=== PATIENT | male | born 1955 | race Caucasian/White ===

== ENCOUNTER 2023-03-18 17:35 | Inpatient (IN) | payer BC, SELFPAY ==
[2023-03-18] VITALS (20 sets, daily range): BP systolic 112–164; BP diastolic 43–68; PULSE 85–115; RESP 5–24; TEMP 36.9–38.8; O2SAT 94–99; BMI 23.6; BMI 24.9
--- NOTE | 2023-03-18 17:39 | ECG_ITS ---
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
[2023-03-18 18:06] LABS: Hematocrit 28.7 % (42.0-54.0); Hemoglobin 10.1 g/dL (14.0-18.0); Mean Corpuscular HGB Conc 35.2 g/dL (29.9-35.2); Mean Corpuscular Hemoglobin 30.6 pg (25.9-34.0); Platelet Count 125 10^3/uL (150-450); Red Cell Distribution Width 14.6 % (11.0-15.0); White Blood Count 7.1 10^3/uL (4.0-11.0)
[2023-03-18 18:17] LABS: INR 1.18; Prothrombin Time 12.4 sec (9.0-11.6)
--- NOTE | 2023-03-18 18:25 | ED_ITS ---
HPI - General Adult General Chief complaint: Abdominal Pain Stated complaint: G I BLEED Time Seen by Provider: 03/18/23 17:39 Source: patient Mode of arrival: ambulance Limitations: no limitations History of Present Illness HPI narrative: The patient is coming to us with generalized weakness as well as decreased energy and black stool in addition to decreased appetite for the last few days. The patient also have dizziness with standing up. According to the who is his caregiver at home that he is not able to ambulate and does not have the strength. The patient was brought to us by the EMS. He denies any abdominal pain chest pain or any coughing Related Data Allergies Allergy/AdvReac Type Severity Reaction Status Date / Time Penicillins Allergy Unknown Verified 03/18/23 17:39 morphine AdvReac Mild Drowsy Verified 03/18/23 17:39 Review of Systems ROS Status of ROS 10 or more systems reviewed and unremark able except as noted in history and below Exam Narrative Exam Narrative: Nurses notes and vital signs reviewed and patient is not hypoxic. General: Well-appearing and in no apparent distress. Skin: Warm, dry, no pallor noted. No rash. Head: Normocephalic, atraumatic. Neck: Supple, non-tender. Eye: Pupils are equal, round and EOMI. No scleral icterus. Ears, Nose, Mouth, and Throat: TM are clear, no nasal mucosal hypertrophy. Oral mucosa is moist, no posterior oropharynx erythema, uvula is mid-line Cardiovascular: Regular Rate and Rhythm without murmur, gallop or rub. Respiratory: No accessory muscle use or respiratory distress. Lungs are clear to auscultation, no wheezing, rales or rhonchi Chest Wall: no tenderness Back: No midline thoracic or lumbar vertebral tenderness. No CVA tenderness Musculoskeletal: normal ROM, no calf or popliteal tenderness, no lower extremity edema/swelling GI: Abdomen is soft, non-distended. Normal bowel sounds. No masses appreciated. No tenderness to palpation. No rebound, guarding, or rigidity noted. Rectal exam shows no hemorrhoids and no active bleeding Neurological: A&O x4. No cranial nerve dysfunction observed. No truncal ataxia. Moves all extremities. Sensation intact. Psychiatric: Cooperative and interactive. Normal mood and affect. Constitutional Vital Signs, click to edit/add: Last Vital Signs Temp 98.5 F 03/18/23 17:39 Pulse 93 H 03/18/23 17:39 Resp 10 L 03/18/23 17:39 BP 115/65 03/18/23 17:39 Pulse Ox 98 03/18/23 17:39 O2 Del Method Room Air 03/18/23 17:39 Course Vital Signs Vital signs: Vital Signs Temperature 98.5 F 03/18/23 17:39 Pulse Rate 93 H 03/18/23 17:39 Respiratory Rate 10 L 03/18/23 17:39 Blood Pressure 115/65 03/18/23 17:39 Pulse Oximetry 98 03/18/23 17:39 Oxygen Delivery Method Room Air 03/18/23 17:39 Temperature 98.5 F 03/18/23 17:39 Pulse Rate 93 H 03/18/23 17:39 Respiratory Rate 10 L 03/18/23 17:39 Blood Pressure 115/65 03/18/23 17:39 Pulse Oximetry 98 03/18/23 17:39 Oxygen Delivery Method Room Air 03/18/23 17:39 Medical Decision Making MDM Narrative Medical decision making narrative: The patient KG upon presentation showing sinus rhythm with a heart rate of [address] elevation or depression The patient CBC so far shows hemoglobin of 10 it was noted that the blood pressure was low upon arrival According to the he has been having a low blood pressure issue for the last few presentation to his primary care and his blood pressure medication has been lowered. The patient also had no recent blood workup to compare the hemoglobin to. The patient also had a recent urine infection recently Occult stool is negative The patient will mostly need to be admitted due to the fact that he have no strength and needs rehab. The patient workup as well as CAT scan is pending and his care will be transferred to Dr. Kamara Lab Data Labs: Lab Results 03/18/23 03/18/23 Range/Units 17:57 18:13 WBC 7.1 (4.0-11.0) 10^3/uL RBC 3.30 L (4.70-6.10) 10^6/uL Hgb 10.1 L (14.0-18.0) g/dL Hct 28.7 L (42.0-54.0) % MCV 87.0 (80.0-94.0) fL MCH 30.6 (25.9-34.0) pg MCHC 35.2 (29.9-35.2) g/dL RDW 14.6 (11.0-15.0) % Plt Count 125 L (150-450) 10^3/uL MPV 11.0 (9.5-13.5) fL Seg Neuts % (Manual) 91.0 Lymphocytes % (Manual) 4.0 L (20.5-60.0) % Monocytes % (Manual) 5.0 (1.7-12.0) % Eosinophils % (Manual) 0.0 L (0.9-7.0) % Basophils % (Manual) 0.0 L (0.2-2.0) % Neutrophils # (Manual) 6.46 (1.4-6.5) 10^3/uL Lymphocytes # (Manual) 0.28 L (1.20-3.80) 10^3/uL Monocytes # (Manual) 0.35 (0.30-0.80) 10^3/uL Eosinophils # (Manual) 0.00 (0.00-0.70) 10^3/uL Basophils # (Manual) 0.00 (0.00-0.10) 10^3/uL Hypochromasia 1+ Stool Occult Blood Negative Discharge Plan Discharge Patient Disposition: Still a Patient
[2023-03-18 18:28] LABS: Occult Blood Negative
[2023-03-18 18:29] LABS: Alanine Aminotransferase 30 U/L (16-63); Albumin Globulin Ratio 0.7; Albumin Level 2.4 g/dL (3.4-5.0); Alkaline Phosphatase 72 U/L (46-116); Anion Gap 13.6; Aspartate Amino Transferase 48 U/L (15-37); BUN Creatinine Ratio 13.5; Bilirubin Total 2.1 mg/dL (0.2-1.0); Calcium 8.8 mg/dL (8.5-10.1); Carbon Dioxide 22.5 mmol/L (21.0-32.0); Chloride 104 mmol/L (98-107); Estimated GFR (African America 41 (>=60); Estimated GFR (Non-African Ame 34 (>=60); Globulin 3.6 g/dL; Glucose 136 mg/dL (74-106); Potassium 4.1 mmol/L (3.5-5.1); Sodium 136 mmol/L (136-145)
[2023-03-18 18:31] LABS: Lymphocytes Absolute Manual 0.28 10^3/uL (1.20-3.80); Monocytes Absolute Manual 0.35 10^3/uL (0.30-0.80); Segmented Neut Absolute Manual 6.46 10^3/uL (1.4-6.5)
[2023-03-18 18:32] LABS: Hypochromasia 1+
--- NOTE | 2023-03-18 18:32 | CT_ITS ---
The [address] [address] Patient Name: EVELIA HALL MRN: [id number] date: 1955 Sex: M Assigned Patient Location: ER Current Patient Location: Accession/Order Number: [id number] Exam Date: 03/18/2023 18:40 Report Date: 03/18/2023 19:13 At the request of: NAS SANCHEZ Procedure: CT abdomen pelvis wo con EXAM: CT scan of the abdomen and pelvis without contrast. Dose reduction technique used: Automated exposure control and/or adjustment of the mA and/or kV according to patient size and/or use of iterative reconstruction technique. REASON FOR EXAM: rectal bleeding and hematuria COMPARISON: None FINDINGS: Diffuse bladder wall thickening. Cholecystectomy. Small amount of free fluid in the pelvis. No renal, ureteral or bladder calculi. No hydronephrosis. Normal appendix. No free intraperitoneal air. No dilated or thickened loops of small bowel or colon. Liver, pancreas, spleen, bilateral kidneys, and bilateral adrenal glands are otherwise unremarkable within the limitations of noncontrast CT. No lymphadenopathy in the abdomen or pelvis. Remainder unremarkable. CT/CT abdomen pelvis wo con IMPRESSION: 1. Bladder wall thickening could be due to chronic outlet obstruction versus cystitis, correlate clinically. 2. Otherwise, no other acute abnormalities in the abdomen or pelvis. Electronically authenticated by: JERI DU Date: 03/18/2023 19:13
[2023-03-18 18:36] LABS: Lactate/Lactic Acid 3.3 mmol/L (0.4-2.0)
[2023-03-18] MEDS: 0.9 % SODIUM CHLORIDE 1,000 ML 1000 ML IV (18:50)
[2023-03-18] MEDS: 0.9 % SODIUM CHLORIDE 1,000 ML 999 ML IV (20:19)
[2023-03-18 20:31] LABS: Lactate/Lactic Acid 1.2 mmol/L (0.4-2.0)
[2023-03-18 20:37] LABS: Bilirubin Urine SMALL (NEGATIVE); Blood Urine LARGE (NEGATIVE); Clarity Urine CLEAR (CLEAR); Color Urine BROWN (YELLOW); Glucose Urine UA NEGATIVE (NEGATIVE); Ketones Urine NEGATIVE (NEGATIVE); Leukocyte Esterase Urine MODERATE (NEGATIVE); Nitrite Urine NEGATIVE (NEGATIVE); Protein Urine 30 mg/dL (NEG/TRACE); Specific Gravity Urine 1.025 (1.005-1.025); pH Urine 5.5 (5.0-9.0)
[2023-03-18 20:39] LABS: Urine Microscopic Indicated YES
[2023-03-18 20:46] LABS: Bacteria Urine LARGE #/HPF (NONE SEEN); Cast Seen? NONE SEEN #/LPF (NONE SEEN); Crystals Seen? None Seen #/HPF (None Seen); Mucus Urine NONE SEEN (NONE SEEN); Squamous Epithelial Cell Urine MANY #/LPF (NONE/RARE); Transitional Epi Cells Urine FEW #/LPF (NONE SEEN)
[2023-03-18 20:47] LABS: Urine Culture Indicated YES
[2023-03-18] MEDS: CEFTRIAXONE 1,000 MG in 0.9 % SODIUM CHLORIDE 50 ML 100 MG IV (21:35)
[2023-03-18 22:00] LABS: Influenza Virus A Antigen Negative; Influenza Virus B Antigen Negative; Internal Control Within Normal Limits
[2023-03-18 22:01] LABS: SARS-CoV-2 NAA NOT DETECTED (NOT DETECTE)
[2023-03-18] MEDS: ACETAMINOPHEN 325 MG TABLET 650 MG PO (23:15)
[2023-03-19] VITALS (17 sets, daily range): BP systolic 112–175; BP diastolic 59–75; PULSE 77–105; RESP 16–20; TEMP 36.8–38.2; O2SAT 92–94
[2023-03-19] MEDS: TIMOLOL MALEATE 0.5% OP SOL 100 DROPS/5 ML BOTTLE 1 DROP OP ×3 (01:18→22:24)
[2023-03-19] MEDS: 0.9 % SODIUM CHLORIDE 1,000 ML 126 ML IV ×3 (01:19→16:58)
[2023-03-19 05:14] LABS: Basophils Percent Auto 0.5 % (0.2-2.0); Hematocrit 26.8 % (42.0-54.0); Hemoglobin 8.9 g/dL (14.0-18.0); Immature Granulocytes Abs Auto 0.03 10^3/uL (0.00-0.03); Immature Granulocytes Pct Auto 0.5 % (0.0-0.5); Lymphocytes Absolute Auto 0.4 10^3/uL (1.2-3.8); Mean Corpuscular HGB Conc 33.2 g/dL (29.9-35.2); Mean Corpuscular Hemoglobin 30.4 pg (25.9-34.0); Mean Corpuscular Volume 91.5 fL (80.0-94.0); Monocytes Absolute Auto 0.4 10^3/uL (0.3-0.8); Monocytes Percent Auto 6.8 % (1.7-12.0); Neutrophils Absolute Auto 5.3 10^3/uL (1.4-6.5); Neutrophils Percent Auto 85.2 % (43.0-75.0); Platelet Count 121 10^3/uL (150-450); Red Blood Count 2.93 10^6/uL (4.70-6.10); Red Cell Distribution Width 15.3 % (11.0-15.0); White Blood Count 6.2 10^3/uL (4.0-11.0)
[2023-03-19 05:35] LABS: Alanine Aminotransferase 23 U/L (16-63); Albumin Globulin Ratio 0.6; Alkaline Phosphatase 58 U/L (46-116); Anion Gap 14.3; Aspartate Amino Transferase 45 U/L (15-37); BUN Creatinine Ratio 16.9; Bilirubin Total 1.4 mg/dL (0.2-1.0); Calcium 7.8 mg/dL (8.5-10.1); Carbon Dioxide 20.3 mmol/L (21.0-32.0); Chloride 105 mmol/L (98-107); Estimated GFR (African America 55 (>=60); Estimated GFR (Non-African Ame 45 (>=60); Globulin 3.1 g/dL; Glucose 99 mg/dL (74-106); Potassium 3.6 mmol/L (3.5-5.1); Sodium 136 mmol/L (136-145); Total Protein 5.1 g/dL (6.4-8.2)
[2023-03-19] MEDS: PANTOPRAZOLE SODIUM 40 MG VIAL IV ×2 (09:01→20:16)
[2023-03-19] MEDS: TAMSULOSIN HCL 0.4 MG CAPSULE PO ×2 (09:02→20:16)
[2023-03-19] MEDS: METOPROLOL SUCCINATE 50 MG TAB.ER.24H 25 MG PO (09:02)
[2023-03-19] MEDS: DORZOLAMIDE HCL 2% OP SOL 200 DROP/10 ML BOTTLE OP (09:09)
[2023-03-19] MEDS: BRIMONIDINE 0.2% OP ×2 (10:09→20:21)
--- NOTE | 2023-03-19 10:14 | P.HP_ITS ---
H&P: HPI History of Present Illness Chief complaint: G I BLEED UTI Narrative: 67 y o male presents with generalized weakness, orthostatic hypotension and feeling weak and tired for about 2-3 months. He has been following up with Urology for recurrent UTI and has had three different antibiotics for his UTI. He reports he has been feeling weak, unsteady on his feet, tired for past few months but last couple of days, he could not even move or stand on his feet. He was able to ambulate with a walker just couple of days ago and now, can't even sit up from bed even with help. He also reports black colored stools for past few days. His Hb was 10 on arrival that trended down to 8.9 on repeat labs. He is unsure of his baseline Hb. He is also not sure of when and where his labs were drawn.. He repots his last colonoscopy was 10 years ago for routine screening and did not show anything significant. Patient has hx of CAD along with carotid artery disease and was started back on plavix 2 weeks ago for carotid artery disease. He denies nausea, vomiting, abdominal pain, cough, SOB. He reports dysuria and hesitancy. His UA was c/w UTI on arrival and elevated cr c/w NORTH. This morning - he reports still feeling weak, tired and having no energy. Review of Systems ROS Status of ROS 10 or more systems reviewed and unremark able except as noted in history and below [facility] Medical History (Updated 03/19/23 @ 10:33 by Shaikh Baldemar MD) BPH (benign prostatic hyperplasia) ?N40.0 - Benign prostatic hyperplasia without lower urinary tract symptoms (ICD-10) HTN (hypertension) ?I10 - Essential (primary) hypertension (ICD-10) HLD (hyperlipidemia) ?E78.5 - Hyperlipidemia, unspecified (ICD-10) Carotid artery disease ?I77.9 - Disorder of arteries and arterioles, unspecified (ICD-10) CAD (coronary artery disease) ?I25.10 - Atherosclerotic heart disease of [place] coronary artery without angina pectoris (ICD-10) Heart attack ?I21.9 - Acute myocardial infarction, unspecified (ICD-10) Type II diabetes mellitus ?E11.9 - Type 2 diabetes mellitus without complications (ICD-10) Surgical History S/P triple vessel bypass ?Z95.1 - Presence of aortocoronary bypass graft (ICD-10) Family History Other Family history of diabetes mellitus Family history of hypertension Family history of myocardial infarction Social History Within the past year, how often did you have a drink containing alcohol: never Within the past year, how often did you have six or more drinks on one occasion: never Score interpretation: A score less than 4 is consistent with normal alcohol consumption. Smoking status: Current every day smoker Non-prescribed substance use: denies use Previous occupational history: Retired Highest level of school completed/degree received: high school graduate Are you now , , , , never or living with a partner: In a typical week, how many times do you talk on the telephone with family, friends, or neighbors: twice per week How often do you get together with friends or relatives: twice per week How often do you attend mormon or latter-day services: 1-3 times per year Little interest or pleasure in doing things: not at all Feeling down, depressed, or hopeless: not at all Feel stressed/tense/nervous/anxious/difficulty sleeping: not at all Do you think of yourself as: straight/heterosexual Gender Identity: male Meds Home Medications and Allergies Home Medications Medication Instructions Recorded Confirmed Type albuterol sulfate 90 mcg/actuation 2 puff inhalation Q4H PRN 03/18/23 03/18/23 History aerosol inhaler shortness of breath or wheezing aspirin 81 mg chewable tablet 81 mg PO DAILY 03/18/23 03/18/23 History brimonidine 0.2 % eye drops 1 drp ophthalmic (eye) BID 03/18/23 03/18/23 History clopidogrel 75 mg tablet (Plavix) 75 mg PO DAILY 03/18/23 03/18/23 History dorzolamide 2 % eye drops 1 drp ophthalmic (eye) DAILY 03/18/23 03/18/23 History ezetimibe 10 mg tablet 10 mg PO DAILY 03/18/23 03/18/23 History fenofibrate micronized 200 mg 200 mg PO DAILY 03/18/23 03/18/23 History capsule krill COq 1 1 tab PO DAILY 03/18/23 03/18/23 History metoprolol succinate 50 mg 25 mg PO DAILY 03/18/23 03/18/23 History tablet,extended release 24 hr tamsulosin 0.4 mg capsule 0.4 mg PO BID 03/18/23 03/18/23 History timolol maleate 0.5 % eye drops 1 drp ophthalmic (eye) Q12H 03/18/23 03/18/23 History valsartan 320 mg tablet 80 mg PO DAILY 03/18/23 03/18/23 History Allergies Allergy/AdvReac Type Severity Reaction Status Date / Time Penicillins Allergy Intermediate Verified 03/18/23 23:38 morphine AdvReac Mild Drowsy Verified 03/18/23 23:38 Exam Constitutional Vital Signs, click to edit/add: Last Vital Signs Temp 98.5 F 03/19/23 04:43 Pulse 94 H 03/19/23 10:08 Resp 18 03/19/23 04:43 BP 112/66 03/19/23 04:43 Pulse Ox 94 L 03/19/23 04:43 O2 Del Method Room Air 03/19/23 04:43 Documenting provider has reviewed patient's vital signs: yes Common normals: no apparent distress and oriented x3 General appearance: cooperative, ill appearing and frail appearing HENMT Common normals: normocephalic and head/scalp atraumatic Respiratory Common normals: normal respiratory effort and clear to auscultation bilaterally Effort & inspection: able to speak in complete sentences Auscultation: clear to auscultation bilaterally Cardio Common normals: regular rate, S1 normal heart sound and S2 normal heart sound Rate: regular rate Heart sounds: S1 normal and S2 normal GI Common normals: Normal to inspection, nondistended, normoactive bowel sounds present, soft to palpation, non-tender and no hepatosplenomegaly Palpation: soft and no hepatosplenomegaly Extremity Common normals: no clubbing, cyanosis or edema Neuro Common normals: oriented x3, moves all extremities and no focal motor deficits Psych Common normals: mental status grossly normal, denies hallucinations, denies homicidal ideation and denies suicidal ideation Results Labs Labs: Short CBC 03/18/23 03/19/23 Range/Units 17:57 04:13 WBC 7.1 6.2 (4.0-11.0) 10^3/uL Hgb 10.1 L 8.9 L (14.0-18.0) g/dL Hct 28.7 L 26.8 L (42.0-54.0) % Plt Count 125 L 121 L (150-450) 10^3/uL BMP 03/18/23 03/19/23 17:57 04:13 Sodium 136 136 Potassium 4.1 3.6 Chloride 104 105 Carbon Dioxide 22.5 20.3 L BUN 27.0 H 26.0 H Creatinine 2.00 H 1.54 H Glucose 136 H 99 Calcium 8.8 7.8 L Liver Function 03/18/23 03/19/23 Range/Units 17:57 04:13 Total Bilirubin 2.1 H 1.4 H (0.2-1.0) mg/dL AST 48 H 45 H (15-37) U/L ALT 30 23 (16-63) U/L Alkaline Phosphatase 72 58 (46-116) U/L Albumin 2.4 L 2.0 L (3.4-5.0) g/dL Urine 03/18/23 Range/Units 20:25 Urine Color Brown A (YELLOW) Urine Clarity Clear (CLEAR) Urine pH 5.5 (5.0-9.0) Ur Specific [place] 1.025 (1.005-1.025) Urine Protein 30 A (NEG/TRACE) mg/dL Urine Glucose (UA) Negative (NEGATIVE) mg/dL Assessment and Plan Assessment and Plan (1) Upper GI bleed: Assessment and Plan: Hb 8.9 with melena, started when he was put back on Plavix for carotid artery disease. Hold ASA, Plavix. Monitor H&H C/w protonix 40 q12. Last GI work up colonoscopy about 10 years ago as per patient. (2) Melena: Assessment and Plan: Melena reported by patient. But occult blood is negative On Protonix 40 q12. [facility] (3) UTI (urinary tract infection): Assessment and Plan: Recurrent UTI, failed outpatient abx on three occasions. Started on rocephin. Follow up urine culture. Qualifiers: Urinary tract infection type: acute cystitis Hematuria presence: with hematuria Qualified Code(s): N30.01 - Acute cystitis with hematuria (4) Acute kidney injury: Assessment and Plan: Normal creatinine at baseline. Presented with Cr of 2, improving with IV fluids. (5) Generalized weakness: Assessment and Plan: Generalized weakness, unable to ambulate. PT/OT eval and rx Likely due to GIB, dehydration, recurrent UTI (6) HTN (hypertension): Assessment and Plan: Presented with orthostasis and low blood pressure. Hold valsartan. C/w Lopressor for now. Qualifiers: Hypertension type: primary hypertension Qualified Code(s): I10 - Essential (primary) hypertension (7) Type II diabetes mellitus: Assessment and Plan: SSI while in patient. Qualifiers: Diabetes mellitus long term acute care registered nurse insulin use: without snf use Diabetes mellitus complication status: without complication Qualified Code(s): E11.9 - Type 2 diabetes mellitus without complications (8) CAD (coronary artery disease): Assessment and Plan: Hold ASA, plavix. C/w BB and statin s/p CABG in 2006 and then PCI on few occasions. No coronary intervention since 5 years atleast according to patient. Qualifiers: Coronary Disease-Associated Artery/Lesion type: deering artery [place] vs. transplanted heart: deering heart Associated angina: without angina Qualified Code(s): I25.10 - Atherosclerotic heart disease of de[place] coronary artery without angina pectoris (9) Carotid artery disease: Assessment and Plan: 100% occlusion on right side, 70% on left side. Hold ASA, plavix for now. C/w statin Qualifiers: Carotid artery disease type: stenosis Laterality: bilateral Qualified Code(s): I65.23 - Occlusion and stenosis of bilateral carotid arteries (10) BPH (benign prostatic hyperplasia): Assessment and Plan: likely responsible for recurrent UTI. C/w flomax. Qualifiers: Lower urinary tract symptom presence: symptoms present Lower urinary tract symptom detail: urinary obstruction Qualified Code(s): N40.1 - Benign prostatic hyperplasia with lower urinary tract symptoms; N13.8 - Other obstructive and reflux uropathy (11) HLD (hyperlipidemia): Assessment and Plan: C/w ezetimibe and fenofibrate. Qualifiers: Hyperlipidemia type: unspecified Qualified Code(s): E78.5 - Hyperlipidemia, unspecified Plan Will change patient to inpatient as multiple active issues at high risk of progression resulting in poor clinical outcome - UTI, NORTH, Upper GI bleed, orthostatic hypotension from dehydration, and generalized weakness. Anticipate that patient will need 2-3 inpatient stay to manage his active/acute problems to reduce the risk of poor outcomes and readmission
--- NOTE | 2023-03-19 10:42 | CM.NOTE ---
Rounds made with Dr. Mcdermott, will consult general surgery today. No discharge, attempting to get recent labs from primary care doctor for baseline Hgb.
[2023-03-19 10:51] LABS: Hematocrit 29.2 % (42.0-54.0)
[2023-03-19 12:33] LABS: Percent Iron Saturation 4.9 %
--- NOTE | 2023-03-19 19:40 | NUTR.NU ---
Pt admitted w/regular diet order and fair PO intakes. NPO ordered 03/20/23 by surgeon. Nutrition assessment to follow when pt is again able to eat PO.
--- NOTE | 2023-03-19 19:53 | PC.NURSE ---
cloudy dark rios color urine
[2023-03-19] MEDS: ACETAMINOPHEN 325 MG TABLET 650 MG PO (20:16)
[2023-03-19] MEDS: CEFTRIAXONE 1,000 MG in 0.9 % SODIUM CHLORIDE 50 ML 100 MG IV (21:16)
[2023-03-20] VITALS (53 sets, daily range): BP systolic 116–185; BP diastolic 68–87; PULSE 78–109; RESP 12–25; TEMP 36.7–37.6; O2SAT 90–97; BMI 24.9
[2023-03-20] MEDS: 0.9 % SODIUM CHLORIDE 1,000 ML 126 ML IV ×3 (01:39→17:51)
[2023-03-20 05:07] LABS: Transferrin 151 mg/dL (177-329)
[2023-03-20 05:46] LABS: Basophils Percent Auto 0.3 % (0.2-2.0); Eosinophils Percent Auto 0.2 % (0.9-7.0); Hematocrit 26.7 % (42.0-54.0); Hemoglobin 8.9 g/dL (14.0-18.0); Immature Granulocytes Abs Auto 0.03 10^3/uL (0.00-0.03); Immature Granulocytes Pct Auto 0.5 % (0.0-0.5); Lymphocytes Absolute Auto 0.5 10^3/uL (1.2-3.8); Lymphocytes Percent Auto 9.2 % (20.5-60.0); Mean Corpuscular HGB Conc 33.3 g/dL (29.9-35.2); Mean Corpuscular Hemoglobin 30.5 pg (25.9-34.0); Mean Corpuscular Volume 91.4 fL (80.0-94.0); Mean Platelet Volume 11.3 fL (9.5-13.5); Monocytes Absolute Auto 0.4 10^3/uL (0.3-0.8); Neutrophils Absolute Auto 4.9 10^3/uL (1.4-6.5); Neutrophils Percent Auto 83.8 % (43.0-75.0); Platelet Count 139 10^3/uL (150-450); Red Blood Count 2.92 10^6/uL (4.70-6.10); Red Cell Distribution Width 15.5 % (11.0-15.0); White Blood Count 5.9 10^3/uL (4.0-11.0)
[2023-03-20 06:04] LABS: Alanine Aminotransferase 24 U/L (16-63); Albumin Globulin Ratio 0.6; Albumin Level 1.8 g/dL (3.4-5.0); Alkaline Phosphatase 55 U/L (46-116); Anion Gap 17.1; Aspartate Amino Transferase 46 U/L (15-37); BUN Creatinine Ratio 23.7; Bilirubin Total 1.3 mg/dL (0.2-1.0); Calcium 7.9 mg/dL (8.5-10.1); Carbon Dioxide 19.6 mmol/L (21.0-32.0); Chloride 107 mmol/L (98-107); Estimated GFR (African America >60 (>=60); Estimated GFR (Non-African Ame >60 (>=60); Globulin 3.2 g/dL; Glucose 96 mg/dL (74-106); Potassium 3.7 mmol/L (3.5-5.1); Sodium 140 mmol/L (136-145)
--- NOTE | 2023-03-20 07:47 | ECG_ITS ---
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
[2023-03-20 08:52] LABS: Troponin I High Sensitivity 631.7 pg/mL (4.0-76.1)
--- NOTE | 2023-03-20 09:50 | PC.NURSE ---
Dr. Mcdermott into speak with patient about transfer for cardiac intervention.
--- NOTE | 2023-03-20 10:16 | CM.NOTE ---
Rounds made with Dr. Mcdermott, pt transferred to ICU for elevated troponin's. Discussed with pt about transfer to higher level of care. Pt in agreement. also at bedside and updated both on pt's condition and new labs and EKG.
--- NOTE | 2023-03-20 10:50 | P.DS_ITS ---
DS: Providers Provider Date of admission: 03/19/23 10:40 Primary care physician: MIKE BHATIA Consults: 03/19/23 09:00 Occupational Therapy Eval and Treat Routine Reason for consultation: Eval and treat; Weakness Has provider been notified: No Physical Therapy Eval and Treat Routine Reason for consultation: Eval and treat; Weakness Has provider been notified: No 03/19/23 10:14 Consult to General Surgeon Routine Consulting Provider: Lamin Monte Reason for consultation: Melanotic stools possible IGU bleed Attending physician on discharge: Shaikh Baldemar Discharging clinician: Shaikh Baldemar DS: Diagnosis Discharge Diagnosis (1) NSTEMI (non-ST elevated myocardial infarction): Assessment and plan: Patient reported intermittent midsternal chest pain along with SOB overnight. Earlier morning, when I was notified of it - I ordered an EKG and troponin for him No acute changes noted on EKG but troponin > 600. Patient is asmyptomatic now. Resumed ASA, plavix. Hold heparin drip for now. Case discussed with cardiology - accepted for transfer to [facility] for higher level of care and possibly [facility]. Transferred to ICU as change in clinical status. (2) Upper GI bleed: Assessment and plan: Initially presumed to have upper GI bleed with low Hb and reports of melena but Hb remained stable, no evidence of melena in the hospital. Also - iron profile not consistent with someone who has chronic GI bleed with Ferritin of 600 and I suspect he likely has anemia of chronic disease. We obtained records from three different hospitals and his PCP and no place had a CBC on him so unclear what his baseline is. (3) Melena: Assessment and plan: Reported by patient but no evidence of it since admission. Negative occult blood. (4) UTI (urinary tract infection): Assessment and plan: UA cw UTI - on rocephin. Recurrent UTI in past 1-2 months likely due to underlying BPH. Qualifiers: Hematuria presence: with hematuria Urinary tract infection type: acute cystitis Qualified Code(s): N30.01 - Acute cystitis with hematuria (5) Acute kidney injury: Assessment and plan: Presented with Cr of 2 --> now 1.2 .likely pre renal and back to baseline. (6) Generalized weakness: Assessment and plan: Feeling slightly better but still quite weak, unable to get up without assistance. PT/OT eval Multifactorial - due to dehydration, UTI (7) HTN (hypertension): Assessment and plan: Above goal now. Came in with orthostatic hypotension. Resume valsartan Qualifiers: Hypertension type: primary hypertension Qualified Code(s): I10 - Essential (primary) hypertension (8) Type II diabetes mellitus: Assessment and plan: SSI while in patient. Qualifiers: Diabetes mellitus complication status: without complication Diabetes mellitus equipment [employer] insulin use: without fdc use Qualified Code(s): E11.9 - Type 2 diabetes mellitus without complications (9) CAD (coronary artery disease): Assessment and plan: s/p CABG and later on PCI about 4 years ago. On ASA, plavix and Toprol for it. Qualifiers: Associated angina: without angina Coronary Disease-Associated Artery/Lesion type: [place] artery [place] vs. transplanted heart: [place] heart Qualified Code(s): I25.10 - Atherosclerotic heart disease of [place] coronary artery without angina pectoris (10) Carotid artery disease: Assessment and plan: On ASA, plavix, zetia and fenofibrate. Not on statin due to intolerance to statins. Qualifiers: Carotid artery disease type: stenosis Laterality: bilateral Qualified Code(s): I65.23 - Occlusion and stenosis of bilateral carotid arteries (11) BPH (benign prostatic hyperplasia): Assessment and plan: On Flomax Qualifiers: Lower urinary tract symptom detail: urinary obstruction Lower urinary tract symptom presence: symptoms present Qualified Code(s): N40.1 - Benign prostatic hyperplasia with lower urinary tract symptoms; N13.8 - Other obstructive and reflux uropathy (12) HLD (hyperlipidemia): Assessment and plan: On zetia and fenofibrate. Not on statin due to intolerance to statins. Qualifiers: Hyperlipidemia type: unspecified Qualified Code(s): E78.5 - Hyperlipidemia, unspecified DS: Summary Hospital Course Hospital Course: 67 y o male presented with generalized weakness, orthostatic hypotension and feeling weak and tired for about 2-3 months. He had been following up with Urology for recurrent UTI and has had three different antibiotics for his UTI. He came to ED because he felt so weak that he could not even move or stand on his feet. He was able to ambulate with a walker just couple of days ago and now, can't even sit up on bed without help. He also reported black colored stools for past few days. His Hb was 10 and remained stable around 8-10 with no evidence of active/occult bleed or melena during hospital admission. His anemia work up was consistent with anemia of chronic disease. He is unsure of his baseline Hb and we were not able to find any recent CBC from nearby hospitals and his PCP His work up and clinical evaluation revealed severe dehydration, NORTH sec to UTI for which he was treated with IV fluids, rocephin. His renal function improved and patient himself also started to feel a little bit better. He was NPO for EGD this morning but experienced intermittent chest discomfort/pressure along with SOB overnight for which we ordered an EKG, troponin to r/o underlying cardiac etiology for his chest discomfort. His EKG did not reveal any sig changes but troponin was elevated at 600. Patient was transfer to ICU for NSTEMI - started back on ASA, plavix. Holding heparin for now. Case discussed with Cardiology - patient accepted for transfer to [facility] for higher level of care of possible LHC. Status at Discharge Overall status at discharge: patient is not back to baseline Time Spent with Patient Time attestation: Total time spent providing and/or coordinating discharge services: Time spent: greater than 30 minutes Exam Constitutional Vital Signs, click to edit/add: Last Vital Signs Temp 98.5 F 03/20/23 07:48 Pulse 108 H 03/20/23 10:00 Resp 18 03/20/23 07:48 BP 161/81 H 03/20/23 07:48 Pulse Ox 96 03/20/23 10:00 O2 Del Method Room Air 03/20/23 07:48 Documenting provider has reviewed patient's vital signs: yes Common normals: no apparent distress and oriented x3 General appearance: cooperative, ill appearing and frail appearing [facility] Common normals: normocephalic and head/scalp atraumatic Respiratory Common normals: normal respiratory effort and clear to auscultation bilaterally Effort & inspection: able to speak in complete sentences Auscultation: clear to auscultation bilaterally Cardio Common normals: regular rate, S1 normal heart sound and S2 normal heart sound Rate: regular rate Heart sounds: S1 normal and S2 normal GI Common normals: Normal to inspection, nondistended, normoactive bowel sounds present, soft to palpation, non-tender and no hepatosplenomegaly Palpation: soft and no hepatosplenomegaly Extremity Common normals: no clubbing, cyanosis or edema Neuro Common normals: oriented x3, moves all extremities and no focal motor deficits Psych Common normals: mental status grossly normal, denies hallucinations, denies homicidal ideation and denies suicidal ideation DS: Data Data Completed and Pending Labs on day of discharge: Labs from last 24 hours 03/20/23 03/20/23 03/19/23 08:15 04:07 10:40 WBC 5.9 RBC 2.92 L Hgb 8.9 L Hct 26.7 L MCV 91.4 MCH 30.5 MCHC 33.3 RDW 15.5 H Plt Count 139 L MPV 11.3 Neut % (Auto) 83.8 H Lymph % (Auto) 9.2 L [place] % (Auto) 6.0 Eos % (Auto) 0.2 L Baso % (Auto) 0.3 Neut # (Auto) 4.9 Lymph # (Auto) 0.5 L [place] # (Auto) 0.4 Eos # (Auto) 0.0 Baso # (Auto) 0.0 Abs Immat Gran (auto) 0.03 Imm/Tot Granulo (auto) 0.5 Sodium 140 Potassium 3.7 Chloride 107 Carbon Dioxide 19.6 L Anion Gap 17.1 BUN 28.0 H Creatinine 1.18 Est GFR ( Amer) >60 Est GFR (Non-Af Amer) >60 BUN/Creatinine Ratio 23.7 Glucose 96 Calcium 7.9 L Iron 8.0 L TIBC 164.0 L % Saturation 4.9 Transferrin 151 L Ferritin 667.0 H Total Bilirubin 1.3 H AST 46 H ALT 24 Alkaline Phosphatase 55 Troponin I High Sens 631.7 H* Total Protein 5.0 L Albumin 1.8 L Globulin 3.2 Albumin/Globulin Ratio 0.6 Vitamin B12 528.0 Folate 4.40 L 03/19/23 10:20 WBC RBC Hgb 10.0 L Hct 29.2 L MCV MCH MCHC RDW Plt Count MPV Neut % (Auto) Lymph % (Auto) [place] % (Auto) Eos % (Auto) Baso % (Auto) Neut # (Auto) Lymph # (Auto) [place] # (Auto) Eos # (Auto) Baso # (Auto) Abs Immat Gran (auto) Imm/Tot Granulo (auto) Sodium Potassium Chloride Carbon Dioxide Anion Gap BUN Creatinine Est GFR ( Amer) Est GFR (Non-Af Amer) BUN/Creatinine Ratio Glucose Calcium Iron TIBC % Saturation Transferrin Ferritin Total Bilirubin AST ALT Alkaline Phosphatase Troponin I High Sens Total Protein Albumin Globulin Albumin/Globulin Ratio Vitamin B12 Folate Discharge Plan Discharge Disposition: Xfer Acute Care Hospital Condition: Fair Discharge Location: [facility] Discharge location: Accepting physician is Dr Billings (hospitalist)
[2023-03-20] MEDS: PANTOPRAZOLE SODIUM 40 MG VIAL IV ×2 (10:59→21:29)
[2023-03-20] MEDS: CLOPIDOGREL BISULFATE 75 MG TABLET PO (11:00)
[2023-03-20] MEDS: ASPIRIN 81 MG TAB.CHEW PO (11:00)
[2023-03-20] MEDS: LOSARTAN POTASSIUM 50 MG TABLET 100 MG PO (11:00)
[2023-03-20] MEDS: CLOPIDOGREL BISULFATE 75 MG TABLET 300 MG PO (11:00)
[2023-03-20] MEDS: FENOFIBRATE 54 MG TABLET 162 MG PO (11:02)
[2023-03-20] MEDS: METOPROLOL SUCCINATE 25 MG TAB.ER.24H PO (11:02)
[2023-03-20] MEDS: EZETIMIBE 10 MG TABLET PO (11:03)
[2023-03-20] MEDS: TAMSULOSIN HCL 0.4 MG CAPSULE PO ×2 (11:04→21:29)
[2023-03-20] MEDS: DORZOLAMIDE HCL 2% OP SOL 200 DROP/10 ML BOTTLE OP (11:04)
[2023-03-20] MEDS: TIMOLOL MALEATE 0.5% OP SOL 100 DROPS/5 ML BOTTLE 1 DROP OP ×2 (11:05→22:09)
[2023-03-20] MEDS: BRIMONIDINE 0.2% OP ×2 (11:05→21:31)
[2023-03-20 11:53] LABS: Troponin I High Sensitivity 1098.8 pg/mL (4.0-76.1)
[2023-03-20] MEDS: HEPARIN SODIUM,PORCINE/D5W 25,000 UNIT/500 ML IV.SOLN 17.856 UNIT IV (13:14)
[2023-03-20] MEDS: CEFTRIAXONE 1,000 MG in 0.9 % SODIUM CHLORIDE 50 ML 50 MG IV (21:29)
[2023-03-20] MEDS: ACETAMINOPHEN 325 MG TABLET 650 MG PO (22:08)
[2023-03-21] VITALS (7 sets, daily range): BP systolic 143–147; BP diastolic 41–70; PULSE 87–100; RESP 16–25; TEMP 36.9–37.4; O2SAT 95
[2023-03-21] MEDS: 0.9 % SODIUM CHLORIDE 1,000 ML 126 ML IV (02:54)
[2023-03-21 03:29] LABS: Basophils Percent Auto 0.4 % (0.2-2.0); Eosinophils Percent Auto 0.4 % (0.9-7.0); Hematocrit 26.4 % (42.0-54.0); Hemoglobin 8.8 g/dL (14.0-18.0); Immature Granulocytes Abs Auto 0.04 10^3/uL (0.00-0.03); Immature Granulocytes Pct Auto 0.8 % (0.0-0.5); Lymphocytes Absolute Auto 0.5 10^3/uL (1.2-3.8); Lymphocytes Percent Auto 10.2 % (20.5-60.0); Mean Corpuscular HGB Conc 33.3 g/dL (29.9-35.2); Mean Corpuscular Hemoglobin 29.8 pg (25.9-34.0); Mean Corpuscular Volume 89.5 fL (80.0-94.0); Mean Platelet Volume 10.6 fL (9.5-13.5); Monocytes Absolute Auto 0.3 10^3/uL (0.3-0.8); Monocytes Percent Auto 6.3 % (1.7-12.0); Neutrophils Absolute Auto 4.2 10^3/uL (1.4-6.5); Neutrophils Percent Auto 81.9 % (43.0-75.0); Platelet Count 156 10^3/uL (150-450); Red Blood Count 2.95 10^6/uL (4.70-6.10); Red Cell Distribution Width 15.4 % (11.0-15.0); White Blood Count 5.1 10^3/uL (4.0-11.0)
[2023-03-21 03:47] LABS: Alanine Aminotransferase 37 U/L (16-63); Albumin Globulin Ratio 0.6; Albumin Level 1.8 g/dL (3.4-5.0); Alkaline Phosphatase 67 U/L (46-116); Anion Gap 13.7; Aspartate Amino Transferase 80 U/L (15-37); BUN Creatinine Ratio 20.6; Bilirubin Total 1.8 mg/dL (0.2-1.0); Calcium 8.3 mg/dL (8.5-10.1); Carbon Dioxide 19.6 mmol/L (21.0-32.0); Chloride 110 mmol/L (98-107); Estimated GFR (African America >60 (>=60); Estimated GFR (Non-African Ame >60 (>=60); Globulin 3.2 g/dL; Glucose 94 mg/dL (74-106); Potassium 3.3 mmol/L (3.5-5.1); Sodium 140 mmol/L (136-145)
[2023-03-21 04:51] LABS: PTT Heparin Monitor 54.2 sec (48.2-68.6)
[2023-03-21] MEDS: POTASSIUM CHLORIDE 10 MEQ ER TABLET 40 MEQ PO (09:12)
--- NOTE | 2023-03-21 10:05 | CM.NOTE ---
Rounds made with Dr. Mcdermott. Transport here to transfer to [facility]. Family in room as well and no questions offered.
--- NOTE | 2023-03-21 10:05 | PM.DS1 ---
DS: Providers Provider Date of admission: 03/19/23 10:40 Primary care physician: MIKE BHATIA Consults: 03/19/23 09:00 Occupational Therapy Eval and Treat Routine Reason for consultation: Eval and treat; Weakness Has provider been notified: No Physical Therapy Eval and Treat Routine Reason for consultation: Eval and treat; Weakness Has provider been notified: No 03/19/23 10:14 Consult to General Surgeon Routine Consulting Provider: Lamin Monte Reason for consultation: Melanotic stools possible IGU bleed Attending physician on discharge: Shaikh Baldemar Discharging clinician: Shaikh Baldemar Anticipated date of discharge: 03/21/23 DS: Diagnosis Discharge Diagnosis (1) NSTEMI (non-ST elevated myocardial infarction): Assessment and plan: Patient reported intermittent midsternal chest pain along with SOB overnight on 03/20/23 for which an EKG and cardiac enzymes were ordered No acute changes noted on EKG but troponin > 600 --> 1000. Resumed ASA, plavix. Started on heparin drip. Case discussed with cardiology - accepted for transfer to [facility] for higher level of care and possibly [facility]. due to bed unavailability, patient remained in ICU yesterday and will leave earlier this morning to [facility]. Remained chest pain free last 24 hours. No events on tele. (2) Upper GI bleed: Assessment and plan: Initially presumed to have upper GI bleed with low Hb and reports of melena but Hb remained stable, no evidence of melena in the hospital. Also - iron profile not consistent with someone who has chronic GI bleed with Ferritin of 600 and I suspect he likely has anemia of chronic disease. We obtained records from three different hospitals and his PCP and no place had a CBC on him so unclear what his baseline is. (3) Melena: Assessment and plan: Reported by patient but no evidence of it since admission. Negative occult blood. (4) UTI (urinary tract infection): Assessment and plan: UA sec to Ecoli. - on rocephin. Recurrent UTI in past 1-2 months likely due to underlying BPH. Fu sensitivity Qualifiers: Urinary tract infection type: acute cystitis Hematuria presence: with hematuria Qualified Code(s): N30.01 - Acute cystitis with hematuria (5) Acute kidney injury: Assessment and plan: Presented with Cr of 2 --> now 1.2 .likely pre renal and back to baseline. (6) Generalized weakness: Assessment and plan: Feeling slightly better but still quite weak, unable to get up without assistance. PT/OT eval Multifactorial - due to dehydration, UTI (7) HTN (hypertension): Assessment and plan: Came in with orthostatic hypotension. Now above goal. Resumed valsartan that was also on hold due to NORTH Qualifiers: Hypertension type: primary hypertension Qualified Code(s): I10 - Essential (primary) hypertension (8) Type II diabetes mellitus: Assessment and plan: SSI while in patient. Qualifiers: Diabetes mellitus director long term care insulin use: without director long term care use Diabetes mellitus complication status: without complication Qualified Code(s): E11.9 - Type 2 diabetes mellitus without complications (9) CAD (coronary artery disease): Assessment and plan: s/p CABG and later on PCI about 4 years ago. On ASA, plavix and Toprol for it. Qualifiers: Coronary Disease-Associated Artery/Lesion type: [place] artery [place] vs. transplanted heart: [place] heart Associated angina: without angina Qualified Code(s): I25.10 - Atherosclerotic heart disease of [place] coronary artery without angina pectoris (10) Carotid artery disease: Assessment and plan: On ASA, plavix, zetia and fenofibrate. Not on statin due to intolerance to statins. Qualifiers: Carotid artery disease type: stenosis Laterality: bilateral Qualified Code(s): I65.23 - Occlusion and stenosis of bilateral carotid arteries (11) BPH (benign prostatic hyperplasia): Assessment and plan: On Flomax Qualifiers: Lower urinary tract symptom presence: symptoms present Lower urinary tract symptom detail: urinary obstruction Qualified Code(s): N40.1 - Benign prostatic hyperplasia with lower urinary tract symptoms; N13.8 - Other obstructive and reflux uropathy (12) HLD (hyperlipidemia): Assessment and plan: On zetia and fenofibrate. Not on statin due to intolerance to statins. Qualifiers: Hyperlipidemia type: unspecified Qualified Code(s): E78.5 - Hyperlipidemia, unspecified DS: Summary Hospital Course Hospital Course: 67 y o male presented with generalized weakness, orthostatic hypotension, generalized weakness for about 2-3 months. He had been following up with Urology for recurrent UTI and has had three different antibiotics for his UTI. He came to ED because he felt so weak that he could not even move or stand on his feet. He was able to ambulate with a walker just couple of days ago and now couldn't even sit up on bed without help. He also reported black colored stools for past few days. His Hb was 10 and remained stable around 8-10 with no evidence of active/occult bleed or melena during hospital admission. His anemia work up was consistent with anemia of chronic disease. He is unsure of his baseline Hb and we were not able to find any recent CBC from nearby hospitals and his PCP His work up and clinical evaluation also revealed severe dehydration, NORTH sec to UTI for which he was treated with IV fluids, rocephin. Urine culture is growng E coli (sensitivity is not back at this time). His renal function improved and patient himself also started to feel a little bit better. He was NPO for EGD on 03/20/23 but experienced intermittent chest discomfort/pressure along with SOB overnight for which we ordered an EKG, troponin to r/o underlying cardiac etiology for his chest discomfort. His EKG did not reveal any sig changes but troponin was elevated at 600 --> 1000 Patient was transfer to ICU for NSTEMI - started back on ASA, plavix and IV heparin.Case discussed with Cardiology - patient accepted for transfer to [facility] for higher level of care of possible LHC. He remained at our facility all day due to unavailability of beds at [facility], and remained asymptomatic throughout past 24 hours. He is ready to leave today and is stable for transfer. Status at Discharge Functional status at discharge: uses cane/walker Overall status at discharge: patient is progressing back to baseline Time Spent with Patient Time attestation: Total time spent providing and/or coordinating discharge services: Time spent: greater than 30 minutes Exam Constitutional Vital Signs, click to edit/add: Last Vital Signs Temp 98.4 F 03/21/23 03:25 Pulse 100 H 03/21/23 08:00 Resp 16 03/21/23 08:00 BP 147/41 H 03/21/23 03:25 Pulse Ox 95 03/21/23 08:00 O2 Del Method Room Air 03/21/23 06:00 Documenting provider has reviewed patient's vital signs: yes Common normals: no apparent distress and oriented x3 General appearance: cooperative, ill appearing and frail appearing Respiratory Common normals: normal respiratory effort and clear to auscultation bilaterally Effort & inspection: able to speak in complete sentences Auscultation: clear to auscultation bilaterally Cardio Common normals: regular rate, S1 normal heart sound and S2 normal heart sound Rate: regular rate Heart sounds: S1 normal and S2 normal Extremity Common normals: no clubbing, cyanosis or edema Neuro Common normals: oriented x3, moves all extremities and no focal motor deficits Psych Common normals: mental status grossly normal, denies hallucinations, denies homicidal ideation and denies suicidal ideation DS: Data Data Completed and Pending Labs on day of discharge: Labs from last 24 hours 03/21/23 03/20/23 03/20/23 03:15 20:20 11:05 WBC 5.1 RBC 2.95 L Hgb 8.8 L Hct 26.4 L MCV 89.5 MCH 29.8 MCHC 33.3 RDW 15.4 H Plt Count 156 MPV 10.6 Neut % (Auto) 81.9 H Lymph % (Auto) 10.2 L [place] % (Auto) 6.3 Eos % (Auto) 0.4 L Baso % (Auto) 0.4 Neut # (Auto) 4.2 Lymph # (Auto) 0.5 L [place] # (Auto) 0.3 Eos # (Auto) 0.0 Baso # (Auto) 0.0 Abs Immat Gran (auto) 0.04 H Imm/Tot Granulo (auto) 0.8 H PTT (Heparin Absorb) 54.2 50.0 Sodium 140 Potassium 3.3 L Chloride 110 H Carbon Dioxide 19.6 L Anion Gap 13.7 BUN 22.0 H Creatinine 1.07 Est GFR ( Amer) >60 Est GFR (Non-Af Amer) >60 BUN/Creatinine Ratio 20.6 Glucose 94 Calcium 8.3 L Total Bilirubin 1.8 H AST 80 H ALT 37 Alkaline Phosphatase 67 Troponin I High Sens 1098.8 H* Total Protein 5.0 L Albumin 1.8 L Globulin 3.2 Albumin/Globulin Ratio 0.6 Preliminary micro results at discharge 03/18/23 22:48 - Preliminary Blood NO GROWTH AT 36-48 HOURS. FINAL TO FOLLOW. 03/18/23 22:38 Blood Culture Result 1 - Preliminary Blood NO GROWTH AT 36-48 HOURS. FINAL TO FOLLOW. 03/18/23 20:25 Urine Culture - Preliminary Urine,Clean Catch Escherichia coli Discharge Plan Discharge Disposition: Xfer Acute Care Hospital Condition: Fair Discharge Location: [facility] Discharge location: Accepting physician is Dr Billings (hospitalist)
== END 2023-03-21 09:55 | disposition short-term general hospital (02) | DRG 377 ==
LOC: ER 19:58 → MS 23:19 → ICU 03-20 09:30
PROVIDERS: Emergency Medicine; Registered Nurse; Admitting Provider Internal Medicine; Emergency Provider Internal Medicine; PCP Family Medicine; Visit Provider Internal Medicine
DX: K92.1 Melena (principal); I21.4 Non-ST elevation (NSTEMI) myocardial infarction; N30.01 Acute cystitis with hematuria; N17.9 Acute kidney failure, unspecified; N13.8 Other obstructive and reflux uropathy; Z16.29 Resistance to other single specified antibiotic; D63.8 Anemia in other chronic diseases classified elsewhere; I95.1 Orthostatic hypotension; E86.0 Dehydration; B96.20 Unspecified Escherichia coli [E. coli] as the cause of diseases classified elsewhere; I10 Essential (primary) hypertension; E11.9 Type 2 diabetes mellitus without complications; I25.10 Atherosclerotic heart disease of native coronary artery without angina pectoris; I65.23 Occlusion and stenosis of bilateral carotid arteries; N40.1 Benign prostatic hyperplasia with lower urinary tract symptoms; N31.8 Other neuromuscular dysfunction of bladder; E78.5 Hyperlipidemia, unspecified; R53.1 Weakness; F17.200 Nicotine dependence, unspecified, uncomplicated; I25.2 Old myocardial infarction; Z79.02 Long term (current) use of antithrombotics/antiplatelets; Z79.82 Long term (current) use of aspirin; Z79.899 Other long term (current) drug therapy; Z95.1 Presence of aortocoronary bypass graft; Z88.5 Allergy status to narcotic agent; Z88.0 Allergy status to penicillin; Z83.3 Family history of diabetes mellitus; Z82.49 Family history of ischemic heart disease and other diseases of the circulatory system
CPT/HCPCS: 36415; 74176; 80053; 81001; 82607; 82728; 82746; 83540; 83550; 83605; 84466; 84484; 85014; 85018; 85025; 85027; 85610; 85730; 86850; 86900; 86901; 87040; 87086; 87150; 87186; 87635; 87804; 93005; 96361; 96365; 96366; 96367; 96368; 96375; 96376; 97165; 97535; 99285; G0328; G0378; J0696; J1644

== ENCOUNTER 2023-04-03 16:35 | Outpatient (OUT) | payer BC, SELFPAY ==
--- OUTSIDE RECORDS SUMMARY | 2023-04-03 16:54 | XMS_ITS | CCD ---
Author Name Unknown Address [address] [place] [address] Organization [facility] Care Team Providers Care Customer Insight Analyst Name Role Phone PAOLANICK VARGAS Mika Unavailable Unavailable JUAN BHATIA Unavailable Unavailable JUAN BHATIA Admitting Unavailable JUAN BHATIA Attending Unavailable JUAN BHATIA Primary Care Unavailable JUAN BHATIA Consulting Unavailable JUAN BHATIA Admitting Unavailable JUAN BHATIA Attending Unavailable Jimmy Noe Unavailable MD Jimmy Noe Attending Provider MD Juan Bhatia Primary Care Provider Jimmy Noe Admitting UnavailJimmy Paz Attending Unavailabl e Juan Bhatia Primary Care Unavailable JUAN BHATIA Primary Care Unavailable SKY MYERS Referring Unavailable JUAN BHATIA Primary Care Unavailable JOSE SCHNEIDER Referring Unavailable JOSE SCHNEIDER Referring Unavailable JUAN BHATIA Primary Care Unavailable JOSE SCHNEIDER Referring Unavailable JUAN BHATIA Primary Care Unavailable JUAN BHATIA Primary Care Unavailable SKY MYERS Referring Unavailable HEMEJUAN WINTER Attending Unavailable SRINI GARCIA Referring Unavailable SRINI GARCIA Referring Unavailable SHADY, SARMED Referring Unavailable JIMÉNEZ, JOEY Referring Unavailable MERZA, NOORALDIN Referring Unavailable PIRKL, DON Referring Unavailable SHADY, SARMED Referring Unavailable SHADY, SARMED Referring Unavailable FAWWAD, LING Referring Unavailable SHADY, SARMED Attending Unavailable HORANI, LAZARA Admitting Unavailable ASSALY, RAGHEB Referring Unavailable ENMANUEL, TAPAN Referring Unavailable ENMANUEL, TAPAN Referring Unavailable ENMANUEL, TAPAN Referring Unavailable PIRKL, DON Referring Unavailable SRINI GARCIA Referring Unavailable Allergies Allergy Classification Reported Allergen(s) Allergy Type Date of Onset Reaction(s) Facility (3 sources) Morphine; Translations: [MORPHINE] Drug Allergy 03-21-2023 [facility] Repository (3 sources) Penicillins Drug allergy (disorder) 02-11-2015 Rash [facility] Repository (2 sources) Morphine Drug Allergy Unknown [facility] Other (3 sources) Penicillin; Translations: [PENICILLIN] Drug Allergy 03-21-2023 Unknown [facility] Repository (1 source) Penicillins Drug allergy (disorder) 12-22-2022 [facility] Repository Medications Current Medications Medication Drug Class(es) Dates Sig (Normalized) Sig (Original) Albuterol Sulfate 108 (90 Base) MCG/ACT (2 sources) take 1 puff(s) by inhalation every four hours as needed Albuterol Sulfate 108 (90 Base) MCG/ACT 1 puff as needed Inhalation every 4 hrs Active aspirin 81 mg oral tablet (2 sources) Platelet Aggregation Inhibitor, Nonsteroidal Anti-inflammatory Drug take 1 tablet by mouth once daily Aspirin 81 81 MG 1 tablet Orally Once a day Active clopidogrel 75 mg oral tablet (2 sources) P2Y12 Platelet Inhibitor Start: 11-29-2022 take 1 tablet by mouth every twenty-four hours Plavix 75 MG 1 tablet Orally Once a day for 90 day(s) Nov, Active ezetimibe 10 mg oral tablet (2 sources) Dietary Cholesterol Absorption Inhibitor take 1 tablet by mouth every twenty-four hours Ezetimibe 10 MG 1 tablet Orally Once a day Active fenofibrate 200 mg oral capsule (2 sources) Peroxisome Proliferator Receptor alpha Agonist take 1 capsule by mouth every twenty-four hours Fenofibrate 200 MG 1 capsule with a meal Orally Once a day Active Krill & Fish Oil Blend - (2 sources) Krill & Fish Oil Blend - as directed Orally Active metoprolol tartrate 50 mg oral tablet (2 sources) beta-Adrenergic Kalen take 1 capsule by mouth once daily Metoprolol Succinate 50 MG 1 capsule Orally Once a day Active Nitro Sublingual 0.4 0.4mg (2 sources) Nitro Sublingual 0.4 0.4mg 1 Sublingual Every 5min x3 Active oxybutynin (1 source) Cholinergic Muscarinic Antagonist oxyBUTYnin Active pantoprazole 20 mg delayed release oral tablet (2 sources) Proton Pump Inhibitor take 1 tablet by mouth every twenty-four hours Pantoprazole Sodium 20 MG 1 tablet Orally Once a day Active prasugrel (2 sources) P2Y12 Platelet Inhibitor Prasugrel Hcl 10 mg Take as directed Active semaglutide 14 mg oral tablet (2 sources) Rybelsus 14 MG 1 tablet at least 30 minutes before first food, beverage or other oral medicine of the day Orally Once a day Active tamsulosin hydrochloride 0.4 mg oral capsule (2 sources) alpha-Adrenergic Kalen take 1 capsule by mouth every twenty-four hours Tamsulosin HCl 0.4 MG 1 capsule Orally Once a day Active 12 hr timolol 5 mg/ml ophthalmic solution (2 sources) beta-Adrenergic Kalen take 1 drop(s) into the eye(s) once daily Timolol Maleate 0.5 % 1 drop into affected eye Ophthalmic Once a day Active valsartan 320 mg oral tablet (2 sources) Angiotensin 2 Receptor Kalen take 1 tablet by mouth every twenty-four hours Valsartan 320 MG 1 tablet Orally Once a day Active Problems Active Problems Problem Classification Problem Date Documented Da te Episodic/Chronic Acute myocardial infarction (2 sources) Non-ST elevation (NSTEMI) myocardial infarction; Translations: [Non-ST elevation (NSTEMI) myocardial infarction] Onset: 03-21-2023 Chronic Diabetes mellitus with complications (6 sources) Type 2 diabetes mellitus with other diabetic neurological complication; Translations: [Type 2 diabetes mellitus with diabetic neuropathy, unspecified] Onset: 12-14-2017 Essential hypertension (1 source) Essential (primary) hypertension; Translations: [ESSENTIAL PRIMARY HYPERTENSION] Onset: 12-20-2017 Chronic Genitourinary symptoms and ill-defined conditions (3 sources) Dysuria; Translations: [Frequency of micturition] Onset: 12-12-2022 Episodic Hyperplasia of prostate (1 source) Benign prostatic hyperplasia with lower urinary tract symptoms; Translations: [Benign prostatic hyperplasia with lower urinary tract symptoms] Onset: 02-03-2022 Chronic Occlusion or stenosis of precerebral arteries (9 sources) Bilateral stenosis of carotid arteries; Translations: [Occlusion and stenosis of bilateral carotid arteries] Chronic Other diseases of bladder and urethra (1 source) Bladder disorder, unspecified; Translations: [Bladder disorder, unspecified] Onset: 12-25-2022 Chronic Other screening for suspected conditions (not mental disorders or infectious disease) (1 source) Encounter for screening for malignant neoplasm of prostate; Translations: [Encounter for screening for malignant neoplasm of prostate] Onset: 12-15-2022 Episodic Phlebitis; thrombophlebitis and thromboembolism (2 sources) Acute embolism and thrombosis of unspecified deep veins of right proximal lower extremity; Translations: [Acute embolism and thrombosis of unspecified deep veins of right proximal lower extremity] Onset: 03-21-2023 Episodic Unclassified (1 source) Viral infection, unspecified / B34.9(ICD-10) Onset: 05-17-2017 Unclassified (1 source) Other cholelithiasis without obstruction / K80.80(ICD-10) Onset: 05-17-2017 Unclassified (1 source) Vomiting, unspecified / R11.10(ICD-10) Onset: 05-17-2017 Unclassified (1 source) Diarrhea, unspecified / R19.7(ICD-10) Onset: 05-17-2017 Unclassified (1 source) Occlusion and stenosis of bilateral carotid arteries; Translations: [Occlusion and stenosis of bilateral carotid arteries] Onset: 12-22-2022 Past or Other Problems Problem Classification Problem Date Documented Da te Episodic/Chronic Other diseases of kidney and ureters (1 source) Other obstructive and reflux uropathy; Translations: [Other obstructive and reflux uropathy] Onset: 02-03-2022 Episodic Urinary tract infections (1 source) Urinary tract infection, site not specified; Translations: [Urinary tract infection, site not specified] Onset: 02-03-2022 Episodic Results Test Name Value Interpretation Reference Range Facility 30on 03-31-2023 30 Normal [facility] 30 Normal [facility] 30 Normal [facility] BASIC METABOLIC PANELon 03-06 Anion gap [Moles/Vol] 10 mmol/L Normal 09-21 [facility] Comment on above: Performed By: #### L [id number] ####[facility] (BEAKER)[address] [place] [address] Calcium [Mass/Vol] 7.7 mg/dL Low 8.6-10.3 [facility] Comment on above: Performed By: #### L [id number] ####[facility] (BEAK[facility])[address] [place] [address] Chloride [Moles/Vol] 109 mmol/L High 98-107 [facility] Comment on above: Performed By: #### L [id number] ####[facility] [place] [address] CO2 [Moles/Vol] 21 mmol/L Normal 21-31 [facility] Comment on above: Performed By: #### L [id number] ####[facility] [place] [address] Creatinine [Mass/Vol] 0.64 mg/dL Low 0.70-1.30 [facility] Comment on above: Performed By: #### L [id number] ####[facility] ([facility])[address] [place] [address] GLOMERULAR FILTRATION RATE ML/MIN/1.73 SQ M.PREDICTED 104.4 mL/min/1.73m*2 Normal >60.0 [facility] Comment on above: Result Comment: The [facility]???s estimated glomerular filtration rate (eGFR) will no longer include consideration of race in its calculation. The National Kidney Foundation???s eGFR Task Force developed new recommendations for the estimation of the glomerular filtration rate in the [place] They recommend immediate implementation of the new equation refit without the race variable in all laboratories because the calculation does not include race. In addition to not including race in the calculation and reporting, it included diversity in its development, and has acceptable performance characteristics and potential consequences that do not disproportionately affect any one group of individuals. Performed By: #### L [id number] ####[facility] ([facility] [place] [address] Glucose [Mass/Vol] 65 mg/dL Low 70-100 [facility] Comment on above: Performed By: #### L [id number] ####[facility] ([facility] [place] [address] Potassium [Moles/Vol] 3.5 mmol/L Normal 3.5-5.1 [facility] Comment on above: Performed By: #### L [id number] ####[facility] ([facility]ER)[address] [place] [address] Sodium [Moles/Vol] 136 mmol/L Normal 136-145 [facility] Comment on above: Performed By: #### L [id number] ####[facility] (BE[facility]ER)[address] [place] [address] Urea nitrogen [Mass/Vol] 15 mg/dL Normal 7-25 [facility] Comment on above: Performed By: #### L [id number] ####[facility] (BEAKER)[address] [place] [address] UREA NITROGEN/CREATININE (MASS RATIO) IN SER/PLAS 23.4 Normal [facility] Comment on above: Performed By: #### L [id number] ####[facility] (BEAKER)[address] [place] [address] CBCon 03-31-2023 Erythrocyte distribution width (RBC) [Ratio] 16.5 % High 11.5-15.0 [facility] Comment on above: Performed By: #### L [id number] ####[facility] (BEAKER)[address] [place], [place] [address] ERYTHROCYTE MEAN CORPUSCULAR HEMOGLOBIN CONCENTRATION (G/DL) BY AUTOMATED 35.1 g/dL High 32.0-35.0 [facility] Comment on above: Performed By: #### L [id number] ####[facility] (BEAKER)[address] [place] [address] Hematocrit (Bld) [Volume fraction] 26.8 % Low 39.0-55.0 [facility] Comment on above: Performed By: #### L [id number] ####[facility] (BE[facility]ER)[address] [place], [place] [address] Hemoglobin (Bld) [Mass/Vol] 9.4 g/dL Low 13.0-17.0 [facility] Comment on above: Performed By: #### L [id number] ####[facility] (BEAKER)[address] [place] [address] MCH (RBC) [Entitic mass] 31.6 pg Normal 27.0-33.0 [facility] Comment on above: Performed By: #### L [id number] ####[facility] ([facility])[address] [place] [address] MCV (RBC) [Entitic vol] 90.2 fL Normal 82.0-98.0 [facility] Comment on above: Performed By: #### L [id number] ####[facility] ([facility])[address] [place] [address] PLATELETS (10*3/UL) IN BLOOD AUTOMATED COUNT 220 10*3/uL Normal 150-400 [facility] Comment on above: Performed By: #### L [id number] ####[facility] ([facility])[address] [place] [address] RBC (Bld) [#/Vol] 2.97 10*6/uL Low 4.20-5.70 [facility] Comment on above: Performed By: #### L [id number] ####[facility] ([facility])[address] [place] [address] WBC (Bld) [#/Vol] 6.07 10*3/uL Normal 4.00-10.60 [facility] Comment on above: Performed By: #### L [id number] ####[facility] ([facility])[place] [address] DSon 03-31-2023 DS Normal [facility] HEMOGLOBIN AND HEMATOCRIT, B LOODon 03-31-2023 Hematocrit (Bld) [Volume fraction] 28.7 % Low 39.0-55.0 [facility] Comment on above: Performed By: #### L [id number] ####[facility] ([facility] [place] [address] Hemoglobin (Bld) [Mass/Vol] 10.0 g/dL Low 13.0-17.0 [facility] Comment on above: Performed By: #### L [id number] ####[facility] ([facility] [place] [address] Hematocrit (Bld) [Volume fraction] 26.1 % Low 39.0-55.0 [facility] Comment on above: Performed By: #### L [id number] ####[facility] ([facility] [place] [address] Hemoglobin (Bld) [Mass/Vol] 9.1 g/dL Low 13.0-17.0 [facility] Comment on above: Performed By: #### L [id number] ####[facility] ([facility])[address] [place] [address] NURSNOTEon 03-31-2023 NURSNOTE Pt discharged home w ith family by car Normal [facility] POCT GLUCOSE METER UNSOLICIT ED RESULTSon 03-31-2023 Glucose [Mass/Vol] 167 mg/dL High 70-105 [facility] Comment on above: Order Comment: Waive d Testing in the ED is performed under the ED CLIA certificate #[id number]. Result Comment: [email or web address] Performed By: #### L [id number] ####[facility] ([facility])[address] [place] [address] Glucose [Mass/Vol] 79 mg/dL Normal 70-105 [facility] Comment on above: Order Comment: Waive d Testing in the ED is performed under the ED CLIA certificate #[id number]. Result Comment: [email or web address] Performed By: #### L [id number] ####[facility] ([facility])[address] [place] [address] Glucose [Mass/Vol] 84 mg/dL Normal 70-105 [facility] Comment on above: Order Comment: Waive d Testing in the ED is performed under the ED CLIA certificate #[id number]. Result Comment: [email or web address] Performed By: #### L [id number] ####[facility] ([facility] [place] [address] 30on 03-30-2023 30 Normal [facility] 30 Normal [facility] 30 Normal [facility] 30 Normal [facility] BASIC METABOLIC PANELon 03-06 Anion gap [Moles/Vol] 7 mmol/L Normal 7-20 [facility] Comment on above: Performed By: #### L [id number] ####[facility] ([facility] [place] [address] Calcium [Mass/Vol] 7.6 mg/dL Low 8.6-10.3 [facility] Comment on above: Performed By: #### L [id number] ####[facility] ([facility] [place] [address] Chloride [Moles/Vol] 111 mmol/L High 98-107 [facility] Comment on above: Performed By: #### L [id number] ####[facility] ([facility] [place] [address] CO2 [Moles/Vol] 23 mmol/L Normal 21-31 [facility] Comment on above: Performed By: #### L [id number] ####[facility] ([facility] [place] [address] Creatinine [Mass/Vol] 0.86 mg/dL Normal 0.70-1.30 [facility] Comment on above: Performed By: #### L [id number] ####[facility] ([facility] [place] [address] GLOMERULAR FILTRATION RATE ML/MIN/1.73 SQ M.PREDICTED 95.5 mL/min/1.73m*2 Normal >60.0 [facility] Comment on above: Result Comment: The [facility]???s estimated glomerular filtration rate (eGFR) will no longer include consideration of race in its calculation. The National Kidney Foundation???s eGFR Task Force developed new recommendations for the estimation of the glomerular filtration rate in the [place] They recommend immediate implementation of the new equation refit without the race variable in all laboratories because the calculation does not include race. In addition to not including race in the calculation and reporting, it included diversity in its development, and has acceptable performance characteristics and potential consequences that do not disproportionately affect any one group of individuals. Performed By: #### L [id number] ####[facility] ([facility])[address] [facility] [place] [address] Glucose [Mass/Vol] 69 mg/dL Low 70-100 [facility] Comment on above: Performed By: #### L [id number] ####[facility] ([facility])[address] [facility] [place] [address] Potassium [Moles/Vol] 3.4 mmol/L Low 3.5-5.1 [facility] Comment on above: Performed By: #### L [id number] ####[facility] ([facility])[address] [facility] [place] [place] [address] Sodium [Moles/Vol] 138 mmol/L Normal 136-145 [facility] Comment on above: Performed By: #### L [id number] ####[facility] ([facility])[address] [facility] [place] [place] [address] Urea nitrogen [Mass/Vol] 17 mg/dL Normal 7-25 [facility] Comment on above: Performed By: #### L [id number] ####[facility] ([facility])[address] [facility] [place] [address] UREA NITROGEN/CREATININE (MASS RATIO) IN SER/PLAS 19.8 Normal [facility] Comment on above: Performed By: #### L [id number] ####[facility] ([facility])[address] [facility] [address] CBCon 03-30-2023 Erythrocyte distribution width (RBC) [Ratio] 16.4 % High 11.5-15.0 [facility] Comment on above: Performed By: #### L [id number] ####[facility] ([facility])[address] [facility] [place] [address] ERYTHROCYTE MEAN CORPUSCULAR HEMOGLOBIN CONCENTRATION (G/DL) BY AUTOMATED 34.2 g/dL Normal 32.0-35.0 [facility] Comment on above: Performed By: #### L [id number] ####[facility] ([facility] [place] [address] Hematocrit (Bld) [Volume fraction] 23.1 % Low 39.0-55.0 [facility] Comment on above: Performed By: #### L [id number] ####[facility] ([facility])[address] [place] [address] Hemoglobin (Bld) [Mass/Vol] 7.9 g/dL Low 13.0-17.0 [facility] Comment on above: Performed By: #### L [id number] ####[facility] ([facility])[address] [place] [address] MCH (RBC) [Entitic mass] 31.0 pg Normal 27.0-33.0 [facility] Comment on above: Performed By: #### L [id number] ####[facility] ([facility])[address] [place] [address] MCV (RBC) [Entitic vol] 90.6 fL Normal 82.0-98.0 [facility] Comment on above: Performed By: #### L [id number] ####[facility] ([facility])[address] [place] [address] PLATELETS (10*3/UL) IN BLOOD AUTOMATED COUNT 218 10*3/uL Normal 150-400 [facility] Comment on above: Performed By: #### L [id number] ####[facility] ([facility])[address] [place] [address] RBC (Bld) [#/Vol] 2.55 10*6/uL Low 4.20-5.70 [facility] Comment on above: Performed By: #### L [id number] ####[facility] ([facility])[address] [place] [address] WBC (Bld) [#/Vol] 8.14 10*3/uL Normal 4.00-10.60 [facility] Comment on above: Performed By: #### L [id number] ####[facility] [place] [address] HEMOGLOBIN AND HEMATOCRIT, B LOODon 03-30-2023 Hematocrit (Bld) [Volume fraction] 26.5 % Low 39.0-55.0 [facility] Comment on above: Performed By: #### L [id number] ####[facility] ([facility])[address] [place] [address] Hemoglobin (Bld) [Mass/Vol] 9.4 g/dL Low 13.0-17.0 [facility] Comment on above: Performed By: #### L [id number] ####[facility] ([facility])[address] [place] [address] Hematocrit (Bld) [Volume fraction] 22.6 % Low 39.0-55.0 [facility] Comment on above: Performed By: #### L [id number] ####[facility] ([facility])[address] [place] [address] Hemoglobin (Bld) [Mass/Vol] 7.8 g/dL Low 13.0-17.0 [facility] Comment on above: Performed By: #### L [id number] ####[facility] ([facility])[address] [place] [address] POCT GLUCOSE METER UNSOLICIT ED RESULTSon 03-30-2023 Glucose [Mass/Vol] 92 mg/dL Normal 70-105 [facility] Comment on above: Order Comment: Waive d Testing in the ED is performed under the ED CLIA certificate #[id number]. Result Comment: [email or web address] Performed By: #### L [id number] ####[facility] ([facility])[address] [place] [address] Glucose [Mass/Vol] 90 mg/dL Normal 70-105 [facility] Comment on above: Order Comment: Waive d Testing in the ED is performed under the ED CLIA certificate #[id number]. Result Comment: [email or web address] Performed By: #### L [id number] ####[facility] ([facility])[address] [place] [address] Glucose [Mass/Vol] 108 mg/dL High 70-105 [facility] Comment on above: Order Comment: Waive d Testing in the ED is performed under the ED CLIA certificate #[id number]. Result Comment: [email or web address] Performed By: #### L [id number] ####[facility] ([facility])[address] [place] [address] Glucose [Mass/Vol] 77 mg/dL Normal 70-105 [facility] Comment on above: Order Comment: Waive d Testing in the ED is performed under the ED CLIA certificate #[id number]. Result Comment: [email or web address] Performed By: #### L [id number] ####[facility] ([facility])[address] [place] [address] Glucose [Mass/Vol] 78 mg/dL Normal 70-105 [facility] Comment on above: Order Comment: Waive d Testing in the ED is performed under the ED CLIA certificate #[id number]. Result Comment: [email or web address] Performed By: #### L [id number] ####[facility] ([facility])[address] [place] [address] 30on 03-29-2023 30 Normal [facility] 30 Normal [facility] 30 The patient is Moderately Stable - Low risk of patient condition declining or worsening The patient's goals for the shift include comfort The clinical goals for the shift include VSS Normal [facility] BASIC METABOLIC PANELon 03-06 Anion gap [Moles/Vol] 7 mmol/L Normal 7-20 [facility] Comment on above: Performed By: #### L [id number] ####[facility] ([facility])[address] [place] [address] Calcium [Mass/Vol] 7.6 mg/dL Low 8.6-10.3 [facility] Comment on above: Performed By: #### L [id number] ####[facility] ([facility])[address] [place] [address] Chloride [Moles/Vol] 110 mmol/L High 98-107 [facility] Comment on above: Performed By: #### L [id number] ####[facility] ([facility])[address] [place] [address] CO2 [Moles/Vol] 24 mmol/L Normal 21-31 [facility] Comment on above: Performed By: #### L [id number] ####[facility] ([facility])[address] [place] [address] Creatinine [Mass/Vol] 0.87 mg/dL Normal 0.70-1.30 [facility] Comment on above: Performed By: #### L [id number] ####[facility] ([facility])[address] [place] [address] GLOMERULAR FILTRATION RATE ML/MIN/1.73 SQ M.PREDICTED 95.2 mL/min/1.73m*2 Normal >60.0 [facility] Comment on above: Result Comment: The [facility]???s estimated glomerular filtration rate (eGFR) will no longer include consideration of race in its calculation. The National Kidney Foundation???s eGFR Task Force developed new recommendations for the estimation of the glomerular filtration rate in the [place] They recommend immediate implementation of the new equation refit without the race variable in all laboratories because the calculation does not include race. In addition to not including race in the calculation and reporting, it included diversity in its development, and has acceptable performance characteristics and potential consequences that do not disproportionately affect any one group of individuals. Performed By: #### L [id number] ####[facility] ([facility] [place] [address] Glucose [Mass/Vol] 83 mg/dL Normal 70-100 [facility] Comment on above: Performed By: #### L [id number] ####[facility] ([facility] [place] [address] Potassium [Moles/Vol] 3.5 mmol/L Normal 3.5-5.1 [facility] Comment on above: Performed By: #### L [id number] ####[facility] ([facility])[address] [place] [address] Sodium [Moles/Vol] 137 mmol/L Normal 136-145 [facility] Comment on above: Performed By: #### L [id number] ####[facility] ([facility])[address] [place] [address] Urea nitrogen [Mass/Vol] 15 mg/dL Normal 7-25 [facility] Comment on above: Performed By: #### L [id number] ####[facility] ([facility] [place] [address] UREA NITROGEN/CREATININE (MASS RATIO) IN SER/PLAS 17.2 Normal [facility] Comment on above: Performed By: #### L [id number] ####[facility] ([facility] [place] [address] CBCon 03-29-2023 Erythrocyte distribution width (RBC) [Ratio] 16.1 % High 11.5-15.0 [facility] Comment on above: Performed By: #### L [id number] ####[facility] ([facility])[address] [place] [address] ERYTHROCYTE MEAN CORPUSCULAR HEMOGLOBIN CONCENTRATION (G/DL) BY AUTOMATED 34.0 g/dL Normal 32.0-35.0 [facility] Comment on above: Performed By: #### L [id number] ####[facility] ([facility], [place] [address] Hematocrit (Bld) [Volume fraction] 23.5 % Low 39.0-55.0 [facility] Comment on above: Performed By: #### L [id number] ####[facility] ([facility])[address], [place] [address] Hemoglobin (Bld) [Mass/Vol] 8.0 g/dL Low 13.0-17.0 [facility] Comment on above: Performed By: #### L [id number] ####[facility] ([facility])[address], [place] [address] MCH (RBC) [Entitic mass] 30.4 pg Normal 27.0-33.0 [facility] Comment on above: Performed By: #### L [id number] ####[facility] ([facility])[address] [place] [address] MCV (RBC) [Entitic vol] 89.4 fL Normal 82.0-98.0 [facility] Comment on above: Performed By: #### L [id number] ####[facility] ([facility])[address] [place] [address] PLATELETS (10*3/UL) IN BLOOD AUTOMATED COUNT 237 10*3/uL Normal 150-400 [facility] Comment on above: Performed By: #### L [id number] ####[facility] ([facility])[address] [place] [address] RBC (Bld) [#/Vol] 2.63 10*6/uL Low 4.20-5.70 [facility] Comment on above: Performed By: #### L [id number] ####[facility] ([facility])[address] [place] [address] WBC (Bld) [#/Vol] 6.44 10*3/uL Normal 4.00-10.60 [facility] Comment on above: Performed By: #### L [id number] ####[facility] ([facility])[address] [place] [address] CONSULTon 03-29-2023 CONSULT Normal [facility] HEMOGLOBIN AND HEMATOCRIT, B LOODon 03-29-2023 Hematocrit (Bld) [Volume fraction] 23.7 % Low 39.0-55.0 [facility] Comment on above: Performed By: #### L [id number] ####[facility] ([facility])[address] [place] [address] Hemoglobin (Bld) [Mass/Vol] 8.1 g/dL Low 13.0-17.0 [facility] Comment on above: Performed By: #### L [id number] ####[facility] ([facility])[address] [place] [address] Hematocrit (Bld) [Volume fraction] 24.1 % Low 39.0-55.0 [facility] Comment on above: Performed By: #### L [id number] ####[facility] ([facility])[address] [place] [address] Hemoglobin (Bld) [Mass/Vol] 8.2 g/dL Low 13.0-17.0 [facility] Comment on above: Performed By: #### L [id number] ####[facility] ([facility])[address] [place] [address] Hematocrit (Bld) [Volume fraction] 24.2 % Low 39.0-55.0 [facility] Comment on above: Performed By: #### L [id number] ####[facility] ([facility])[address] [place] [address] Hemoglobin (Bld) [Mass/Vol] 8.5 g/dL Low 13.0-17.0 [facility] Comment on above: Performed By: #### L [id number] ####[facility] ([facility])[address] [place] [address] POCT GLUCOSE METER UNSOLICIT ED RESULTSon 03-29-2023 Glucose [Mass/Vol] 114 mg/dL High 70-105 [facility] Comment on above: Order Comment: Waive d Testing in the ED is performed under the ED CLIA certificate #[id number]. Result Comment: [email or web address] Performed By: #### L [id number] ####[facility] ([facility])[address] [place] [address] Glucose [Mass/Vol] 107 mg/dL High 70-105 [facility] Comment on above: Order Comment: Waive d Testing in the ED is performed under the ED CLIA certificate #[id number]. Result Comment: [email or web address] Performed By: #### L [id number] ####[facility] ([facility])[address] [place] [address] Glucose [Mass/Vol] 96 mg/dL Normal 70-105 [facility] Comment on above: Order Comment: Waive d Testing in the ED is performed under the ED CLIA certificate #[id number]. Result Comment: [email or web address] Performed By: #### L [id number] ####[facility] ([facility])[address] [facility] [place] [address] Glucose [Mass/Vol] 109 mg/dL High 70-105 [facility] Comment on above: Order Comment: Waive d Testing in the ED is performed under the ED CLIA certificate #[id number]. Result Comment: [email or web address] Performed By: #### L [id number] ####[facility] ([facility])[address] [facility] [place] [address] 30on 03-28-2023 30 Normal [facility] 30 [facility] 30 [facility] ANESon 03-28-2023 ANES [facility] ANTI-XA (HEPARIN LEVEL)on HEPARIN UNFRACTIONATED (U/ML) IN PPP BY CHROMOGENIC METHOD 0.77 IU/mL High 0.3-0.7 [facility] Comment on above: Result Comment: [place] roxaban and Apixaban will interfere with the anti Xa assay used to monitor UFH and LMWH. Performed By: #### L [id number] ####[facility] ([facility])[address] [facility] [place] [address] BASIC METABOLIC PANELon 03-06 Anion gap [Moles/Vol] 10 mmol/L Normal 7-20 [facility] Comment on above: Performed By: #### L [id number] ####[facility] ([facility])[address] [facility] [place] [address] Calcium [Mass/Vol] 7.9 mg/dL Low 8.6-10.3 [facility] Comment on above: Performed By: #### L [id number] ####[facility] ([facility])[address] [facility] [place] [address] Chloride [Moles/Vol] 106 mmol/L Normal 98-107 [facility] Comment on above: Performed By: #### L [id number] ####[facility] ([facility] [place] [address] CO2 [Moles/Vol] 23 mmol/L Normal 21-31 [facility] Comment on above: Performed By: #### L [id number] ####[facility] ([facility])[address] [place] [address] Creatinine [Mass/Vol] 0.62 mg/dL Low 0.70-1.30 [facility] Comment on above: Performed By: #### L [id number] ####[facility] ([facility])[address] [place] [address] GLOMERULAR FILTRATION RATE ML/MIN/1.73 SQ M.PREDICTED 105.4 mL/min/1.73m*2 Normal >60.0 [facility] Comment on above: Result Comment: The [facility]???s estimated glomerular filtration rate (eGFR) will no longer include consideration of race in its calculation. The National Kidney Foundation???s eGFR Task Force developed new recommendations for the estimation of the glomerular filtration rate in the [place] They recommend immediate implementation of the new equation refit without the race variable in all laboratories because the calculation does not include race. In addition to not including race in the calculation and reporting, it included diversity in its development, and has acceptable performance characteristics and potential consequences that do not disproportionately affect any one group of individuals. Performed By: #### L [id number] ####[facility] ([facility] [place] [address] Glucose [Mass/Vol] 109 mg/dL High 70-100 [facility] Comment on above: Performed By: #### L [id number] ####[facility] ([facility] [place] [address] Potassium [Moles/Vol] 3.5 mmol/L Normal 3.5-5.1 [facility] Comment on above: Performed By: #### L [id number] ####[facility] ([facility] [place] [address] Sodium [Moles/Vol] 135 mmol/L Low 136-145 [facility] Comment on above: Performed By: #### L [id number] ####[facility] ([facility])[address] [place] [address] Urea nitrogen [Mass/Vol] 8 mg/dL Normal 7-25 [facility] Comment on above: Performed By: #### L [id number] ####[facility] ([facility])[address] [place] [address] UREA NITROGEN/CREATININE (MASS RATIO) IN SER/PLAS 12.9 Normal [facility] Comment on above: Performed By: #### L [id number] ####[facility] ([facility])[address] [place] [address] CBCon 03-28-2023 Erythrocyte distribution width (RBC) [Ratio] 15.9 % High 11.5-15.0 [facility] Comment on above: Performed By: #### L [id number] ####[facility] ([facility])[address] [place] [address] ERYTHROCYTE MEAN CORPUSCULAR HEMOGLOBIN CONCENTRATION (G/DL) BY AUTOMATED 35.6 g/dL High 32.0-35.0 [facility] Comment on above: Performed By: #### L [id number] ####[facility] ([facility])[address] [place] [address] Hematocrit (Bld) [Volume fraction] 27.8 % Low 39.0-55.0 [facility] Comment on above: Performed By: #### L [id number] ####[facility] ([facility])[address] [place] [address] Hemoglobin (Bld) [Mass/Vol] 9.9 g/dL Low 13.0-17.0 [facility] Comment on above: Performed By: #### L [id number] ####[facility] ([facility])[address] [place] [address] MCH (RBC) [Entitic mass] 30.4 pg Normal 27.0-33.0 [facility] Comment on above: Performed By: #### L [id number] ####[facility] ([facility])[address] [place] [address] MCV (RBC) [Entitic vol] 85.3 fL Normal 82.0-98.0 [facility] Comment on above: Performed By: #### L [id number] ####[facility] ([facility])[address] [place] [address] PLATELETS (10*3/UL) IN BLOOD AUTOMATED COUNT 315 10*3/uL Normal 150-400 [facility] Comment on above: Performed By: #### L [id number] ####[facility] ([facility])[address] [place] [address] RBC (Bld) [#/Vol] 3.26 10*6/uL Low 4.20-5.70 [facility] Comment on above: Performed By: #### L [id number] ####[facility] ([facility])[address] [place] [address] WBC (Bld) [#/Vol] 8.93 10*3/uL Normal 4.00-10.60 [facility] Comment on above: Performed By: #### L [id number] ####[facility] ([facility] [place] [address] CT ABDOMEN PELVIS WO IV CONT RASTon 03-28-2023 CT ABDOMEN PELVIS WO IV CONTRAST Normal [facility] CTA ABDOMEN PELVIS W AND/OR WO IV CONTRASTon 03-28-2023 CTA ABDOMEN PELVIS W AND/OR WO IV CONTRAST Normal [facility] HEMOGLOBINon 03-28-2023 Hemoglobin (Bld) [Mass/Vol] 7.4 g/dL Low 13.0-17.0 [facility] Comment on above: Performed By: #### L [id number] ####[facility] ([facility] [place] [address] HEMOGLOBIN AND HEMATOCRIT, B LOODon 03-28-2023 Hematocrit (Bld) [Volume fraction] 22.4 % Low 39.0-55.0 [facility] Comment on above: Performed By: #### L [id number] ####[facility] ([facility])[address] [place] [address] Hemoglobin (Bld) [Mass/Vol] 7.7 g/dL Low 13.0-17.0 [facility] Comment on above: Performed By: #### L [id number] ####[facility] ([facility])[address] [place] [address] Hematocrit (Bld) [Volume fraction] 26.3 % Low 39.0-55.0 [facility] Comment on above: Performed By: #### L [id number] ####[facility] ([facility])[address] [facility] [place] [address] Hemoglobin (Bld) [Mass/Vol] 9.2 g/dL Low 13.0-17.0 [facility] Comment on above: Performed By: #### L [id number] ####[facility] ([facility])[address] [place] [address] NURSNOTEon 03-28-2023 NURSNOTE Notified primary pt is still hypotensive, 1u PRBC ordered. Pt has had minimal output today- 100ml. Pt has been receiving NS at 75ml going and a 500ml bolus earlier today. Normal [facility] NURSNOTE BP 86/51, 90/41 Pt has been resting comfortably with eyes closed since pain medication was given. Pt is arousable and oriented. Notified Primary, 500ml bolus and hbg lab ordered. Normal [facility] NURSNOTE Normal [facility] OPNOTEon 03-28-2023 OPNOTE Normal [facility] POCT GLUCOSE METER UNSOLICIT ED RESULTSon 03-28-2023 Glucose [Mass/Vol] 112 mg/dL High 70-105 [facility] Comment on above: Order Comment: Waive d Testing in the ED is performed under the ED CLIA certificate #[id number]. Result Comment: [email or web address] Performed By: #### L [id number] ####[facility] ([facility] [facility] [place] [address] Glucose [Mass/Vol] 136 mg/dL High 70-105 [facility] Comment on above: Order Comment: Waive d Testing in the ED is performed under the ED CLIA certificate #[id number]. Result Comment: [email or web address] mon Performed By: #### L [id number] ####[facility] ([facility] [facility] [place] [address] Glucose [Mass/Vol] 124 mg/dL High 70-105 [facility] Comment on above: Order Comment: Waive d Testing in the ED is performed under the ED CLIA certificate #[id number]. Result Comment: [email or web address] padron Performed By: #### L [id number] ####[facility] ([facility])[address] [place] [address] Glucose [Mass/Vol] 100 mg/dL Normal 70-105 [facility] Comment on above: Order Comment: Waive d Testing in the ED is performed under the ED CLIA certificate #[id number]. Result Comment: caitlin padron Performed By: #### L [id number] ####[facility] ([facility])[address] [facility] [place] [address] TYPE AND SCREENon 03-28-2023 AB SCREEN Negative Normal [facility] Comment on above: Performed By: #### L [id number] ####[facility], ABO group Nom (Bld) B Normal [facility] Comment on above: Performed By: #### L [id number] ####[facility], RH TYPE IN BLOOD Positive Normal [facility] Comment on above: Performed By: #### L [id number] ####[facility], 30on 03-27-2023 30 Normal [facility] 30 Normal [facility] 30 Normal [facility] ANTI-XA (HEPARIN LEVEL)on HEPARIN UNFRACTIONATED (U/ML) IN PPP BY CHROMOGENIC METHOD 0.66 IU/mL Normal 0.3-0.7 [facility] Comment on above: Result Comment: [place] roxaban and Apixaban will interfere with the anti Xa assay used to monitor UFH and LMWH. Performed By: #### L [id number] ####[facility] ([facility])[address] [place] [address] HEPARIN UNFRACTIONATED (U/ML) IN PPP BY CHROMOGENIC METHOD 0.57 IU/mL Normal 0.3-0.7 [facility] Comment on above: Order Comment: Check anti-Xa level every 6 hours while on heparin infusion, or per protocol. Result Comment: [place] roxaban and Apixaban will interfere with the anti Xa assay used to monitor UFH and LMWH. Performed By: #### L [id number] ####[facility] ([facility])[address] [place] [address] CBCon 03-27-2023 Erythrocyte distribution width (RBC) [Ratio] 16.0 % High 11.5-15.0 [facility] Comment on above: Performed By: #### L [id number] ####[facility] ([facility])[address] [place] [address] ERYTHROCYTE MEAN CORPUSCULAR HEMOGLOBIN CONCENTRATION (G/DL) BY AUTOMATED 35.6 g/dL High 32.0-35.0 [facility] Comment on above: Performed By: #### L [id number] ####[facility] ([facility])[address] [facility] [place] [address] Hematocrit (Bld) [Volume fraction] 28.1 % Low 39.0-55.0 [facility] Comment on above: Performed By: #### L [id number] ####[facility] ([facility])[address] [place] [address] Hemoglobin (Bld) [Mass/Vol] 10.0 g/dL Low 13.0-17.0 [facility] Comment on above: Performed By: #### L [id number] ####[facility] ([facility] [facility] [place] [address] MCH (RBC) [Entitic mass] 30.3 pg Normal 27.0-33.0 [facility] Comment on above: Performed By: #### L [id number] ####[facility] ([facility])[address] [place] [address] MCV (RBC) [Entitic vol] 85.2 fL Normal 82.0-98.0 [facility] Comment on above: Performed By: #### L [id number] ####[facility] ([facility])[address] [place] [address] PLATELETS (10*3/UL) IN BLOOD AUTOMATED COUNT 230 10*3/uL Normal 150-400 [facility] Comment on above: Performed By: #### L [id number] ####[facility] ([facility])[address] [place] [address] RBC (Bld) [#/Vol] 3.30 10*6/uL Low 4.20-5.70 [facility] Comment on above: Performed By: #### L [id number] ####[facility] ([facility])[address] [place] [address] WBC (Bld) [#/Vol] 7.99 10*3/uL Normal 4.00-10.60 [facility] Comment on above: Performed By: #### L [id number] ####[facility] ([facility])[address] [place] [address] HEMOGLOBIN AND HEMATOCRIT, B LOODon 03-27-2023 Hematocrit (Bld) [Volume fraction] 31.6 % Low 39.0-55.0 [facility] Comment on above: Performed By: #### L [id number] ####[facility] ([facility])[address] [place] [address] Hemoglobin (Bld) [Mass/Vol] 11.5 g/dL Low 13.0-17.0 [facility] Comment on above: Performed By: #### L [id number] ####[facility] ([facility])[address] [place] [address] NURSNOTEon 03-27-2023 NURSNOTE Per Primary MD: No strenuous exercising (like stairs), 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 Normal [facility] POCT GLUCOSE METER UNSOLICIT ED RESULTSon 03-27-2023 Glucose [Mass/Vol] 88 mg/dL Normal 70-105 [facility] Comment on above: Order Comment: Waive d Testing in the ED is performed under the ED CLIA certificate #[id number]. Result Comment: [email or web address] Performed By: #### L [id number] ####[facility] ([facility])[address] [place] [address] Glucose [Mass/Vol] 99 mg/dL Normal 70-105 [facility] Comment on above: Order Comment: Waive d Testing in the ED is performed under the ED CLIA certificate #[id number]. Result Comment: [email or web address] Performed By: #### L [id number] ####[facility] ([facility])[address] [place] [address] Glucose [Mass/Vol] 105 mg/dL Normal 70-105 [facility] Comment on above: Order Comment: Waive d Testing in the ED is performed under the ED CLIA certificate #[id number]. Result Comment: [email or web address] Performed By: #### L [id number] ####[facility] ([facility])[address] [place] [address] Glucose [Mass/Vol] 72 mg/dL Normal 70-105 [facility] Comment on above: Order Comment: Waive d Testing in the ED is performed under the ED CLIA certificate #[id number]. Result Comment: [email or web address] Performed By: #### L [id number] ####[facility] ([facility])[address] [place] [address] Glucose [Mass/Vol] 77 mg/dL Normal 70-105 [facility] Comment on above: Order Comment: Waive d Testing in the ED is performed under the ED CLIA certificate #[id number]. Result Comment: [email or web address] Performed By: #### L [id number] ####[facility] ([facility])[address] [place] [address] TROPONIN Ion 03-27-2023 Troponin I.cardiac [Mass/Vol] 0.16 ng/mL Critically high 0.00-0.04 [facility] Comment on above: Result Comment: M-AK EVIOUS CRITICAL RESULTPrevious result verified on 03/27/2023 0123 on specimen/case [id number] called with component Troponin I for procedure Troponin I with value 0.16 ng/mL. Performed By: #### L [id number] ####[facility] ([facility])[address] [place] [address] Troponin I.cardiac [Mass/Vol] 0.16 ng/mL Critically high 0.00-0.04 [facility] Comment on above: Result Comment: M-AK EVIOUS CRITICAL RESULT Performed By: #### L [id number] ####[facility] H[facility])[address] [place] [address] 30on 03-26-2023 30 Normal [facility] ANTI-XA (HEPARIN LEVEL)on HEPARIN UNFRACTIONATED (U/ML) IN PPP BY CHROMOGENIC METHOD 0.22 IU/mL Low 0.3-0.7 [facility] Comment on above: Order Comment: Check anti-Xa level every 6 hours while on heparin infusion, or per protocol. Result Comment: [place] roxaban and Apixaban will interfere with the anti Xa assay used to monitor UFH and LMWH. Performed By: #### L [id number] ####[facility] ([facility])[address] [place] [address] APTTon 03-26-2023 ACTIVATED PARTIAL THROMBOPLASTIN TIME IN PPP BY COAGULATION ASSAY 34.7 Seconds Normal 25.0-35.0 [facility] Comment on above: Order Comment: Basel ine aPTT before initiating heparin infusion. Result Comment: Clin ical significance of the APTT is questionable in the presence of heparin. Performed By: #### L [id number] ####[facility] ([facility])[address] [place] [address] CBCon 03-26-2023 Erythrocyte distribution width (RBC) [Ratio] 16.6 % High 11.5-15.0 [facility] Comment on above: Performed By: #### L [id number] ####[facility] [place] [address] ERYTHROCYTE MEAN CORPUSCULAR HEMOGLOBIN CONCENTRATION (G/DL) BY AUTOMATED 34.5 g/dL Normal 32.0-35.0 [facility] Comment on above: Performed By: #### L [id number] ####[facility] ([facility])[address] [place] [address] Hematocrit (Bld) [Volume fraction] 22.9 % Low 39.0-55.0 [facility] Comment on above: Performed By: #### L [id number] ####[facility] [place] [address] Hemoglobin (Bld) [Mass/Vol] 7.9 g/dL Low 13.0-17.0 [facility] Comment on above: Performed By: #### L [id number] ####[facility] [place] [address] MCH (RBC) [Entitic mass] 29.9 pg Normal 27.0-33.0 [facility] Comment on above: Performed By: #### L [id number] ####[facility] [place] [address] MCV (RBC) [Entitic vol] 86.7 fL Normal 82.0-98.0 [facility] Comment on above: Performed By: #### L [id number] ####[facility] [place] [address] PLATELETS (10*3/UL) IN BLOOD AUTOMATED COUNT 223 10*3/uL Normal 150-400 [facility] Comment on above: Performed By: #### L [id number] ####[facility] ([facility])[address] [place] [address] RBC (Bld) [#/Vol] 2.64 10*6/uL Low 4.20-5.70 [facility] Comment on above: Performed By: #### L [id number] ####[facility] ([facility])[address] [place] [address] WBC (Bld) [#/Vol] 8.79 10*3/uL Normal 4.00-10.60 [facility] Comment on above: Performed By: #### L [id number] ####[facility] ([facility])[address] [place] [address] CTA ABDOMEN PELVIS W AND/OR WO IV CONTRASTon 03-26-2023 CTA ABDOMEN PELVIS W AND/OR WO IV CONTRAST Normal [facility] ENTERIC BACTERIAL DNA PANELo n 03-26-2023 CAMPYLOBACTER SPECIES Negative Normal Negative [facility] Comment on above: Order Comment: Testi ng methodology is an automated in vitro diagnostic test for the direct qualitative detection and differentiation of nucleic acids from enteric bacterial pathogens utilizing real-time polymerase chain reaction (PCR) for the amplification of relevant gene target DNA. The test utilizes fluorogenic gene-specific hybridization probes for the detection of the amplified DNA. Performed By: #### L [id number] ####[facility] ([facility])[address] [place] [address] ENTEROTOXIGENIC E. COLI (ETEC) LT/ST Negative Normal Negative [facility] Comment on above: Order Comment: Testi ng methodology is an automated in vitro diagnostic test for the direct qualitative detection and differentiation of nucleic acids from enteric bacterial pathogens utilizing real-time polymerase chain reaction (PCR) for the amplification of relevant gene target DNA. The test utilizes fluorogenic gene-specific hybridization probes for the detection of the amplified DNA. Performed By: #### L [id number] ####[facility] ([facility])[address] [place] [address] PLESIOMONAS SHIGELLOIDES Negative Normal Negative [facility] Comment on above: Order Comment: Testi ng methodology is an automated in vitro diagnostic test for the direct qualitative detection and differentiation of nucleic acids from enteric bacterial pathogens utilizing real-time polymerase chain reaction (PCR) for the amplification of relevant gene target DNA. The test utilizes fluorogenic gene-specific hybridization probes for the detection of the amplified DNA. Performed By: #### L [id number] ####[facility] ([facility] [place] [address] SALMONELLA SPECIES Negative Normal Negative [facility] Comment on above: Order Comment: Testi ng methodology is an automated in vitro diagnostic test for the direct qualitative detection and differentiation of nucleic acids from enteric bacterial pathogens utilizing real-time polymerase chain reaction (PCR) for the amplification of relevant gene target DNA. The test utilizes fluorogenic gene-specific hybridization probes for the detection of the amplified DNA. Performed By: #### L [id number] ####[facility] ([facility])[address] [place] [address] SHIGA-LIKE TOXIN-PRODUCING E. COLI (STEC) STX1/STX2 Negative Normal Negative [facility] Comment on above: Order Comment: Testi ng methodology is an automated in vitro diagnostic test for the direct qualitative detection and differentiation of nucleic acids from enteric bacterial pathogens utilizing real-time polymerase chain reaction (PCR) for the amplification of relevant gene target DNA. The test utilizes fluorogenic gene-specific hybridization probes for the detection of the amplified DNA. Performed By: #### L [id number] ####[facility] ([facility])[address] [place] [address] SHIGELLA SPECIES Negative Normal Negative [facility] Comment on above: Order Comment: Testi ng methodology is an automated in vitro diagnostic test for the direct qualitative detection and differentiation of nucleic acids from enteric bacterial pathogens utilizing real-time polymerase chain reaction (PCR) for the amplification of relevant gene target DNA. The test utilizes fluorogenic gene-specific hybridization probes for the detection of the amplified DNA. Performed By: #### L [id number] ####[facility] ([facility])[address] [place] [address] VIBRIO SPECIES Negative Normal Negative [facility] Comment on above: Order Comment: Testi ng methodology is an automated in vitro diagnostic test for the direct qualitative detection and differentiation of nucleic acids from enteric bacterial pathogens utilizing real-time polymerase chain reaction (PCR) for the amplification of relevant gene target DNA. The test utilizes fluorogenic gene-specific hybridization probes for the detection of the amplified DNA. Performed By: #### L [id number] ####[facility] ([facility])[address] [facility] [place] [address] YERSINIA ENTEROCOLITICA Negative Normal Negative [facility] Comment on above: Order Comment: Lakisha hernandes methodology is an automated in vitro diagnostic test for the direct qualitative detection and differentiation of nucleic acids from enteric bacterial pathogens utilizing real-time polymerase chain reaction (PCR) for the amplification of relevant gene target DNA. The test utilizes fluorogenic gene-specific hybridization probes for the detection of the amplified DNA. Performed By: #### L [id number] ####[facility] ([facility])[address] [facility] [place] [address] FECAL LEUKOCYTESon LEUKOCYTES PRESENCE IN STOOL BY LIGHT MICROSCOPY None Seen Normal None Seen, Few, Moderate [facility] Comment on above: Performed By: #### L [id number] ####[facility] ([facility])[address] [facility] [place] [address] YEAST PRESENCE IN STOOL BY LIGHT MICROSCOPY Few Normal None Seen, Few, Moderate [facility] Comment on above: Performed By: #### L [id number] ####[facility] ([facility])[address] [facility] [place] [address] HEMOGLOBIN AND HEMATOCRIT, B LOODon 03-26-2023 Hematocrit (Bld) [Volume fraction] 28.0 % Low 39.0-55.0 [facility] Comment on above: Performed By: #### L [id number] ####[facility] ([facility])[address] [place] [address] Hemoglobin (Bld) [Mass/Vol] 9.8 g/dL Low 13.0-17.0 [facility] Comment on above: Performed By: #### L [id number] ####[facility] ([facility])[address] [facility] [place] [address] NURSNOTEon 03-26-2023 NURSNOTE Notified Vascular th at ultrasound verified blood clot in R Common Femoral Normal [facility] NURSNOTE Normal [facility] PANCREATIC ELASTASE, FECALon 03-26-2023 PANCREATIC ELASTASE, FECAL >800 Normal >=100 [facility] Comment on above: Result Comment: REFE RENCE INTERVAL: Pancreatic Elastase Fecal by Immunoassay Less than 100 ug/g............Severe insufficiency 100 - 199 ug/g................Moderate insufficiency 200 ug/g or greater...........NormalINTERPRETIVE INFORMATION: Pancreatic Elastase Fecal by ImmunoassayReference intervals do not apply for infants less than one monthold.Performed By: [facility] [place], [place] [id number] Director: Mikael Espinosa MD, PhDCLIA Number: [id number] Performed By: #### L [id number] ####[facility] ([facility] [place] [address] PLATELET COUNTon 03-26-2023 PLATELETS (10*3/UL) IN BLOOD AUTOMATED COUNT 242 10*3/uL Normal 150-400 [facility] Comment on above: Performed By: #### L [id number] ####[facility] ([facility])[address] [place] [address] POCT GLUCOSE METER UNSOLICIT ED RESULTSon 03-26-2023 Glucose [Mass/Vol] 86 mg/dL Normal 70-105 [facility] Comment on above: Order Comment: Waive d Testing in the ED is performed under the ED CLIA certificate #[id number]. Result Comment: [email or web address] Performed By: #### L [id number] ####[facility] ([facility])[address] [facility] [place] [address] Glucose [Mass/Vol] 80 mg/dL Normal 70-105 [facility] Comment on above: Order Comment: Waive d Testing in the ED is performed under the ED CLIA certificate #[id number]. Result Comment: caitlin padron Performed By: #### L [id number] ####[facility] ([facility])[address] [facility] [place] [address] Glucose [Mass/Vol] 94 mg/dL Normal 70-105 [facility] Comment on above: Order Comment: Waive d Testing in the ED is performed under the ED CLIA certificate #[id number]. Result Comment: [email or web address] Performed By: #### L [id number] ####[facility] ([facility])[address] [place] [address] TROPONIN Ion 03-26-2023 Troponin I.cardiac [Mass/Vol] 0.14 ng/mL Critically high 0.00-0.04 [facility] Comment on above: Result Comment: Prev ious result verified on 03/26/2023205 on specimen/case [id number] called with component Troponin I for procedure Troponin I with value 0.18 ng/mL. Performed By: #### L [id number] ####[facility] ([facility])[address] [place] [address] Troponin I.cardiac [Mass/Vol] 0.31 ng/mL Critically high 0.00-0.04 [facility] Comment on above: Result Comment: Prev ious result verified on 03/26/2023205 on specimen/case [id number] called with component Troponin I for procedure Troponin I with value 0.18 ng/mL. Performed By: #### L [id number] ####[facility] ([facility])[address] [place] [address] Troponin I.cardiac [Mass/Vol] 0.14 ng/mL Critically high 0.00-0.04 [facility] Comment on above: Result Comment: Prev ious result verified on 03/26/2023205 on specimen/case [id number] called with component Troponin I for procedure Troponin I with value 0.18 ng/mL. Performed By: #### L [id number] ####[facility] ([facility])[address] [place] [address] Troponin I.cardiac [Mass/Vol] 0.13 ng/mL Critically high 0.00-0.04 [facility] Comment on above: Result Comment: M-AK EVIOUS CRITICAL RESULTPrevious result verified on 03/26/2023205 on specimen/case [id number] called with component Troponin I for procedure Troponin I with value 0.18 ng/mL. Performed By: #### L [id number] ####[facility] ([facility])[address] [place] [address] Troponin I.cardiac [Mass/Vol] 0.14 ng/mL Critically high 0.00-0.04 [facility] Comment on above: Result Comment: M-AK EVIOUS CRITICAL RESULTPrevious result verified on 03/26/2023 0206 on specimen/case [id number] called with component Troponin I for procedure Troponin I with value 0.18 ng/mL. Performed By: #### L [id number] ####[facility] ([facility])[address] [place] [address] Troponin I.cardiac [Mass/Vol] 0.16 ng/mL Critically high 0.00-0.04 [facility] Comment on above: Result Comment: M-AK EVIOUS CRITICAL RESULTPrevious result verified on 03/26/2023 0206 on specimen/case [id number] called with component Troponin I for procedure Troponin I with value 0.18 ng/mL. Performed By: #### L [id number] ####[facility] ([facility])[address] [place] [address] Troponin I.cardiac [Mass/Vol] 0.18 ng/mL Critically high 0.00-0.04 [facility] Comment on above: Result Comment: M-AK EVIOUS CRITICAL RESULTPrevious result verified on 03/25/20230 on specimen/case [id number] called with component Troponin I for procedure Troponin I with value 0.19 ng/mL. Performed By: #### L [id number] ####[facility] ([facility])[address] [place] [address] 30on 03-25-2023 30 The patient is Moderately Stable - Low risk of patient condition declining or worsening The patient's goals for the shift include comfort The clinical goals for the shift include safety Normal [facility] 30 Normal [facility] BASIC METABOLIC PANELon 03-06 Anion gap [Moles/Vol] 10 mmol/L Normal 7-20 [facility] Comment on above: Performed By: #### L [id number] ####[facility] ([facility])[address] [place] [address] Calcium [Mass/Vol] 7.6 mg/dL Low 8.6-10.3 [facility] Comment on above: Performed By: #### L [id number] ####[facility] ([facility])[address] [place] [address] Chloride [Moles/Vol] 111 mmol/L High 98-107 [facility] Comment on above: Performed By: #### L [id number] ####[facility] ([facility])[address] [place] [address] CO2 [Moles/Vol] 20 mmol/L Low 21-31 [facility] Comment on above: Performed By: #### L [id number] ####[facility] ([facility])[address] [place] [address] Creatinine [Mass/Vol] 1.24 mg/dL Normal 0.70-1.30 [facility] Comment on above: Performed By: #### L [id number] ####[facility] ([facility])[address] [place] [address] GLOMERULAR FILTRATION RATE ML/MIN/1.73 SQ M.PREDICTED 64.1 mL/min/1.73m*2 Normal >60.0 [facility] Comment on above: Result Comment: The [facility]???s estimated glomerular filtration rate (eGFR) will no longer include consideration of race in its calculation. The National Kid[employer] Foundation???s eGFR Task Force developed new recommendations for the estimation of the glomerular filtration rate in the [place] They recommend immediate implementation of the new equation refit without the race variable in all laboratories because the calculation does not include race. In addition to not including race in the calculation and reporting, it included diversity in its development, and has acceptable performance characteristics and potential consequences that do not disproportionately affect any one group of individuals. Performed By: #### L [id number] ####[facility] ([facility])[address] [place] [address] Glucose [Mass/Vol] 91 mg/dL Normal 70-100 [facility] Comment on above: Performed By: #### L [id number] ####[facility] ([facility])[address] [place] [address] Potassium [Moles/Vol] 3.8 mmol/L Normal 3.5-5.1 [facility] Comment on above: Performed By: #### L [id number] ####[facility] ([facility])[address] [place] [address] Sodium [Moles/Vol] 137 mmol/L Normal 136-145 [facility] Comment on above: Performed By: #### L [id number] ####[facility] ([facility])[address] [place] [address] Urea nitrogen [Mass/Vol] 23 mg/dL Normal 7-25 [facility] Comment on above: Performed By: #### L [id number] ####[facility] ([facility])[address] [place] [address] UREA NITROGEN/CREATININE (MASS RATIO) IN SER/PLAS 18.5 Normal [facility] Comment on above: Performed By: #### L [id number] ####[facility] ([facility])[address] [place] [address] CBCon 03-25-2023 Erythrocyte distribution width (RBC) [Ratio] 15.9 % High 11.5-15.0 [facility] Comment on above: Performed By: #### L [id number] ####[facility] ([facility])[address] [place] [address] ERYTHROCYTE MEAN CORPUSCULAR HEMOGLOBIN CONCENTRATION (G/DL) BY AUTOMATED 35.4 g/dL High 32.0-35.0 [facility] Comment on above: Performed By: #### L [id number] ####[facility] ([facility])[address] [place] [address] Hematocrit (Bld) [Volume fraction] 24.6 % Low 39.0-55.0 [facility] Comment on above: Performed By: #### L [id number] ####[facility] ([facility])[address] [place] [address] Hemoglobin (Bld) [Mass/Vol] 8.7 g/dL Low 13.0-17.0 [facility] Comment on above: Performed By: #### L [id number] ####[facility] [place] [address] MCH (RBC) [Entitic mass] 29.6 pg Normal 27.0-33.0 [facility] Comment on above: Performed By: #### L [id number] ####[facility] ([facility])[address] [place] [address] MCV (RBC) [Entitic vol] 83.7 fL Normal 82.0-98.0 [facility] Comment on above: Performed By: #### L [id number] ####[facility] ([facility])[address] [place] [address] PLATELETS (10*3/UL) IN BLOOD AUTOMATED COUNT 208 10*3/uL Normal 150-400 [facility] Comment on above: Performed By: #### L [id number] ####[facility] ([facility])[address] [place] [address] RBC (Bld) [#/Vol] 2.94 10*6/uL Low 4.20-5.70 [facility] Comment on above: Performed By: #### L [id number] ####[facility] ([facility])[address] [place] [address] WBC (Bld) [#/Vol] 6.91 10*3/uL Normal 4.00-10.60 [facility] Comment on above: Performed By: #### L [id number] ####[facility] ([facility])[address] [place], [place] [address] HEMOGLOBIN AND HEMATOCRIT, B LOODon 03-25-2023 Hematocrit (Bld) [Volume fraction] 24.8 % Low 39.0-55.0 [facility] Comment on above: Performed By: #### L [id number] ####[facility] ([facility])[address] [place] [address] Hemoglobin (Bld) [Mass/Vol] 8.7 g/dL Low 13.0-17.0 [facility] Comment on above: Performed By: #### L [id number] ####[facility] ([facility] [place] [address] Hematocrit (Bld) [Volume fraction] 26.5 % Low 39.0-55.0 [facility] Comment on above: Performed By: #### L [id number] ####[facility] ([facility])[address] [place] [address] Hemoglobin (Bld) [Mass/Vol] 9.3 g/dL Low 13.0-17.0 [facility] Comment on above: Performed By: #### L [id number] ####[facility] ([facility] [place] [address] Hematocrit (Bld) [Volume fraction] 25.0 % Low 39.0-55.0 [facility] Comment on above: Performed By: #### L [id number] ####[facility] ([facility])[address] [place] [address] Hemoglobin (Bld) [Mass/Vol] 8.8 g/dL Low 13.0-17.0 [facility] Comment on above: Performed By: #### L [id number] ####[facility] ([facility])[address] [place] [address] NURSNOTEon 03-25-2023 NURSNOTE Normal [facility] POCT GLUCOSE METER UNSOLICIT ED RESULTSon 03-25-2023 Glucose [Mass/Vol] 93 mg/dL Normal 70-105 [facility] Comment on above: Order Comment: Waive d Testing in the ED is performed under the ED CLIA certificate #[id number]. Result Comment: [email or web address] Performed By: #### L [id number] ####[facility] ([facility] [place] [address] Glucose [Mass/Vol] 109 mg/dL High 70-105 [facility] Comment on above: Order Comment: Waive d Testing in the ED is performed under the ED CLIA certificate #[id number]. Result Comment: [email or web address] Performed By: #### L [id number] ####[facility] ([facility])[address] [facility] [place] [address] Glucose [Mass/Vol] 106 mg/dL High 70-105 [facility] Comment on above: Order Comment: Waive d Testing in the ED is performed under the ED CLIA certificate #[id number]. Result Comment: than [email or web address] Performed By: #### L [id number] ####[facility] ([facility])[address] [facility] [place] [address] TROPONIN Ion 03-25-2023 Troponin I.cardiac [Mass/Vol] 0.19 ng/mL Critically high 0.00-0.04 [facility] Comment on above: Result Comment: M-AK EVIOUS CRITICAL RESULTPrevious result verified on 03/25/2023 1947 on specimen/case [id number] called with component Troponin I for procedure Troponin I with value 0.22 ng/mL. Performed By: #### L [id number] ####[facility] ([facility])[address] [place] [address] Troponin I.cardiac [Mass/Vol] 0.22 ng/mL Critically high 0.00-0.04 [facility] Comment on above: Result Comment: Prev ious result verified on 03/25/2023 0909 on specimen/case [id number] called with component Troponin I for procedure Troponin I with value 0.25 ng/mL. Performed By: #### L [id number] ####[facility] ([facility])[address] [facility] [place] [address] Troponin I.cardiac [Mass/Vol] 0.24 ng/mL Critically high 0.00-0.04 [facility] Comment on above: Result Comment: Prev ious result verified on 03/25/2023 0909 on specimen/case [id number] called with component Troponin I for procedure Troponin I with value 0.25 ng/mL. Performed By: #### L [id number] ####[facility] ([facility])[address] [place] [address] Troponin I.cardiac [Mass/Vol] 0.25 ng/mL Critically high 0.00-0.04 [facility] Comment on above: Performed By: #### L [id number] ####[facility] ([facility])[address] [place] [address] Troponin I.cardiac [Mass/Vol] 0.33 ng/mL Critically high 0.00-0.04 [facility] Comment on above: Result Comment: Prev ious result verified on 03/24/2023 0806 on specimen/case [id number] called with component Troponin I for procedure Troponin I with value 0.28 ng/mL. Performed By: #### L [id number] ####[facility] ([facility])[address] [place] [address] Troponin I.cardiac [Mass/Vol] 0.28 ng/mL Critically high 0.00-0.04 [facility] Comment on above: Result Comment: Prev ious result verified on 03/24/2023 0806 on specimen/case [id number] called with component Troponin I for procedure Troponin I with value 0.28 ng/mL. Performed By: #### L [id number] ####[facility] ([facility])[address] [place] [address] 30on 03-24-2023 30 Normal [facility] 30 Normal [facility] ANTI-XA (HEPARIN LEVEL)on HEPARIN UNFRACTIONATED (U/ML) IN PPP BY CHROMOGENIC METHOD 0.37 IU/mL Normal 0.3-0.7 [facility] Comment on above: Order Comment: Check anti-Xa level every 6 hours while on heparin infusion, or per protocol. Result Comment: [place] roxaban and Apixaban will interfere with the anti Xa assay used to monitor UFH and LMWH. Performed By: #### L [id number] ####[facility] ([facility])[address] [place] [address] APTTon 03-24-2023 ACTIVATED PARTIAL THROMBOPLASTIN TIME IN PPP BY COAGULATION ASSAY 37.0 Seconds High 25.0-35.0 [facility] Comment on above: Result Comment: Clin ical significance of the APTT is questionable in the presence of heparin. Performed By: #### L [id number] ####[facility] ([facility])[address] [place] [address] BASIC METABOLIC PANELon 03-06 0 Anion gap [Moles/Vol] 9 mmol/L Normal 7-20 [facility] Comment on above: Performed By: #### L [id number] ####[facility] [place] [address] Calcium [Mass/Vol] 7.5 mg/dL Low 8.6-10.3 [facility] Comment on above: Performed By: #### L [id number] ####[facility] ([facility])[address] [place] [address] Chloride [Moles/Vol] 109 mmol/L High 98-107 [facility] Comment on above: Performed By: #### L [id number] ####[facility] [place] [address] CO2 [Moles/Vol] 21 mmol/L Normal 21-31 [facility] Comment on above: Performed By: #### L [id number] ####[facility] ([facility] [place] [address] Creatinine [Mass/Vol] 0.83 mg/dL Normal 0.70-1.30 [facility] Comment on above: Performed By: #### L [id number] ####[facility] ([facility])[address] [place] [address] GLOMERULAR FILTRATION RATE ML/MIN/1.73 SQ M.PREDICTED 96.5 mL/min/1.73m*2 Normal >60.0 [facility] Comment on above: Result Comment: The [facility]???s estimated glomerular filtration rate (eGFR) will no longer include consideration of race in its calculation. The National Kidney Foundation???s eGFR Task Force developed new recommendations for the estimation of the glomerular filtration rate in the [place] They recommend immediate implementation of the new equation refit without the race variable in all laboratories because the calculation does not include race. In addition to not including race in the calculation and reporting, it included diversity in its development, and has acceptable performance characteristics and potential consequences that do not disproportionately affect any one group of individuals. Performed By: #### L [id number] ####[facility] ([facility])[address] [place] [address] Glucose [Mass/Vol] 120 mg/dL High 70-100 [facility] Comment on above: Performed By: #### L [id number] ####[facility] ([facility])[address] [place] [address] Potassium [Moles/Vol] 3.7 mmol/L Normal 3.5-5.1 [facility] Comment on above: Performed By: #### L [id number] ####[facility] ([facility])[address] [facility] [place] [address] Sodium [Moles/Vol] 135 mmol/L Low 136-145 [facility] Comment on above: Performed By: #### L [id number] ####[facility] ([facility])[address] [place] [address] Urea nitrogen [Mass/Vol] 14 mg/dL Normal 7-25 [facility] Comment on above: Performed By: #### L [id number] ####[facility] ([facility])[address] [place] [address] UREA NITROGEN/CREATININE (MASS RATIO) IN SER/PLAS 16.9 Normal [facility] Comment on above: Performed By: #### L [id number] ####[facility] ([facility])[address] [place] [address] CBCon 03-24-2023 Erythrocyte distribution width (RBC) [Ratio] 15.7 % High 11.5-15.0 [facility] Comment on above: Performed By: #### L [id number] ####[facility] [facility] [place] [address] ERYTHROCYTE MEAN CORPUSCULAR HEMOGLOBIN CONCENTRATION (G/DL) BY AUTOMATED 33.5 g/dL Normal 32.0-35.0 [facility] Comment on above: Performed By: #### L [id number] ####[facility] ([facility])[address] [place] [address] Hematocrit (Bld) [Volume fraction] 20.6 % Low 39.0-55.0 [facility] Comment on above: Performed By: #### L [id number] ####[facility] ([facility] [place] [address] Hemoglobin (Bld) [Mass/Vol] 6.9 g/dL Low 13.0-17.0 [facility] Comment on above: Performed By: #### L [id number] ####[facility] ([facility] [place] [address] MCH (RBC) [Entitic mass] 30.0 pg Normal 27.0-33.0 [facility] Comment on above: Performed By: #### L [id number] ####[facility] ([facility] [place] [address] MCV (RBC) [Entitic vol] 89.6 fL Normal 82.0-98.0 [facility] Comment on above: Performed By: #### L [id number] ####[facility] ([facility])[address] [place] [address] PLATELETS (10*3/UL) IN BLOOD AUTOMATED COUNT 209 10*3/uL Normal 150-400 [facility] Comment on above: Performed By: #### L [id number] ####[facility] ([facility])[address] [place] [address] RBC (Bld) [#/Vol] 2.30 10*6/uL Low 4.20-5.70 [facility] Comment on above: Performed By: #### L [id number] ####[facility] ([facility])[address] [place] [address] WBC (Bld) [#/Vol] 4.66 10*3/uL Normal 4.00-10.60 [facility] Comment on above: Performed By: #### L [id number] ####[facility] [place] [address] CONSULTon 03-24-2023 CONSULT Normal [facility] CONSULT Normal [facility] CONSULT Normal [facility] CT ABDOMEN PELVIS WO IV CONT RASTon 03-24-2023 CT ABDOMEN PELVIS WO IV CONTRAST Normal [facility] CTA ABDOMEN PELVIS W AND/OR WO IV CONTRASTon 03-24-2023 CTA ABDOMEN PELVIS W AND/OR WO IV CONTRAST Normal [facility] FIBRINOGENon 03-24-2023 Magnesium [Mass/Vol] 268 mg/dL Normal 150-425 [facility] Comment on above: Performed By: #### L [id number] ####[facility] ([facility] [place] [address] HEMOGLOBIN AND HEMATOCRIT, B LOODon 03-24-2023 Hematocrit (Bld) [Volume fraction] 29.6 % Low 39.0-55.0 [facility] Comment on above: Performed By: #### L [id number] ####[facility] ([facility])[address] [place] [address] Hemoglobin (Bld) [Mass/Vol] 10.1 g/dL Low 13.0-17.0 [facility] Comment on above: Performed By: #### L [id number] ####[facility] ([facility] [place] [address] Hematocrit (Bld) [Volume fraction] 20.2 % Low 39.0-55.0 [facility] Comment on above: Performed By: #### L [id number] ####[facility] ([facility])[address] [place] [address] Hemoglobin (Bld) [Mass/Vol] 6.7 g/dL Low 13.0-17.0 [facility] Comment on above: Performed By: #### L [id number] ####[facility] ([facility] [place] [address] LACTIC ACID WITH 4 HOUR REFL EXon 03-24-2023 LACTATE (MMOL/L) IN SER/PLAS 1.0 mmol/L Normal 0.5-2.2 [facility] Comment on above: Performed By: #### L [id number] ####[facility] ([facility])[address] [place] [address] POCT GLUCOSE METER UNSOLICIT ED RESULTSon 03-24-2023 Glucose [Mass/Vol] 129 mg/dL High 70-105 [facility] Comment on above: Order Comment: Waive d Testing in the ED is performed under the ED CLIA certificate #[id number]. Result Comment: kacey [email or web address] Performed By: #### L [id number] ####[facility] ([facility])[address] [place] [address] Glucose [Mass/Vol] 165 mg/dL High 70-105 [facility] Comment on above: Order Comment: Waive d Testing in the ED is performed under the ED CLIA certificate #[id number]. Result Comment: [email or web address] [email or web address] Performed By: #### L [id number] ####[facility] ([facility])[address] [place] [address] Glucose [Mass/Vol] 150 mg/dL High 70-105 [facility] Comment on above: Order Comment: Waive d Testing in the ED is performed under the ED CLIA certificate #[id number]. Result Comment: ebeg in Performed By: #### L [id number] ####[facility] ([facility])[address] [place] [address] PROTIME-INRon 03-24-2023 INR IN PPP BY COAGULATION ASSAY 1.49 High 0.90-1.10 [facility] Comment on above: Result Comment: ACCC P RECOMMENDED INR FOR WARFARIN THERAPY CONDITION INRPROPHYLAXIS OF VENOUS THROMBOSIS 2-3(HIGH-RISK SURGERY)TREATMENT OF VENOUS THROMBOSIS 2-3TREATMENT OF PULMONARY EMBOLISM 2-3PREVENTION OF SYSTEMIC EMBOLISM: 2-3 ACUTE MYOCARDIAL INFARCTION TISSUE HEART VALVES VALVULAR HEART DISEASE ATRIAL FIBRILLATION RECURRENT SYSTEMIC EMBOLISMMECHANICAL HEART VALVE 2.5-3.5 FROM: ORAL ANTICOAGULANTS. MECHANISM OF ACTION, CLINICAL EFFECTIVENESS, AND OPTIMAL THERAPEUTIC RANGE. CHEST 1995;108:231S-246S. Performed By: #### L [id number] ####[facility] [place] [address] PROTHROMBIN TIME (PT) IN PPP BY COAGULATION ASSAY 18.1 Seconds High 12.3-14.8 [facility] Comment on above: Performed By: #### L [id number] ####[facility] [place] [address] TROPONIN Ion 03-24-2023 Troponin I.cardiac [Mass/Vol] 0.30 ng/mL Critically high 0.00-0.04 [facility] Comment on above: Result Comment: Prev ious result verified on 03/24/2023 0806 on specimen/case [id number] called with component Troponin I for procedure Troponin I with value 0.28 ng/mL. Performed By: #### L [id number] ####[facility] [employer])[address] [facility] [place] [address] Troponin I.cardiac [Mass/Vol] 0.29 ng/mL Critically high 0.00-0.04 [facility] Comment on above: Result Comment: Prev ious result verified on 03/24/2023 0806 on specimen/case [id number] called with component Troponin I for procedure Troponin I with value 0.28 ng/mL. Performed By: #### L [id number] ####[facility])[address] [place] [address] Troponin I.cardiac [Mass/Vol] 0.27 ng/mL Critically high 0.00-0.04 [facility] Comment on above: Result Comment: Prev ious result verified on 03/24/2023 0806 on specimen/case [id number] called with component Troponin I for procedure Troponin I with value 0.28 ng/mL. Performed By: #### L [id number] ####[facility] ([facility])[address] [place] [address] Troponin I.cardiac [Mass/Vol] 0.28 ng/mL Critically high 0.00-0.04 [facility] Comment on above: Performed By: #### L [id number] ####[facility] ([facility])[address] [place] [address] TYPE AND SCREENon 03-24-2023 AB SCREEN Negative Normal [facility] Comment on above: Performed By: #### L [id number] ####[facility] BLOOD BANK, ABO group Nom (Bld) B Normal [facility] Comment on above: Performed By: #### L [id number] ####[facility]OD [facility], RH TYPE IN BLOOD Positive Normal [facility] Comment on above: Performed By: #### L [id number] ####[facility] BLOOD [facility], 30on 03-23-2023 30 Normal [facility] 30 Normal [facility] ANTI-XA (HEPARIN LEVEL)on HEPARIN UNFRACTIONATED (U/ML) IN PPP BY CHROMOGENIC METHOD 0.40 IU/mL Normal 0.3-0.7 [facility] Comment on above: Order Comment: Check anti-Xa level every 6 hours while on heparin infusion, or per protocol. Result Comment: [place] roxaban and Apixaban will interfere with the anti Xa assay used to monitor UFH and LMWH. Performed By: #### L [id number] ####[facility] ([facility])[address] [place] [address] HEPARIN UNFRACTIONATED (U/ML) IN PPP BY CHROMOGENIC METHOD 0.30 IU/mL Normal 0.3-0.7 [facility] Comment on above: Result Comment: [place] roxaban and Apixaban will interfere with the anti Xa assay used to monitor UFH and LMWH. Performed By: #### L [id number] ####[facility] ([facility])[address] [place] [address] HEPARIN UNFRACTIONATED (U/ML) IN PPP BY CHROMOGENIC METHOD 0.39 IU/mL Normal 0.3-0.7 [facility] Comment on above: Order Comment: Check anti-Xa level every 6 hours while on heparin infusion, or per protocol. Result Comment: [place] roxaban and Apixaban will interfere with the anti Xa assay used to monitor UFH and LMWH. Performed By: #### L [id number] ####[facility] ([facility])[address] [place] [address] HEPARIN UNFRACTIONATED (U/ML) IN PPP BY CHROMOGENIC METHOD 0.31 IU/mL Normal 0.3-0.7 [facility] Comment on above: Result Comment: [place] roxaban and Apixaban will interfere with the anti Xa assay used to monitor UFH and LMWH. Performed By: #### L [id number] ####[facility] ([facility])[address] [place] [address] BASIC METABOLIC PANELon 03-05 Anion gap [Moles/Vol] 8 mmol/L Normal 7-20 [facility] Comment on above: Performed By: #### L [id number] ####[facility] ([facility])[address] [place] [address] Calcium [Mass/Vol] 8.0 mg/dL Low 8.6-10.3 [facility] Comment on above: Performed By: #### L [id number] ####[facility] ([facility])[address] [place] [address] Chloride [Moles/Vol] 109 mmol/L High 98-107 [facility] Comment on above: Performed By: #### L [id number] ####[facility] ([facility])[address] [place] [address] CO2 [Moles/Vol] 21 mmol/L Normal 21-31 [facility] Comment on above: Performed By: #### L [id number] ####[facility] ([facility])[address] [place] [address] Creatinine [Mass/Vol] 0.81 mg/dL Normal 0.70-1.30 [facility] Comment on above: Performed By: #### L [id number] ####[facility] ([facility])[address] [place] [address] GLOMERULAR FILTRATION RATE ML/MIN/1.73 SQ M.PREDICTED 97.2 mL/min/1.73m*2 Normal >60.0 [facility] Comment on above: Result Comment: The [facility]???s estimated glomerular filtration rate (eGFR) will no longer include consideration of race in its calculation. The National Kidney Foundation???s eGFR Task Force developed new recommendations for the estimation of the glomerular filtration rate in the [place] They recommend immediate implementation of the new equation refit without the race variable in all laboratories because the calculation does not include race. In addition to not including race in the calculation and reporting, it included diversity in its development, and has acceptable performance characteristics and potential consequences that do not disproportionately affect any one group of individuals. Performed By: #### L [id number] ####[facility] ([facility])[address] [place] [address] Glucose [Mass/Vol] 81 mg/dL Normal 70-100 [facility] Comment on above: Performed By: #### L [id number] ####[facility] ([facility])[address] [place] [address] Potassium [Moles/Vol] 3.3 mmol/L Low 3.5-5.1 [facility] Comment on above: Performed By: #### L [id number] ####[facility] ([facility])[address] [place] [address] Sodium [Moles/Vol] 135 mmol/L Low 136-145 [facility] Comment on above: Performed By: #### L [id number] ####[facility] ([facility])[address] [place] [address] Urea nitrogen [Mass/Vol] 13 mg/dL Normal 7-25 [facility] Comment on above: Performed By: #### L [id number] ####[facility] [place] [address] UREA NITROGEN/CREATININE (MASS RATIO) IN SER/PLAS 16.0 Normal [facility] Comment on above: Performed By: #### L [id number] ####[facility] ([facility] [place] [address] CBCon 03-23-2023 Erythrocyte distribution width (RBC) [Ratio] 15.4 % High 11.5-15.0 [facility] Comment on above: Performed By: #### L [id number] ####[facility] ([facility])[address] [place] [address] ERYTHROCYTE MEAN CORPUSCULAR HEMOGLOBIN CONCENTRATION (G/DL) BY AUTOMATED 34.7 g/dL Normal 32.0-35.0 [facility] Comment on above: Performed By: #### L [id number] ####[facility] ([facility])[address] [place], [place] [address] Hematocrit (Bld) [Volume fraction] 25.1 % Low 39.0-55.0 [facility] Comment on above: Performed By: #### L [id number] ####[facility] ([facility], [place] [address] Hemoglobin (Bld) [Mass/Vol] 8.7 g/dL Low 13.0-17.0 [facility] Comment on above: Performed By: #### L [id number] ####[facility] ([facility] [place], [place] [address] MCH (RBC) [Entitic mass] 30.5 pg Normal 27.0-33.0 [facility] Comment on above: Performed By: #### L [id number] ####[facility] ([facility] [place] [address] MCV (RBC) [Entitic vol] 88.1 fL Normal 82.0-98.0 [facility] Comment on above: Performed By: #### L [id number] ####[facility] ([facility])[address] [place] [address] PLATELETS (10*3/UL) IN BLOOD AUTOMATED COUNT 200 10*3/uL Normal 150-400 [facility] Comment on above: Performed By: #### L [id number] ####[facility] ([facility])[address] [place] [address] RBC (Bld) [#/Vol] 2.85 10*6/uL Low 4.20-5.70 [facility] Comment on above: Performed By: #### L [id number] ####[facility] ([facility])[address] [place] [address] WBC (Bld) [#/Vol] 4.82 10*3/uL Normal 4.00-10.60 [facility] Comment on above: Performed By: #### L [id number] ####[facility] ([facility])[address] [place] [address] POCT GLUCOSE METER UNSOLICIT ED RESULTSon 03-23-2023 Glucose [Mass/Vol] 133 mg/dL High 70-105 [facility] Comment on above: Order Comment: Waive d Testing in the ED is performed under the ED CLIA certificate #[id number]. Result Comment: [email or web address] [email or web address] Performed By: #### L [id number] ####[facility] ([facility])[address] [place] [address] Glucose [Mass/Vol] 104 mg/dL Normal 70-105 [facility] Comment on above: Order Comment: Waive d Testing in the ED is performed under the ED CLIA certificate #[id number]. Result Comment: ytho r Performed By: #### L [id number] ####[facility] ([facility])[address] [place] [address] Glucose [Mass/Vol] 92 mg/dL Normal 70-105 [facility] Comment on above: Order Comment: Waive d Testing in the ED is performed under the ED CLIA certificate #[id number]. Result Comment: [email or web address] Performed By: #### L [id number] ####[facility] ([facility])[address] [place] [address] 30on 03-22-2023 30 Normal [facility] 30 Normal [facility] 30 Normal [facility] ANTI-XA (HEPARIN LEVEL)on HEPARIN UNFRACTIONATED (U/ML) IN PPP BY CHROMOGENIC METHOD 0.25 IU/mL Low 0.3-0.7 [facility] Comment on above: Order Comment: Check anti-Xa level every 6 hours while on heparin infusion, or per protocol. Result Comment: [place] roxaban and Apixaban will interfere with the anti Xa assay used to monitor UFH and LMWH. Performed By: #### L [id number] ####[facility] ([facility])[address] [place] [address] HEPARIN UNFRACTIONATED (U/ML) IN PPP BY CHROMOGENIC METHOD 0.19 IU/mL Low 0.3-0.7 [facility] Comment on above: Result Comment: [place] roxaban and Apixaban will interfere with the anti Xa assay used to monitor UFH and LMWH. Performed By: #### L [id number] ####[facility] ([facility])[address] [place] [address] HEPARIN UNFRACTIONATED (U/ML) IN PPP BY CHROMOGENIC METHOD 0.18 IU/mL Low 0.3-0.7 [facility] Comment on above: Order Comment: Check anti-Xa level every 6 hours while on heparin infusion, or per protocol. Result Comment: [place] roxaban and Apixaban will interfere with the anti Xa assay used to monitor UFH and LMWH. Performed By: #### L [id number] ####[facility] ([facility])[address] [place] [address] BASIC METABOLIC PANELon 03-05 Anion gap [Moles/Vol] 9 mmol/L Normal 7-20 [facility] Comment on above: Performed By: #### L [id number] ####[facility] ([facility])[address] [place] [address] Calcium [Mass/Vol] 8.3 mg/dL Low 8.6-10.3 [facility] Comment on above: Performed By: #### L [id number] ####[facility] [place] [address] Chloride [Moles/Vol] 109 mmol/L High 98-107 [facility] Comment on above: Performed By: #### L [id number] ####[facility] ([facility] [place] [address] CO2 [Moles/Vol] 21 mmol/L Normal 21-31 [facility] Comment on above: Performed By: #### L [id number] ####[facility] ([facility] [place] [address] Creatinine [Mass/Vol] 0.77 mg/dL Normal 0.70-1.30 [facility] Comment on above: Performed By: #### L [id number] ####[facility] ([facility] [place] [address] GLOMERULAR FILTRATION RATE ML/MIN/1.73 SQ M.PREDICTED 98.7 mL/min/1.73m*2 Normal >60.0 [facility] Comment on above: Result Comment: The [facility]???s estimated glomerular filtration rate (eGFR) will no longer include consideration of race in its calculation. The National Kidney Foundation???s eGFR Task Force developed new recommendations for the estimation of the glomerular filtration rate in the [place] They recommend immediate implementation of the new equation refit without the race variable in all laboratories because the calculation does not include race. In addition to not including race in the calculation and reporting, it included diversity in its development, and has acceptable performance characteristics and potential consequences that do not disproportionately affect any one group of individuals. Performed By: #### L [id number] ####[facility] ([facility] [place] [address] Glucose [Mass/Vol] 90 mg/dL Normal 70-100 [facility] Comment on above: Performed By: #### L [id number] ####[facility] ([facility])[address] [place] [address] Potassium [Moles/Vol] 3.5 mmol/L Normal 3.5-5.1 [facility] Comment on above: Performed By: #### L [id number] ####[facility] ([facility])[address] [place] [address] Sodium [Moles/Vol] 135 mmol/L Low 136-145 [facility] Comment on above: Performed By: #### L [id number] ####[facility] ([facility])[address] [place] [address] Urea nitrogen [Mass/Vol] 15 mg/dL Normal 7-25 [facility] Comment on above: Performed By: #### L [id number] ####[facility] ([facility])[address] [place] [address] UREA NITROGEN/CREATININE (MASS RATIO) IN SER/PLAS 19.5 Normal [facility] Comment on above: Performed By: #### L [id number] ####[facility] ([facility])[address] [place] [address] BLOOD CULTUREon 03-22-2023 Bacteria identified Cx Nom (Bld) No growth at 5 days Normal [facility] Comment on above: Performed By: #### L [id number] ####[facility] ([facility])[address] [place] [address] CBCon 03-22-2023 Erythrocyte distribution width (RBC) [Ratio] 15.6 % High 11.5-15.0 [facility] Comment on above: Performed By: #### L [id number] ####[facility] ([facility])[address] [place] [address] ERYTHROCYTE MEAN CORPUSCULAR HEMOGLOBIN CONCENTRATION (G/DL) BY AUTOMATED 34.4 g/dL Normal 32.0-35.0 [facility] Comment on above: Performed By: #### L [id number] ####[facility] ([facility])[address] [place] [address] Hematocrit (Bld) [Volume fraction] 27.9 % Low 39.0-55.0 [facility] Comment on above: Performed By: #### L [id number] ####[facility] ([facility])[address] [address] Hemoglobin (Bld) [Mass/Vol] 9.6 g/dL Low 13.0-17.0 [facility] Comment on above: Performed By: #### L [id number] ####[facility] ([facility])[address] [address] MCH (RBC) [Entitic mass] 30.8 pg Normal 27.0-33.0 [facility] Comment on above: Performed By: #### L [id number] ####[facility] ([facility])[address] [place] [address] MCV (RBC) [Entitic vol] 89.4 fL Normal 82.0-98.0 [facility] Comment on above: Performed By: #### L [id number] ####[facility] ([facility])[address] [place] [address] PLATELETS (10*3/UL) IN BLOOD AUTOMATED COUNT 183 10*3/uL Normal 150-400 [facility] Comment on above: Performed By: #### L [id number] ####[facility] ([facility])[address] [place] [address] RBC (Bld) [#/Vol] 3.12 10*6/uL Low 4.20-5.70 [facility] Comment on above: Performed By: #### L [id number] ####[facility] ([facility])[address] [address] WBC (Bld) [#/Vol] 5.06 10*3/uL Normal 4.00-10.60 [facility] Comment on above: Performed By: #### L [id number] ####[facility] ([facility])[address] [place] [address] CONSULTon 03-22-2023 CONSULT Normal [facility] CONSULT Normal [facility] MAGNESIUMon 03-22-2023 Magnesium [Mass/Vol] 2.1 mg/dL Normal 1.9-2.7 [facility] Comment on above: Performed By: #### L [id number] ####[facility] ([facility])[address] [place] [address] POCT GLUCOSE METER UNSOLICIT ED RESULTSon 03-22-2023 Glucose [Mass/Vol] 95 mg/dL Normal 70-105 [facility] Comment on above: Order Comment: Waive d Testing in the ED is performed under the ED CLIA certificate #[id number]. Result Comment: [email or web address] Performed By: #### L [id number] ####[facility] ([facility])[address] [place] [address] Glucose [Mass/Vol] 111 mg/dL High 70-105 [facility] Comment on above: Order Comment: Waive d Testing in the ED is performed under the ED CLIA certificate #[id number]. Result Comment: [email or web address] Performed By: #### L [id number] ####[facility] ([facility])[address] [place] [address] Glucose [Mass/Vol] 96 mg/dL Normal 70-105 [facility] Comment on above: Order Comment: Waive d Testing in the ED is performed under the ED CLIA certificate #[id number]. Result Comment: [email or web address] Performed By: #### L [id number] ####[facility] ([facility])[address] [place] [address] Glucose [Mass/Vol] 96 mg/dL Normal 70-105 [facility] Comment on above: Order Comment: Waive d Testing in the ED is performed under the ED CLIA certificate #[id number]. Result Comment: [email or web address] Performed By: #### L [id number] ####[facility] ([facility])[address] [place] [address] TROPONIN Ion 03-22-2023 Troponin I.cardiac [Mass/Vol] 0.65 ng/mL Critically high 0.00-0.04 [facility] Comment on above: Result Comment: M-AK EVIOUS CRITICAL RESULTPrevious result verified on 03/22/2023 0619 on specimen/case [id number] called with component Troponin I for procedure Troponin I with value 0.58 ng/mL. Performed By: #### L [id number] ####[facility] ([facility])[address] [place] [address] Troponin I.cardiac [Mass/Vol] 0.58 ng/mL Critically high 0.00-0.04 [facility] Comment on above: Result Comment: M-AK EVIOUS CRITICAL RESULTPrevious result verified on 03/22/2023 0252 on specimen/case [id number] called with component Troponin I for procedure Troponin I with value 0.58 ng/mL. Performed By: #### L [id number] ####[facility] ([facility])[address] [place] [address] Troponin I.cardiac [Mass/Vol] 0.58 ng/mL Critically high 0.00-0.04 [facility] Comment on above: Result Comment: M-AK EVIOUS CRITICAL RESULTPrevious result verified on 03/21/2023 1820 on specimen/case [id number] called with component Troponin I for procedure Troponin I with value 0.58 ng/mL. Performed By: #### L [id number] ####[facility] ([facility])[address] [place] [address] 30on 03-21-2023 30 Normal [facility] 30 Normal [facility] ANTI-XA (HEPARIN LEVEL)on HEPARIN UNFRACTIONATED (U/ML) IN PPP BY CHROMOGENIC METHOD 0.15 IU/mL Invalid Interpretation Code 0.3-0.7 [facility] Comment on above: Order Comment: Check anti-Xa level every 6 hours while on heparin infusion, or per protocol. Result Comment: [place] roxaban and Apixaban will interfere with the anti Xa assay used to monitor UFH and LMWH. Performed By: #### L [id number] ####[facility] ([facility])[address] [place] [address] HEPARIN UNFRACTIONATED (U/ML) IN PPP BY CHROMOGENIC METHOD 0.10 IU/mL Invalid Interpretation Code 0.3-0.7 [facility] Comment on above: Order Comment: Check anti-Xa level every 6 hours while on heparin infusion, or per protocol. Result Comment: [place] roxaban and Apixaban will interfere with the anti Xa assay used to monitor UFH and LMWH. Performed By: #### L [id number] ####[facility] ([facility])[address] [place] [address] APTTon 03-21-2023 ACTIVATED PARTIAL THROMBOPLASTIN TIME IN PPP BY COAGULATION ASSAY 36.9 Seconds High 25.0-35.0 [facility] Comment on above: Order Comment: Basel ine aPTT before initiating heparin infusion. Result Comment: Clin ical significance of the APTT is questionable in the presence of heparin. Performed By: #### L [id number] ####[facility] ([facility])[address] [place] [address] BASIC METABOLIC PANELon 03-05 Anion gap [Moles/Vol] 10 mmol/L Normal 7-20 [facility] Comment on above: Performed By: #### L [id number] ####[facility] ([facility])[address] [place] [address] Calcium [Mass/Vol] 8.4 mg/dL Low 8.6-10.3 [facility] Comment on above: Performed By: #### L [id number] ####[facility] ([facility])[address] [place] [address] Chloride [Moles/Vol] 112 mmol/L High 98-107 [facility] Comment on above: Performed By: #### L [id number] ####[facility] ([facility])[address] [place] [address] CO2 [Moles/Vol] 19 mmol/L Low 21-31 [facility] Comment on above: Performed By: #### L [id number] ####[facility] ([facility])[address] [place] [address] Creatinine [Mass/Vol] 0.81 mg/dL Normal 0.70-1.30 [facility] Comment on above: Performed By: #### L [id number] ####[facility] ([facility])[address] [place] [address] GLOMERULAR FILTRATION RATE ML/MIN/1.73 SQ M.PREDICTED 97.2 mL/min/1.73m*2 Normal >60.0 [facility] Comment on above: Result Comment: The [facility]???s estimated glomerular filtration rate (eGFR) will no longer include consideration of race in its calculation. The [employer]???s eGFR Task Force developed new recommendations for the estimation of the glomerular filtration rate in the [place] They recommend immediate implementation of the new equation refit without the race variable in all laboratories because the calculation does not include race. In addition to not including race in the calculation and reporting, it included diversity in its development, and has acceptable performance characteristics and potential consequences that do not disproportionately affect any one group of individuals. Performed By: #### L [id number] ####[facility] ([facility])[address] [place] [address] Glucose [Mass/Vol] 88 mg/dL Normal 70-100 [facility] Comment on above: Performed By: #### L [id number] ####[facility] ([facility])[address] [place] [address] Potassium [Moles/Vol] 3.8 mmol/L Normal 3.5-5.1 [facility] Comment on above: Performed By: #### L [id number] ####[facility] ([facility])[address] [place] [address] Sodium [Moles/Vol] 137 mmol/L Normal 136-145 [facility] Comment on above: Performed By: #### L [id number] ####[facility] ([facility])[address] [place] [address] Urea nitrogen [Mass/Vol] 18 mg/dL Normal 7-25 [facility] Comment on above: Performed By: #### L [id number] ####[facility] ([facility])[address] [address] UREA NITROGEN/CREATININE (MASS RATIO) IN SER/PLAS 22.2 Normal [facility] Comment on above: Performed By: #### L [id number] ####[facility] ([facility])[address] [place] [address] CBC WITH AUTO DIFFERENTIALon 03-21-2023 Basophils (Bld) [#/Vol] 0.02 10*3/uL Normal 0.00-0.20 [facility] Comment on above: Performed By: #### L [id number] ####[facility] ([facility])[address] [place] [address] Basophils/100 WBC (Bld) 0.4 % Normal 0.0-1.0 [facility] Comment on above: Performed By: #### L [id number] ####[facility] ([facility])[address] [place] [address] Eosinophils (Bld) [#/Vol] 0.02 10*3/uL Normal 0.00-0.50 [facility] Comment on above: Performed By: #### L [id number] ####[facility] ([facility])[address] [place] [address] Eosinophils/100 WBC (Bld) 0.4 % Normal 0.0-6.0 [facility] Comment on above: Performed By: #### L [id number] ####[facility] ([facility])[address] [place] [address] Erythrocyte distribution width (RBC) [Ratio] 15.6 % High 11.5-15.0 [facility] Comment on above: Performed By: #### L [id number] ####[facility] ([facility])[address] [place] [address] ERYTHROCYTE MEAN CORPUSCULAR HEMOGLOBIN CONCENTRATION (G/DL) BY AUTOMATED 35.6 g/dL High 32.0-35.0 [facility] Comment on above: Performed By: #### L [id number] ####[facility] ([facility])[address] [place] [address] Hematocrit (Bld) [Volume fraction] 27.0 % Low 39.0-55.0 [facility] Comment on above: Performed By: #### L [id number] ####[facility] ([facility] [place] [address] Hemoglobin (Bld) [Mass/Vol] 9.6 g/dL Low 13.0-17.0 [facility] Comment on above: Performed By: #### L [id number] ####[facility] ([facility])[address] [place] [address] Immature granulocytes (Bld) [#/Vol] 0.04 10*3/uL Normal 0.00-0.20 [facility] Comment on above: Performed By: #### L [id number] ####[facility] ([facility])[address] [place] [address] Immature granulocytes/100 WBC (Bld) 0.8 % Normal 0.0-1.0 [facility] Comment on above: Performed By: #### L [id number] ####[facility] ([facility])[address] [place] [address] Lymphocytes (Bld) [#/Vol] 0.49 10*3/uL Low 1.20-4.00 [facility] Comment on above: Performed By: #### L [id number] ####[facility] ([facility])[address] [place] [address] Lymphocytes/100 WBC (Bld) 9.5 % Low 20.0-45.0 [facility] Comment on above: Performed By: #### L [id number] ####[facility] ([facility])[address] [place] [address] MCH (RBC) [Entitic mass] 31.2 pg Normal 27.0-33.0 [facility] Comment on above: Performed By: #### L [id number] ####[facility] ([facility])[address] [place] [address] MCV (RBC) [Entitic vol] 87.7 fL Normal 82.0-98.0 [facility] Comment on above: Performed By: #### L [id number] ####[facility] ([facility] [place] [address] Monocytes (Bld) [#/Vol] 0.39 10*3/uL Normal 0.10-1.00 [facility] Comment on above: Performed By: #### L [id number] ####[facility] ([facility])[address] [place] [address] Monocytes/100 WBC (Bld) 7.6 % Normal 5.0-12.0 [facility] Comment on above: Performed By: #### L [id number] ####[facility] ([facility])[address] [place] [address] Neutrophils (Bld) [#/Vol] 4.19 10*3/uL Normal 1.60-7.60 [facility] Comment on above: Performed By: #### L [id number] ####[facility] ([facility])[address] [place] [address] Neutrophils/100 WBC (Bld) 81.3 % High 40.0-72.0 [facility] Comment on above: Performed By: #### L [id number] ####[facility] ([facility] [place] [address] NRBC (PER 100 WBCS) BY AUTOMATED COUNT 0.0 % Normal 0 [facility] Comment on above: Performed By: #### L [id number] ####[facility] ([facility] [place] [address] PLATELETS (10*3/UL) IN BLOOD AUTOMATED COUNT 174 10*3/uL Normal 150-400 [facility] Comment on above: Performed By: #### L [id number] ####[facility] ([facility] [place] [address] RBC (Bld) [#/Vol] 3.08 10*6/uL Low 4.20-5.70 [facility] Comment on above: Performed By: #### L [id number] ####[facility] ([facility])[address] [place] [address] WBC (Bld) [#/Vol] 5.15 10*3/uL Normal 4.00-10.60 [facility] Comment on above: Performed By: #### L [id number] ####[facility] ([facility])[address] [place] [address] HPon 03-21-2023 HP Normal [facility] LACTIC ACID WITH 4 HOUR REFL EXon 03-21-2023 LACTATE (MMOL/L) IN SER/PLAS 0.6 mmol/L Normal 0.5-2.2 [facility] Comment on above: Performed By: #### L [id number] ####[facility] ([facility])[address] [place] [address] MAGNESIUMon 03-21-2023 Magnesium [Mass/Vol] 1.7 mg/dL Low 1.9-2.7 [facility] Comment on above: Performed By: #### L [id number] ####[facility] ([facility])[address] [place] [address] PLATELET COUNTon 03-21-2023 PLATELETS (10*3/UL) IN BLOOD AUTOMATED COUNT 171 10*3/uL Normal 150-400 [facility] Comment on above: Performed By: #### L [id number] ####[facility] ([facility])[address] [place] [address] POCT GLUCOSE METER UNSOLICIT ED RESULTSon 03-21-2023 Glucose [Mass/Vol] 123 mg/dL High 70-105 [facility] Comment on above: Order Comment: Waive d Testing in the ED is performed under the ED CLIA certificate #[id number]. Result Comment: [email or web address] Performed By: #### L [id number] ####[facility] ([facility])[address] [place] [address] Glucose [Mass/Vol] 87 mg/dL Normal 70-105 [facility] Comment on above: Order Comment: Waive d Testing in the ED is performed under the ED CLIA certificate #[id number]. Result Comment: [email or web address] [email or web address] Performed By: #### L [id number] ####[facility] ([facility])[address] [place] [address] Glucose [Mass/Vol] 94 mg/dL Normal 70-105 [facility] Comment on above: Order Comment: Waive d Testing in the ED is performed under the ED CLIA certificate #[id number]. Result Comment: [email or web address] Performed By: #### L [id number] ####[facility] ([facility])[address] [place] [address] TROPONIN Ion 03-21-2023 Troponin I.cardiac [Mass/Vol] 0.58 ng/mL Critically high 0.00-0.04 [facility] Comment on above: Result Comment: M-AK EVIOUS CRITICAL RESULTPrevious result verified on 03/21/2023 1448 on specimen/case [id number] called with component Troponin I for procedure Troponin I with value 0.51 ng/mL. Performed By: #### L [id number] ####[facility] ([facility])[address] [facility] [place] [address] Troponin I.cardiac [Mass/Vol] 0.51 ng/mL Critically high 0.00-0.04 [facility] Comment on above: Result Comment: M-TR OPONIN INITIAL CRITICAL HIGH; RESPUN AND RETESTED Performed By: #### L [id number] ####[facility] ([facility])[address] [place] [address] Cult,Urineon 02-02-2023 Cult,Urine Specimen Description .CLEAN CATCH URINE Culture YEAST Josselin albicans/dubliniensis 10 to 50,000 CFU/ML Report Status FINAL 02/02/2023 Normal [facility] Comment on above: Performed By: #### U RC #### [facility] [address] [place], [place] [id number] [place] Former: Will George MD [facility] [address] [place] [address] [place] Former: Robert Mccormack MD Urinalysis w/ Microon 2022 Bacteria 2+ Abnormal NONE [facility] Comment on above: Performed By: #### U AMIC #### [facility] [address] [place] [address] [place] Former: Robert Mccormack MD Bilirubin, SemiQt,Ur SMALL Abnormal NEG [facility] Comment on above: Performed By: #### U AMIC #### [facility] [address] [place] [address] [place] [address] [place] Former: Robert Mccormack MD Blood, Urine 3+ Abnormal NEG [facility] Comment on above: Performed By: #### U AMIC #### [facility] [address] [place], [place] [id number] [place] Former: Robert Mccormack MD Clarity (U) Turbid Abnormal CLEAR [facility] Comment on above: Performed By: #### U AMIC #### [facility] [address] [place] [address] [place] [address] [place] Former: Robert Mccormack MD Color (U) Dark Yellow Abnormal YEL [facility] Comment on above: Performed By: #### U AMIC #### [facility] [address] [place] [address] [place] Former: Robert Mccormack MD Epithelial cells LM Ql (Urine sed) 2 TO 5 Normal 0-5 [facility] Comment on above: Performed By: #### U AMIC #### [facility] [address] [place] [address] [place] Former: Robert Mccormack MD Glucose Ql (U) Negative Normal NEG [facility] Comment on above: Performed By: #### U AMIC #### [facility] [address] [place], [place] [id number] [place] Former: Robert Mccormack MD Ketones Ql (U) TRACE Abnormal NEG [facility] in Hospital Comment on above: Performed By: #### U AMIC #### [facility] [address] [place] [address] [place], [place] [phone] [place] Former: Robert Mccormack MD Leukocyte esterase Test strip Ql (U) MODERATE Abnormal NEG [facility] Comment on above: Performed By: #### U AMIC #### [facility] [address] [place] [address] Dr[place], [place] [phone] [place] Former: Robert Mccormack MD Nitrite,Ur Negative Normal NEG [facility] Comment on above: Performed By: #### U AMIC #### [facility] [address] [place] [address] [place] [place] [id number] [place] Former: Robert Mccormack MD PH,Ur 6.0 Normal 5.0-9.0 [facility] Comment on above: Performed By: #### U AMIC #### [facility] [address] [place] [address] Dr. [place], [place] [phone] [place] Former: Robert Mccormack MD Protein Ql (U) 2+ mg/dL Abnormal NEG [facility] Comment on above: Performed By: #### U AMIC #### [facility] [address] [place] [address] Dr[place], [place] [phone] [place] Former: Robert Mccormack MD Spec. [place],Ur >1.030 High 1.010-1.020 [facility] Comment on above: Performed By: #### U AMIC #### [facility] [address] [place] [address] Dr[place], [place] [phone] [place] Former: Robert Mccormack MD Urine RBC's 10 TO 20 Normal 0-2 [facility] Comment on above: Performed By: #### U AMIC #### [facility] [address] [place], [place] [phone] [place] Former: Robert Mccormack MD Urine WBC's 50 TO 100 Normal 0-5 [facility] Comment on above: Performed By: #### U AMIC #### [facility] [address] [place], [place] [phone] [place] Former: Robert Mccormack MD Urobilinogen,Ur ELEVATED Normal 0.0-1.0 [facility] Comment on above: Performed By: #### U AMIC #### [facility] [address] [place], [place] [phone] [place] Former: Robert Mccormack MD Yeast PRESENCE NOTED Abnormal NONE [facility] Comment on above: Performed By: #### U AMIC #### [address] [place] [phone] [place] Former: Robert Mccormack MD Non-Casting Tester Cytologyon 3 Case No: [id number] Normal [facility] Comment on above: Performed By: #### N REGIONAL CONTROLLER #### [facility] [address] [place] [address] [place] Former: Will George MD [address] [place], [place] [phone] [place] Former: Robert Mccormack MD Non-Casting Tester Cytologyon 3 Specimen Description .VOIDED URINE Normal [facility] Comment on above: Performed By: #### N REGIONAL CONTROLLER #### [facility] [address] [place] [address] [place] Former: Will George MD [address] [place] [address] [place] Former: Robert Mccormack MD Surgical Pathology Reporton 12-25-2022 Surgical Pathology Report (NOTE) Path Number: [id number] INTERPRETATION URINE: NEGATIVE FOR MALIGNANCY. Electronically Signed Out Robert Mccormack M.D. remi/12/26/2022 Source of Specimen: A: URINE Clinical History Lesion of bladder. N32.9. Gross Description UNDESIGNATED 30mL cloudy yellow fluid. MICROSCOPIC DESCRIPTION Microscopic examination performed. Non Casting Tester Thin Prep x 1 Processing Lab: [address] [address] Interpretation performed at [address] [address] NONGYNECOLOGICAL CYTOPATHOLOGY CONSULTATION Patient Name: UMANG HALL [facility] Rec: [id number] [facility] ANATOMIC PATHOLOGY [address] [place] [id number] [facility] [address] angio neckon 12-22-2022 CT angio neck [facility] [address] [place] [address] CT Scan Report Signed Patient: Umang Hall MR#: [id number] 9 : 1955 Acct:[id number] Age/Sex: 67 / M ADM Date: 12/22/22 Loc: CT Room: Type: [facility] Attending Dr: Jimmy Noe MD Copies to: Jimmy Noe MD Ordering Provider: Jimmy Noe MD Date of Service: 12/22/22 CT/CT angio neck: I65.23 ([id number]) CT/CT angio head: I65.23 CTA OF THE HEAD AND NECK WITH CONTRAST CLINICAL DATA: Carotid stenosis on ultrasound COMPARISON: None Spiral images were obtained through the head and neck following 90 mL of Isovue-370. Sagittal and coronal MIP as well as 3-D volume rendered reconstructions of the carotid arteries and inaja of [place] were reviewed. Stenosis is evaluated using NASCET criteria. This CT exam was performed using one or more following dose reduction techniques: Automated exposure control, adjustment of the mA and/or kV according to patient size, or use of iterative reconstruction technique. The aortic arch is barely included on the study. There is minimal plaque at the origin of the brachiocephalic artery. There is also some plaque at the imaged left subclavian and right subclavian arteries. There is no significant associated stenosis. There is plaque at the origin and proximal left vertebral artery where moderate luminal narrowing is seen. The right vertebral artery is not identified until the C2-3 level and it is small in caliber. There is no vertebral dissection. On the right, there is minimal common carotid artery plaque. There is moderate plaque at the bifurcation where soft plaque is also seen. The internal carotid artery is occluded beyond that site. On the left, there is also moderate plaque at the bifurcation and extending into both the internal/external carotid arteries. There could be a short segment of the proximal left internal carotid artery with stenosis greater than 70%. There are degenerative changes at the spine. The upper imaged lungs show no contributory findings. There is significant plaque and associated stenosis at the right V4 segment. There is also a segment with prominent plaque and mild to potentially moderate narrowing of the left distal vertebral artery. The basilar and posterior cerebral arteries show no significant findings. There is mild to moderate bilateral carotid siphon plaque on both sides. The right carotid siphon is not opacified. The left shows mild luminal narrowing. There is reconstitution of the anterior and middle cerebral arteries on the right through the communicating arteries. There is slight irregularity involving the right A1 segment where there could be short segment of stenosis. Anterior and middle cerebral arteries are otherwise patent, without significant stenosis or suspected thrombosis. No aneurysms are identified. The dural venous sinuses are patent. CT/CT angio head IMPRESSION: OCCLUDED RIGHT INTERNAL CAROTID ARTERY, DESCRIBED. OCCLUDED PROXIMAL RIGHT VERTEBRAL ARTERY. ADDITIONAL AREAS OF ATHEROSCLEROTIC PLAQUE AND STENOSIS, DESCRIBED. Impression dictated by: Sandra Rust M.D.12/22/2022 3:30 PM Dictation Location: [place] [address] Transcribed By: [facility] 12/22/22 1530 Dictated By: Sandra Rust MD 12/22/22 1509 Signed By: 12/22/22 1530 Normal [facility] [place] [facility] Creatinine (Bld) [Mass/Vol]O rdered By: Jimmy Noe on 12-22-2022 Creatinine [Mass/Vol] 1.2 mg/dL 0.6-1.3 [facility] [place] [facility] Comment on above: ER/ESD physician is notified/shown all ISTAT results.Critical values may be confirmed by laboratory testing ifdeemed necessary by ER attending doctor. CT UROGRAMon 12-16-2022 CT UROGRAM EXAMINATION: CT UROGRAM 12/15/2022 2:15 pm TECHNIQUE: CT of the abdomen and pelvis was performed before and after the administration of intravenous contrast as per CT urogram protocol. Multiplanar reformatted images as well as MIP urogram images are provided for review. Dose modulation, iterative reconstruction, and/or weight based adjustment of the mA/kV was utilized to reduce the radiation dose to as low as reasonably achievable. COMPARISON: None. HISTORY: ORDERING SYSTEM PROVIDED HISTORY: Microscopic hematuria FINDINGS: Lower Chest: No active disease. Kidneys and Urinary Tract: The precontrast evaluation demonstrates left nephrolithiasis with a mid pole 3 mm stone. No evidence of left obstructive uropathy. No evidence of right stones or obstructive uropathy. Following administration of IV contrast, there is normal and symmetrical bilateral renal function. Collecting systems and ureters are within normal limits. Organs: The liver appears unremarkable. Status post cholecystectomy. Pancreas and spleen, adrenals, aorta and IVC appear stable. GI/Bowel: No evidence of bowel obstruction or perforation. Normal appendix. No acute appendicitis or diverticulitis. Pelvis: Urinary bladder is not distended; however, there is evidence of circumferential thickening more pronounced in the lateral and posterior aspect. Mild inflammation. Cystitis should be considered. No evidence of pelvic lymphadenopathy or significant hernias. Peritoneum/Retroperiton eum: No evidence of retroperitoneal lymphadenopathy or acute mesenteric findings. Bones/Soft Tissues: No acute abnormality. IMPRESSION: 1. Mild left nephrolithiasis but no obstructive uropathy. No evidence of ureteric stones. Normal and symmetrical bilateral renal function. Collecting systems and ureters appear unremarkable. 2. Urinary bladder is nondistended. Some thickening noted more pronounced posteriorly as well as mild inflammatory changes. Cystitis should be considered. No evidence of prostatic enlargement. 3. Status post cholecystectomy. No acute gastrointestinal abnormality. No evidence of lymphadenopathy. Interpreted by: Melissa George MD Signed by: Melissa George MD 12/16/22 Final result Normal [facility] PSA, Screeningon 12-16-2022 Prostatic Spec. Ag 0.92 ng/mL Normal <4.1 [facility] Comment on above: Result Comment: The Huber ECLIA assay is used. Results obtained with different assay methods cannot be used interchangeably. Performed By: #### B UNCRT #### [facility] [address] [place], [place] [id number] [place] Former: Robert Mccormack MD #### PSAS #### [facility] [address] [place], [place] [id number] [place] Former: Will George MD BUN + Creatinineon 3 Creatinine [Mass/Vol] 1.1 mg/dL Normal 0.7-1.2 [facility] Comment on above: Performed By: #### B UNCRT #### [facility] [address] [place] [address] [place] Former: Robert Mccormack MD #### PSAS #### [facility] [address] [place], [place] [id number] [place] Former: Will George MD GFR/1.73 sq M.predicted among non-blacks MDRD (S/P/Bld) [Vol rate/Area] mL/min/{1.73_m2} Normal >60 [facility] Comment on above: Result Comment: These results are not intended for use in patients <18 years of age. eGFR results are calculated without a race factor using the 2020 CKD-EPI equation. Careful clinical correlation is recommended, particularly when comparing to results calculated using previous equations. The CKD-EPI equation is less accurate in patients with extremes of muscle mass, extra-renal metabolism of creatine, excessive creatine ingestion, or following therapy that affects renal tubular secretion. Performed By: #### B UNCRT #### [facility] [address] [place] [address] [address] [place], [place] [id number] [place] Former: Robert Mccormack MD #### PSAS #### [facility] [address] [place], [place] [id number] [place] Former: Will George MD Urea nitrogen [Mass/Vol] 14 mg/dL Normal 8-23 [facility] Comment on above: Performed By: #### B UNCRT #### [facility] [address] [place] [address] [place] Former: Robert Mccormack MD #### PSAS #### [facility] [address] [place], [place] [id number] [place] Former: Will George MD Cult,Urineon 11-17-2022 Cult,Urine Specimen Description .CLEAN CATCH URINE Culture NO GROWTH Report Status FINAL 11/17/2022 Normal [facility] Comment on above: Performed By: #### U RC #### [facility] [address] [place], [place] [address] [place] Former: Will George MD [facility] [address] [place] [address] [place] [address] [place] Former: Robert Mccormack MD Urinalysis w/ Microon 2022 Bacteria 1+ Abnormal NONE [facility] Comment on above: Performed By: #### U AMIC #### [facility] [address] [place] [address] [place] [address] [place] Former: Robert Mccormack MD Bilirubin, SemiQt,Ur Negative Normal NEG [facility] Comment on above: Performed By: #### U AMIC #### [address] [place] [address] [place] Former: Robert Mccormack MD Blood, Urine 3+ Abnormal NEG [facility] Comment on above: Performed By: #### U AMIC #### [facility] [address] [place] [address] [place] [address] [place] Former: Robert Mccormack MD Clarity (U) Cloudy Abnormal CLEAR [facility] Comment on above: Performed By: #### U AMIC #### [facility] [address] [place] [address] [place] [address] [place] Former: Robert Mccormack MD Color (U) Yellow Normal YEL [facility] Comment on above: Performed By: #### U AMIC #### [facility] [address] [place] [address] [place] [address] [place] Former: Robert Mccormack MD Epithelial cells LM Ql (Urine sed) 2 TO 5 Normal 0-5 [facility] Comment on above: Performed By: #### U AMIC #### [facility] [address] [place], [place] [id number] [place] Former: Robert Mccormack MD Glucose Ql (U) Negative Normal NEG [facility] Comment on above: Performed By: #### U AMIC #### [facility] [address] [place] [address] [address] [place], [place] [phone] [place] Former: Robert Mccormack MD Ketones Ql (U) Negative Normal NEG [facility] Comment on above: Performed By: #### U AMIC #### [facility] [address] [place] [address] Dr. [place], [place] [id number] [place] Former: Robert Mccormack MD Leukocyte esterase Test strip Ql (U) MODERATE Abnormal NEG [facility] Comment on above: Performed By: #### U AMIC #### [facility] [address] [place] [address] Dr. [place], [place] [id number] [place] Former: Robert Mccormack MD Nitrite,Ur Negative Normal NEG [facility] Comment on above: Performed By: #### U AMIC #### [facility] [address] [place] [address] Dr. [place], [place] [id number] [place] Former: Robert Mccormack MD PH,Ur 6.0 Normal 5.0-9.0 [facility] Comment on above: Performed By: #### U AMIC #### [facility] [address] [place], [place] [address] [place] Former: Robert Mccormack MD Protein Ql (U) TRACE Abnormal NEG [facility] Comment on above: Performed By: #### U AMIC #### [facility] [address] [place], [place] [id number] [place] Former: Robert Mccormack MD Spec. [place],Ur 1.025 High 1.010-1.020 [facility] Comment on above: Performed By: #### U AMIC #### [facility] [address] [place] [address] [place] Former: Robert Mccormack MD Urine RBC's 20 TO 50 Normal 0-2 [facility] Comment on above: Performed By: #### U AMIC #### [facility] [address] [place], [place] [id number] [place] Former: Robert Mccormack MD Urine WBC's 50 TO 100 Normal 0-5 [facility] Comment on above: Performed By: #### U AMIC #### [facility] [address] [place], [place] [id number] [place] Former: Robert Mccormack MD Urobilinogen,Ur Normal Normal 0.0-1.0 [facility] Comment on above: Performed By: #### U AMIC #### [facility] [address] [place] [address] [place] Former: Robert Mccormack MD US Renal/Bladderon 2 US Renal/Bladder FINDINGS: Right Cdrtce20.7 x 6.4 x 6.7 cm Left Fonzaw65.5 x 6.3 x 6.5 cm Full bladder volume: 136 cc Post-void bladder volume: 23cc. Normal renal size, cortical volume and echotexture is present for this age. No collecting system dilatation or echogenic foci with posterior shadowing are noted. No echogenic foci or suspicious mass lesions, or wall thickening is present within the bladder. Bilateral ureteral jets are identified. 23 cc post-void residual. IMPRESSION: 1. Normal kidneys, no evidence of stone formation or obstruction. 2. No bladder stone or focal wall thickening/mass. 23 cc post-void residual. If symptoms persists following appropriate medical management, CT Urogram maybe of assistance. Report reported and signed by Tutu Knott on 05/13/2021 1027 Normal [facility] Special[facility] Hemoglobin A1Con 04-11-2021 EAG 171.42 Normal [facility] Comment on above: Performed By: #### A 1C #### [facility] [address] [place], [place] [id number] HbA1c (Bld) [Mass fraction] 7.6 % High 4.0-6.0 [facility] Comment on above: Performed By: #### A 1C #### [facility] [address] [place], [place] [id number] Lipid Panelon 04-11-2021 Cholesterol [Mass/Vol] 89 mg/dL Low 125-200 [facility] Comment on above: Result Comment: Low risk < 200mg/dL Borderline risk 201-239 mg/dl High risk > or equal to 240 Performed By: #### L IPD #### [facility] [address] [place], [place] [id number] Cholesterol in HDL [Mass/Vol] 21 mg/dL Low >40 [facility] [employer] Comment on above: Result Comment: High Cardiovascular Risk HDL <40 mg/dL Low Cardiovascular Risk HDL > or equal to 60 mg/dl Performed By: #### L IPD #### [facility] [address] [place], [place] [id number] Cholesterol in LDL [Mass/Vol] 26 mg/dL Normal [facility] Comment on above: Result Comment: LDL ATP III CLASSIFICATION LDL less than 100 mg/dl Optimal LDL 100-129 mg/dl Near or above optimal LDL 130-159 Borderline high LDL 160-189 High LDL greater than 189 mg/dl Very High Performed By: #### L IPD #### [facility] [address] [place], [place] [id number] Cholesterol in VLDL [Mass/Vol] 42 mg/dL Normal [facility] Comment on above: Performed By: #### L IPD #### [facility] [address] [place], [place] [id number] Cholesterol.total/Ch olesterol in HDL [Mass ratio] 4 {ratio} Normal [facility] Comment on above: Performed By: #### L IPD #### [facility] [address] [place], [place] [phone] Triglyceride [Mass/Vol] 208 mg/dL High 30-150 [facility] [employer] Comment on above: Result Comment: TRIG ATPIII CLASSIFICATIONS TRIG less than 150 mg/dl Normal TRIG 150-199 mg/dl Borderline High TRIG 200-500 mg/dl High TRIG greather than 500 mg/dl Very High Performed By: #### L IPD #### [facility] [address] [place], [place] [id number] Consent for COVID Vaccineon 06-05-2020 SARS-CoV-2 (COVID-19) RNA LEILA+probe Ql (Unsp spec) [id number] D:127 [facility] CNPNon 06-04-2020 CNPN Telephone (OPHTMN) UMANG HALL ([id number]) 1955 M Date Time Provider Department 06/04/20 JET GAMING During your visit today, we recorded the following information about you: Onelia Soriano 06/04/2020 3:11 PM Signed Received outside medical records for the following patient. Records have been labeled and sent to scanning for Epic entry. Patient is scheduled to be seen by Dr. Gaming 07/02/2020. Allergies As of Date: 06/04/2020 (Not on File) Date Reviewed: Never Reviewed Reason for Visit: Received Outside Medical Records [[id number]] Problem List As Of Date: 06/04/2020 (None) Encounter Status:Closed by ONELIA SORIANO on 06/04/20 [facility] Consent for Treatmenton 05-03 Consent for Treatment [id number]#[id number] D:127 [facility] Coding Summary.on 05-12-2020 Coding Summary. CODING DATE: 021 FINAL [facility] STATUS: PAYOR: Self Pay APC DESCRIPTION 1492 [employer] - Level 1B ($11-$20) ADMIT DX: REASON FOR VISIT DX: Z23 Encounter for immunization FINAL DX: PRINCIPAL: Z23 Encounter for immunization SECONDARY: PYMT PROC APC STAT DESCRIPTION DOCTOR NAME DATE NOTE: The code number assigned matches the documented diagnosis and / or procedure in the patient's chart. However, the narrative phrase printed from the coding software may appear abbreviated, or result in slightly different terminology. Coded By: Torri Bledsoe Date Saved: 05/12/2020 01:04 pm Normal [facility] Consent for COVID Vaccineon 05-12-2020 SARS-CoV-2 (COVID-19) RNA LEILA+probe Ql (Unsp spec) [id number]#1.00 CD:127 Normal [facility] GLYCOHEMOGLOBIN A1Con 2017 Glucose [Mass/Vol] 163 mg/dL Normal [facility] Comment on above: Performed By: #### A 1C #### [facility] [address] [place], [place] [id number] Dee Flores HbA1c (Bld) [Mass fraction] 7.3 % Critically high <=6.0 [facility] Comment on above: Performed By: #### A 1C #### [facility] [address] [place] [address] Dee Flores PROF 14(COMP METB)on 018 Albumin [Mass/Vol] 3.5 g/dL Normal 3.5-5.0 [facility] Comment on above: Performed By: #### C MP #### [facility] [address] [place], [place] [address] Dee Flores Albumin/Globulin [Mass ratio] 1.1 {ratio} Normal [facility] Comment on above: Performed By: #### C MP #### [facility] [address] [place], [place] [address] Dee Sandra ALP [Catalytic activity/Vol] 95 U/L Normal 38-126 [facility] Comment on above: Performed By: #### C MP #### [facility] [address] [place] [address] Dee Sandra ALT [Catalytic activity/Vol] 33 U/L Normal 21-72 [facility] Comment on above: Performed By: #### C MP #### [facility] [address] [place], [place] [address] Dee Sandra Anion gap [Moles/Vol] 14.3 mmol/L Normal [facility] Comment on above: Performed By: #### C MP #### [facility] [address] [place] [id number] Dee Sandra AST [Catalytic activity/Vol] 23 U/L Normal 17-59 [facility] Comment on above: Performed By: #### C MP #### [facility] [address] [place] [id number] Dee Sandra Bilirubin Ql (U) 0.8 mg/dL Normal 0.2-1.[address] [facility] Comment on above: Performed By: #### C MP #### [facility] [address] [place] [address] Dee Sandra Calcium [Mass/Vol] 8.5 mg/dL Normal 8.4-10.2 [facility] Comment on above: Performed By: #### C MP #### [facility] [address] [place], [place] [address] Dee Sandra Chloride [Moles/Vol] 107 mmol/L Normal 98-107 [facility] Comment on above: Performed By: #### C MP #### [facility] [address] [place], [place] [address] Dee Sandra CO2 [Moles/Vol] 24.0 mmol/L Normal 22.0-30.[address] [facility] Comment on above: Performed By: #### C MP #### [facility] [address] [place], [place] [address] Dee Sandra Creatinine [Mass/Vol] 0.89 mg/dL Normal 0.66-1.25 [facility] Comment on above: Performed By: #### C MP #### [facility] [address] [place], [place] [address] Dee Sandra EGFR-AF RWANDAN >60 Normal >=[address] [facility] Comment on above: Performed By: #### C MP #### [facility] [address] [place] [id number] Dee Sandra EGFR-NON AF RWANDAN >60 Normal >=60 [facility] Comment on above: Performed By: #### C MP #### [facility] [address] [place] [phone] Dee Sandra Globulin (S) [Mass/Vol] 3.2 g/dL Normal [facility] Comment on above: Performed By: #### C MP #### [facility] [address] [place] [address] Dee Sandra Glucose [Mass/Vol] 190 mg/dL Critically high 74-106 [facility] Comment on above: Performed By: #### C MP #### [facility] [address] [place] [phone] Dee Sandra Potassium [Moles/Vol] 4.3 mmol/L Normal 3.4-5.0 [facility] Comment on above: Performed By: #### C MP #### [facility] [address] [place] [address] Dee Sandra Protein [Mass/Vol] 6.7 g/dL Normal 6.1-8.2 [facility] Comment on above: Performed By: #### C MP #### [facility] [address] [place], [place] [address] Dee Sandra Sodium [Moles/Vol] 141 mmol/L Normal 137-145 [facility] Comment on above: Performed By: #### C MP #### [facility] [address] [place] [address] Dee Sandra Urea nitrogen [Mass/Vol] 9.0 mg/dL Normal 9.0-20.0 [facility] Comment on above: Performed By: #### C MP #### [facility] [address] [place] [phone] Dee Sandra Urea nitrogen/Creatinine [Mass ratio] 10.1 mg/mg Normal [facility] Comment on above: Performed By: #### C MP #### [facility] [address] [place] [id number] Dee Sandra ANION GAPon 05-17-2017 Anion gap 17.0 mmol/L High 8.0-16.0 [facility] Comment on above: Result Comment: ANIO N GAP = Sodium -(Chloride + CO2) Performed By: #### C BC, PT, APTT, LACAP, CMPX, LIPAS, ANION, EGFR1, OSMOL, TROPT ####[facility] [employer] [address] [place] [address] APTTon 05-17-2017 aPTT 28.5 s Normal 22.0-38.0 [facility] Comment on above: Result Comment: Ther apeutic Heparin Reference Range= 60-95 seconds(corresponds to 0.3 to 0.7 u/mL Anti-Xa factor activity) Performed By: #### C BC, PT, APTT, LACAP, CMPX, LIPAS, ANION, EGFR1, OSMOL, TROPT ####[place] [address] [place] [address] CALCULATED OSMOLALITYon 05-03 Osmolality 279.1 mOsmol/kg Normal 275.0-300. [facility] Comment on above: Performed By: #### C BC, PT, APTT, LACAP, CMPX, LIPAS, ANION, EGFR1, OSMOL, TROPT ####[facility] [employer] [place] [id number] CBC WITH DIFFERENTIALon 05-03 Basophils Auto #/vol (Bld) 0.0 thou/mm3 Normal 0.0-0.1 [facility] [place] Comment on above: Performed By: #### C BC, PT, APTT, LACAP, CMPX, LIPAS, ANION, EGFR1, OSMOL, TROPT ####[facility] [employer] [address] [place] [address] Basophils/100 WBC Auto (Bld) 0.2 % Normal [facility] [place] Comment on above: Performed By: #### C BC, PT, APTT, LACAP, CMPX, LIPAS, ANION, EGFR1, OSMOL, TROPT ####[facility] [employer] [place] [id number] Eosinophils 0.0 thou/mm3 Normal 0.0-0.4 [facility] Comment on above: Performed By: #### C BC, PT, APTT, LACAP, CMPX, LIPAS, ANION, EGFR1, OSMOL, TROPT ####[place] [address] Eosinophils/100 leukocytes 0.3 % Normal [facility] [place] Comment on above: Performed By: #### C BC, PT, APTT, LACAP, CMPX, LIPAS, ANION, EGFR1, OSMOL, TROPT ####[place] [address] Erythrocyte distribution width Auto Ratio (RBC) 13.7 % Normal 11.5-14.5 [facility] [place] Comment on above: Performed By: #### C BC, PT, APTT, LACAP, CMPX, LIPAS, ANION, EGFR1, OSMOL, TROPT ####[place] [address] Erythrocytes (RBC) 5.04 mill/mm3 Normal 4.70-6.10 [facility] Comment on above: Performed By: #### C BC, PT, APTT, LACAP, CMPX, LIPAS, ANION, EGFR1, OSMOL, TROPT ####[place] [address] Erythrocytes (RBC) 0 /100 wbc Normal [facility] [place] Comment on above: Performed By: #### C BC, PT, APTT, LACAP, CMPX, LIPAS, ANION, EGFR1, OSMOL, TROPT ####[place] [address] Hematocrit (HCT) 46.2 % Normal 42.0-52.0 [facility] Comment on above: Performed By: #### C BC, PT, APTT, LACAP, CMPX, LIPAS, ANION, EGFR1, OSMOL, TROPT ####[place] [address] Hemoglobin mass conc (Bld) 16.2 gm/dl Normal 14.0-18.0 [facility] [place] Comment on above: Performed By: #### C BC, PT, APTT, LACAP, CMPX, LIPAS, ANION, EGFR1, OSMOL, TROPT ####[place] [address] Lymphocytes 1.3 thou/mm3 Normal 1.0-4.8 [facility] Comment on above: Performed By: #### C BC, PT, APTT, LACAP, CMPX, LIPAS, ANION, EGFR1, OSMOL, TROPT ####[place] [address] Lymphocytes/100 leukocytes 13.5 % Normal [facility] [place] Comment on above: Performed By: #### C BC, PT, APTT, LACAP, CMPX, LIPAS, ANION, EGFR1, OSMOL, TROPT ####[place] [address] MCH 32.2 pg High 27.0-31.0 [facility] [place] Comment on above: Performed By: #### C BC, PT, APTT, LACAP, CMPX, LIPAS, ANION, EGFR1, OSMOL, TROPT ####[place] [address] MCHC mass conc (RBC) 35.2 gm/dl Normal 33.0-37.0 [facility] Comment on above: Performed By: #### C BC, PT, APTT, LACAP, CMPX, LIPAS, ANION, EGFR1, OSMOL, TROPT ####[place] [address] MCV 91.6 fL Normal 80.0-94.0 [facility] [place] Comment on above: Performed By: #### C BC, PT, APTT, LACAP, CMPX, LIPAS, ANION, EGFR1, OSMOL, TROPT ####[place] [address] Monocytes 0.7 thou/mm3 Normal 0.4-1.3 [facility] [place] Comment on above: Performed By: #### C BC, PT, APTT, LACAP, CMPX, LIPAS, ANION, EGFR1, OSMOL, TROPT ####[place] [address] Monocytes/100 leukocytes 7.5 % Normal [facility] [place] Comment on above: Performed By: #### C BC, PT, APTT, LACAP, CMPX, LIPAS, ANION, EGFR1, OSMOL, TROPT ####[place] [address] Platelet mean volume (PMV) 9.9 fL Normal 7.4-10.4 [facility] [place] Comment on above: Performed By: #### C BC, PT, APTT, LACAP, CMPX, LIPAS, ANION, EGFR1, OSMOL, TROPT ####[place] [address] Platelets 131 thou/mm3 Normal 130-400 [facility] [place] Comment on above: Performed By: #### C BC, PT, APTT, LACAP, CMPX, LIPAS, ANION, EGFR1, OSMOL, TROPT ####[place] [address] SEGS 78.5 % Normal [facility] [place] Comment on above: Performed By: #### C BC, PT, APTT, LACAP, CMPX, LIPAS, ANION, EGFR1, OSMOL, TROPT ####[place] [address] SEGS ABSOLUTE COUNT 7.4 thou/mm3 Normal 1.8-7.7 [facility] Comment on above: Performed By: #### C BC, PT, APTT, LACAP, CMPX, LIPAS, ANION, EGFR1, OSMOL, TROPT ####[place] [address] WBC (Leukocytes) 9.4 thou/mm3 Normal 4.8-10.8 [facility] [place] Comment on above: Performed By: #### C BC, PT, APTT, LACAP, CMPX, LIPAS, ANION, EGFR1, OSMOL, TROPT ####[place] [address] COMP. METABOLIC PANELon 05-03 Alanine aminotransferase (ALT) 28 U/L Normal 11-66 [facility] [place] Comment on above: Performed By: #### C BC, PT, APTT, LACAP, CMPX, LIPAS, ANION, EGFR1, OSMOL, TROPT ####[facility] [address] [place] [address] Albumin 4.0 g/dL Normal 3.5-5.1 [facility] [place] Comment on above: Performed By: #### C BC, PT, APTT, LACAP, CMPX, LIPAS, ANION, EGFR1, OSMOL, TROPT ####[address] [place] [address] Alkaline phosphatase (ALP) 91 U/L Normal 38-126 [facility] [place] Comment on above: Performed By: #### C BC, PT, APTT, LACAP, CMPX, LIPAS, ANION, EGFR1, OSMOL, TROPT ####[place] [address] Aspartate aminotransferase (AST) 35 U/L Normal 5-40 [facility] [place] Comment on above: Performed By: #### C BC, PT, APTT, LACAP, CMPX, LIPAS, ANION, EGFR1, OSMOL, TROPT ####[place] [address] Bilirubin Ql (U) 1.2 mg/dL Normal 0.3-1.2 [facility] Comment on above: Performed By: #### C BC, PT, APTT, LACAP, CMPX, LIPAS, ANION, EGFR1, OSMOL, TROPT ####[address] [place] [address] Calcium 8.2 mg/dL Low 8.5-10.5 [facility] [place] Comment on above: Performed By: #### C BC, PT, APTT, LACAP, CMPX, LIPAS, ANION, EGFR1, OSMOL, TROPT ####[address] [place] [address] Chloride 98 mmol/L Normal 98-111 [facility] [place] Comment on above: Performed By: #### C BC, PT, APTT, LACAP, CMPX, LIPAS, ANION, EGFR1, OSMOL, TROPT ####[address] [place] [address] CO2 21 mmol/L Low 23-33 [facility] [place] Comment on above: Performed By: #### C BC, PT, APTT, LACAP, CMPX, LIPAS, ANION, EGFR1, OSMOL, TROPT ####[address] [place] [address] Creatinine 0.9 mg/dL Normal 0.4-1.2 [facility] [place] Comment on above: Performed By: #### C BC, PT, APTT, LACAP, CMPX, LIPAS, ANION, EGFR1, OSMOL, TROPT ####[place] [address] Glucose mass conc 192 mg/dL High 70-108 [facility] Comment on above: Performed By: #### C BC, PT, APTT, LACAP, CMPX, LIPAS, ANION, EGFR1, OSMOL, TROPT ####[place] [address] Potassium molar conc 3.7 mmol/L Normal 3.5-5.2 [facility] Comment on above: Performed By: #### C BC, PT, APTT, LACAP, CMPX, LIPAS, ANION, EGFR1, OSMOL, TROPT ####[place] [address] Protein 6.8 g/dL Normal 6.1-8.0 [facility] [place] Comment on above: Performed By: #### C BC, PT, APTT, LACAP, CMPX, LIPAS, ANION, EGFR1, OSMOL, TROPT ####[place] [address] Sodium 136 mmol/L Normal 135-145 [facility] [place] Comment on above: Performed By: #### C BC, PT, APTT, LACAP, CMPX, LIPAS, ANION, EGFR1, OSMOL, TROPT ####[place] [address] Urea nitrogen 18 mg/dL Normal 7-22 [facility] Comment on above: Performed By: #### C BC, PT, APTT, LACAP, CMPX, LIPAS, ANION, EGFR1, OSMOL, TROPT ####[employer] [address] [place] [address] CT ABDOMEN PELVIS WO CONTRAS Ton 05-17-2017 CT ABDOMEN PELVIS WO CONTRAST PROCEDURE: CT ABDOMEN PELVIS WO CONTRASTCLINICAL INFORMATION: N/V/D epigastric pain .COMPARISON: None.TECHNIQUE: Axial [address] images were obtained through the abdomen and pelvis. No contrast was given. Coronal reconstructions were obtained.All CT scans at this facility use dose modulation, iterative reconstruction, and/or weight-based dosing when appropriate to reduce radiation dose to as low as reasonably achievable.FINDINGS:The visualized aspects of the lung bases are clear. The base of the heart is within appropriate limits.No liver masses are noted. The spleen is normal. The adrenal glands and pancreas are within acceptable limits. There are numerous layering radiodense gallstones in the otherwise normal-appearing gallbladder. No intra or extrahepatic biliary ductal dilatation. There is no hydronephrosis or stones of either kidney. No contour deforming renal masses are noted.The urinary bladder is normal. There is a small hiatal hernia. The stomach otherwise appears normal.No abnormalities of the small bowel loops are noted. The descending and sigmoid colon are minimally filled with a gas and stool given the wall is slightly thickened appearance. There is no significant pericolonic fat stranding. The IVC and aorta are of normal caliber. There are scattered moderately dense calcifications of the nelson of the abdominal aorta and iliac arteries. There is no adenopathy. There is no pelvic free fluid.No suspicious osseous lesions are present. There is significant calcification of the posterior annulus of the mildly to moderately bulging L5-S1 disc. This is causing at least moderate encroachment into the central spinal canal at this level.IMPRESSION: 1. No evidence of an acute process in the abdomen or pelvis.2. The nelson of the descending colon and sigmoid colon appear slightly thickened. Favor this is secondary to decompression of the colon rather than colitis as there are no secondary signs of inflammatory process involving the colon.3. Cholelithiasis.4. Small hiatal hernia.This report has been created using voice recognition software. It may contain minor errors which are inherent in voice recognition technology.Final report electronically signed by Dr. Mele Carcamo on 05/17/2017 12:37 AMInterpreted by:Mele Carcamo, DOSigned by:Mele Carcamo, DO3/inal result Normal [facility] [place] ED Provider Noteon 8 HIM IP Note OR Sieve Maker Normal [facility] [place] GFR, ESTIMATEDon 05-17-2017 eGFR (MDRD) 86 ml/min/1.73m2 Abnormal [facility] Comment on above: Result Comment: Mateo gao Description GFR, ml/min/1.73 m2 - At increased risk > or = 60 (with chronic kidney disease risk factors) 1 Normal or increased GFR > or = 90 2 Mildly or decreased GFR 60 - 89 3 Moderately decreased GFR 30 - 59 4 Severely decreased GFR 15 - 29 5 Kidney failure <15 (or dialysis)Estimated GFR calculated using abbreviated MDRD formula asrecommended by National Kidney Foundation. Calculation basedupon serum creatinine and adjusted for age, gender & race.Jasmyne. Internal Med., Vol. 139 (2) pg 137-147. Performed By: #### C BC, PT, APTT, LACAP, CMPX, LIPAS, ANION, EGFR1, OSMOL, TROPT ####[facility] [address] [place] [address] INFLUENZA A + B ANTIGENon INFLUENZA A AG Negative Normal NEGATIVE [facility] Comment on above: Performed By: #### C BC, PT, APTT, LACAP, CMPX, LIPAS, ANION, EGFR1, OSMOL, TROPT ####[employer] [address] [place] [address] INFLUENZA B AG Negative Normal NEGATIVE [facility] Comment on above: Performed By: #### C BC, PT, APTT, LACAP, CMPX, LIPAS, ANION, EGFR1, OSMOL, TROPT ####[employer] [address] [place] [address] LACTIC ACIDon 05-17-2017 Lactate 1.2 mmol/L Normal 0.5-2.2 [facility] [place] Comment on above: Performed By: #### C BC, PT, APTT, LACAP, CMPX, LIPAS, ANION, EGFR1, OSMOL, TROPT ####[employer] [address] [place] [address] LIPASEon 05-17-2017 Lipase 85.5 U/L High 5.6-51.3 [facility] [place] Comment on above: Performed By: #### C BC, PT, APTT, LACAP, CMPX, LIPAS, ANION, EGFR1, OSMOL, TROPT ####[facility] [employer] [place] [address] PROTHOMBIN TIMEon 05-17-2017 INR Coag RelTime (PPP) 1.05 {INR} Normal 0.85-1.13 [facility] [place] Comment on above: Result Comment: ---- -----INDICATION INR Reference RangeDVT, PE, AF, AMI, tissue heart valve 2.0 to 3.0Mechanical prosthetic valves 2.5 to 3.5 Performed By: #### C BC, PT, APTT, LACAP, CMPX, LIPAS, ANION, EGFR1, OSMOL, TROPT ####[facility] [address] [place] [address] TROPONIN-Ton 05-17-2017 Troponin T.cardiac mass conc ug/L Normal [facility] [place] Comment on above: Result Comment: <0.0 10 ng/ml Normal> or = 0.010 ng/ml Elevated (99%) Consistent with myocardial damageCardiac troponin values can be elevated by many disease states in additionto acute ischemia. These include, but are not limited to: chronic renalfailure, CHF, CVA, pulmonary embolus, COPD, myocardial trauma/surgery,myocarditis, pericarditis, tachycardia, aortic dissection, amyloidosis,sepsis and strenuous exercise. Serial measurement of troponin is stronglyrecommended as a first step in determining whether a low level elevationrepresents an acute or chronic condition. Performed By: #### C BC, PT, APTT, LACAP, CMPX, LIPAS, ANION, EGFR1, OSMOL, TROPT ####[facility] [address] [place] [address] XR CHEST (2 VW)on 05-17-2017 XR CHEST (2 VW) PROCEDURE: XR CHEST (2 VW)CLINICAL INFORMATION: cough, .COMPARISON: No prior study.TECHNIQUE: PA and lateral views the chest.FINDINGS:The heart size is normal. The mediastinum is not widened. There are no pulmonary infiltrates or effusions. The pulmonary vascularity is normal. No suspicious osseous lesions are present.IMPRESSION: 1. No acute cardiopulmonary process.This report has been created using voice recognition software. It may contain minor errors which are inherent in voice recognition technology.Final report electronically signed by Dr. Mele Carcamo on 05/17/2017 1:02 AMInterpreted by:Mele Carcamo, DOSigned by:Mele Carcamo, DO05/17/17inal result Normal [facility] [place] Vital Signs Date Time Vital Sign Value Performing Clinician Facility 01-04-2023 08:30-0400 Body height 175.26 cm Jimmy Noe Other [facility] Other 01-04-2023 08:30-0400 Body mass index (BMI) [Ratio] 23.92 kg/m2 Jimmy Noe Other [facility] Other 01-04-2023 08:30-0400 Body temperature 96.2 [degF] Jimmy Noe Other [facility] Other 01-04-2023 08:30-0400 Body weight 73.48 kg Jimmy Noe Other [facility] Other 01-04-2023 08:30-0400 Diastolic blood pressure 62 mm[Hg] Jimmy Noe Other [facility] Other 01-04-2023 08:30-0400 SaO2% (BldA) [Mass fraction] 99 % Jimmy Noe Other [facility] Other 01-04-2023 08:30-0400 Systolic blood pressure 122 mm[Hg] Jimmy Noe Other [facility] Other 11-29-2022 08:30-0400 Body height 175.26 cm Jimmy Noe Other [facility] Other 11-29-2022 08:30-0400 Body mass index (BMI) [Ratio] 24.81 kg/m2 Jimmy Noe Other [facility] Other 11-29-2022 08:30-0400 Body temperature 97.8 [degF] Jimmy Noe Other [facility] Other 11-29-2022 08:30-0400 Body weight 76.2 kg Jimmy Noe Other [facility] Other 11-29-2022 08:30-0400 Diastolic blood pressure 62 mm[Hg] Jimmy Noe Other [facility] Other 11-29-2022 08:30-0400 SaO2% (BldA) [Mass fraction] 98 % Jimmy Noe Other [facility] Other 11-29-2022 08:30-0400 Systolic blood pressure 110 mm[Hg] Jimmy Noe Other [facility] Other Encounters Encounter Date Encounter Type Care Provider Facility Start: 03-28-2023 Evaluation and management of inpatient JOEY [facility] Start: 03-28-2023 Evaluation and management of inpatient NOORALDIN RICKEYZA [facility] Start: 03-26-2023 Evaluation and management of inpatient DON JERICHO [facility] Start: 03-26-2023 [facility]: 03-26-2023 Evaluation and management of inpatient SARMED [facility] Start: 03-24-2023 Evaluation and management of inpatient ADRIANAB KOREYALY [facility] Start: 03-24-2023 Evaluation and management of inpatient TAPAN [facility] Start: 03-24-2023 Evaluation and management of inpatient TAPAN [facility] Start: 03-24-2023 Evaluation and management of inpatient DON ECHAVARRIA [facility] Start: 03-21-2023 Evaluation and management of inpatient [facility] Start: 03-21-2023 Evaluation and management of inpatient SRINI [facility] Start: 03-21-2023 Evaluation and management of inpatient SRINI [facility] Start: 03-21-2023 End: 03-31-2023 Evaluation and management of inpatient SHAIKH VIPUL [facility] Start: 02-15-2023 End: 02-15-2023 ambulatory JUAN BHATIA Not Available Start: 02-01-2023 End: 02-02-2023 ambulatory [facility] Start: 01-04-2023 End: 01-04-2023 ambulatory Jimmy Noe Other [facility] Other Start: 01-04-2023 Office outpatient visit 25 minutes Jimmy Noe [facility] Start: 12-25-2022 End: 12-26-2022 ambulatory JO[facility] Start: 12-22-2022 End: 12-22-2022 ambulatory Jimmy Noe Facility:[facility] Start: 12-22-2022 End: 12-22-2022 ambulatory MD Juan Bhatia Work Phone: [facility] Work Phone: Start: 12-22-2022 End: 12-22-2022 Patient encounter procedure MD Juan Bhatia Work Phone: [facility] Work Phone: Start: 12-15-2022 End: 12-18-2022 ambulatory JUAN [facility] Start: 11-29-2022 End: 11-29-2022 ambulatory Jimmy Noe Other [employer] Other Start: 11-29-2022 Office outpatient ne w 60 minutes Jimmy Noe [facility] Start: 11-16-2022 End: 11-17-2022 ambulatory JUAN BHATIA [facility] Start: 11-21-2018 Patient encounter procedure JUAN BHATIA Facility:[facility] Start: 12-14-2017 End: 12-15-2017 Patient encounter procedure JUAN BHATIA Facility:[facility] Start: 05-17-2017 End: 05-17-2017 Emergency department patient visit INCK GUEVARA [facility] [place] Procedures Date Procedure Procedure Detail Performing Clinician Start: 12-22-2022 CT angiography of head MD Juan Bhatia Work Phone: Start: 12-22-2022 CT angiography of ne ck vessels MD Juan Bhatia Work Phone: Start: 05-17-2017 Radiologic exam ches t 2 views NICK GUEVARA Start: 05-17-2017 Ct abdomen & pelvis w/o contrast material NICK GUEVARA Start: 05-17-2017 RAPID INFLUENZA A/B ANTIGENS NICK GUEVARA Start: 05-17-2017 ANION GAP NICK GUEVARA Start: 05-17-2017 APTT NICK GUEVARA Start: 05-17-2017 CBC WITH AUTO DIFFERENTIAL NICK GUEVARA Start: 05-17-2017 COMPREHENSIVE METABO LIC PANEL W/ REFLEX TO MG FOR LOW K NICK GUEVARA Start: 05-17-2017 GLOMERULAR FILTRATIO N RATE, ESTIMATED NICK GUEVARA Start: 05-17-2017 LACTIC ACID, PLASMA GINA Mika GUEVARA Start: 05-17-2017 LIPASE NICK GUEVARA Start: 05-17-2017 OSMOLALITY NICK GUEVARA Start: 05-17-2017 PROTIME-INR NICK GUEVARA Start: 05-17-2017 TROPONIN NICK GUEVARA Start: 05-17-2017 EKG 12-LEAD NICK GUEVARA Start: 05-17-2017 TELEMETRY MONITORING JAREK TL GUEVARA Start: 05-17-2017 URINE RT REFLEX TO CULTURE NICK GUEVARA Plan of Treatment Date Care Activity Detail Author [facility] Payers Date Payer Category Payer Unknown [id number] 2021 Medicare [id number] 2.1 [id number] 1959 Self-pay 1958 Unknown [id number] 1955 Unknown [id number] 2.16.84 [id number] 1955 Unknown [id number] 2.16.84 [id number] 1955 Unknown [id number] 2.16.8 [id number] 1956 Unknown [id number] 2.16.8 [id number] 1956 Unknown [id number] 2.16.8 [id number] 1956 Unknown [id number] 2.16.8 [id number] 1955 Unknown [id number] 2.16.8 [id number] 1955 Unknown [id number] Private Health Insurance CLI [id number] Private Health Insurance [employer] SSI [id number] Unknown [id number] 2.16.8 [id number] Social History Date Type Detail Facility Sex Assigned At [facility] Other Start: 1955 Sex Assigned At Male [facility] Clinical Notes 09-03-2020 to 03-31-2023 Note Date & Type Note Facility 03-31-2023 Note [facility] 03-31-2023 Note [facility] 03-31-2023 Note [facility] 03-31-2023 Note [facility] 03-31-2023 Note [facility] 03-30-2023 Note [facility] 03-30-2023 Note [facility] 03-30-2023 Note OT indicating discha rge home PT indicating discharge inpatient rehab OTM following: needing aligned discharge recommendations so that discharge planning can move forward [facility] 03-30-2023 Note [facility] 03-30-2023 Note [facility] 03-30-2023 Note [facility] 03-30-2023 Note [facility] 03-29-2023 Note [facility] 03-29-2023 Note [facility] 03-29-2023 Note [facility] 03-29-2023 Note [facility] 03-28-2023 Note [facility] 03-28-2023 Note [facility] 03-28-2023 Note [facility] 03-28-2023 Note [facility] 03-28-2023 Note [facility] 03-28-2023 Note [facility] 03-27-2023 Note [facility] 03-27-2023 Note Physical Therapy upd ated cancellation note for Sunday03/27/23 Nursing got clarification on pts' functional status and pt is not to do any strenous exercise , fha underwriter can walk pt later in the hallways. [facility] 03-27-2023 Note [facility] 03-27-2023 Note [facility] 03-27-2023 Note [facility] 03-27-2023 Note [facility] 03-26-2023 Note [facility] 03-26-2023 Note [facility] 03-26-2023 Note [facility] 03-26-2023 Note [facility] 03-25-2023 Note [facility] 03-25-2023 Note [facility] 03-25-2023 Note [facility] 03-25-2023 Note [facility] 03-25-2023 Note [facility] 03-24-2023 Note [facility] 03-24-2023 Note [facility] 03-24-2023 Note [facility] 03-24-2023 Note [facility] 03-24-2023 Note [facility] 03-23-2023 Note [facility] 03-23-2023 Note [facility] 03-23-2023 Note [facility] 03-23-2023 Note [facility] 03-22-2023 Note [facility] 03-22-2023 Note [facility] 03-22-2023 Note [facility] 03-22-2023 Note [facility] 03-21-2023 Note [facility] 01-04-2023 Evaluation note Encounter Date Diagnosis Assessment Notes Jan, Right carotid artery occlusion (ICD-10 - I65.21) Jan, Carotid artery, internal, occlusion, right (ICD-10 - I65.21) Jan, Asymptomatic stenosis of left carotid artery (ICD-10 - I65.22) This patient does have a known right internal carotid artery occlusion. He has about 70% stenosis of the left internal carotid artery. Currently the patient is asymptomatic. Therefore I am recommending maximal medical management with antiplatelet and statin therapy. This patient may be a candidate for injectable statin. We will discuss this with his PCP. The patient states that he has tried previous statins and they have caused significant muscle weakness and loss of muscle. Given the degree of his stenoses and a contralateral occlusion I highly recommend statin therapy. We will reach out to his PCP to have this discussion. Otherwise I will see the patient back in 6 months with a repeat carotid duplex. There is no indicated indication for any surgical intervention this time. The patient is asymptomatic. [facility] Other 09-27-2023 Evaluation note* Encounter Date Diagnosis Assessment Notes Treatment Notes Treatment Clinical Notes Nov, Bilateral carotid artery stenosis (ICD-10 - I65.23) I did review the carotid duplex results from the outside facility. It does appear that the right internal carotid artery is occluded. No flow is identified in the right vertebral artery. Normal antegrade flow was identified in the left vertebral artery. Severe stenosis was identified in the left carotid bulb. End-diastolic volumes were greater than 100. This patient will need a CT angiogram to further identify the anatomy on the left carotid. This patient potentially would require revascularization in order to prevent the devastating consequences of stroke. I did give him a carotid stenoses handout booklet today and we reviewed we reviewed the pages. We will see him back in a few weeks after the CT angiogram to develop a course of action and plan. The meantime he should quit smoking. He is aware of this. [facility] Other 07-02-2021 NoteHNO ID: [id number] Author: Jet Gaming MD Service: ? Author Type: Physician Type: Progress Notes Filed: 09/03/2020 5:01 PM Note Text: ASSESSMENT/PLAN: 1. Bullous keratopathy of right eye - ICD9: 371.23, ICD10: H18.11 (primary diagnosis) Slight edema He reported worsening vision following cataract surgery Cell counts 1180 / 1550 today Defer EK at this time, his NVI / hyphema will also increase risk of complication - ECC/CONFOCAL MICROSCOPY OU (BOTH EYES) 2. Pseudophakia - ICD9: V43.1, ICD10: Z96.1 Right eye post YAG Lens looks good - FLUORESCEIN 0.25 %-BENOXINATE 0.4 % EYE DROPS - PROPARACAINE 0.5 % EYE DROPS - CORNEAL TOPOGRAPHY ATLAS OU (BOTH EYES) 3. Neovascular glaucoma, right eye, severe stage - ICD9: 365.63, 365.73, ICD10: H40.51X3 Treated by Dr. Graham - OCT OPTIC NERVE CIRRUS OU (BOTH EYES) 4. 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 NVI in both eyes, encouraged close follow-up with Gladys Note to Gladys Gaming MD I have confirmed and edited as necessary the relevant ophthalmic history, ROS, and the neuro exam findings as obtained by others. I have seen and examined Umang Hall. I have discussed the case and the management of this patient's care with the Resident/Fellow, if applicable. I also have reviewed and agree with the assessment and plan as stated above and agree with all of its relevant components. Jet Gaming [facility] noteNo assessment information availableMercy Memorial Hospital Work Phone: History general Narrative - Reported* Type Description Date Medical History Hypertension Medical History [place] Medical History Esophageal reflux Medical History carotid artery stenosis Medical History Stage 3 CKD Medical History CAD Medical History Diabetes Surgical History Triple Bypass Surgical History cholecystectomy Surgical History Cardiac Stents Hospitalization History See above [facility] Other Summary Purpose Family History No Family History Records FoundNo Family History Records FoundNo Family History Records FoundNo Family History Records FoundNo Family History Records FoundNo Family History Records FoundNo Family History Records FoundNo Family History Records FoundNo Family History Records Found Advance Directives No Advanced Directives Records Found Advance Directive Response Recorded Date/ Time Advance Directives No December 20, 2022 9:13am Chief Complaint and Reason for Visit Chief Complaint i65.23 Additional Source Comments (unrecognized sect ion and content) No Status Records FoundNo Status Records FoundNo Status Records FoundNo Status Records FoundNo Status Records FoundNo Status Records FoundNo Status Records FoundNo Status Records FoundNo Status Records Found INFORMATION SOURCE (unrecogn ized section and content) DATE [facility]ATED [facility] DATE CREATED AUTHOR AUTHOR'S ORGANIZ ATION 11/21/2018 Joana rae DATE CREATED AUTHOR AUTHOR'S ORGANIZ ATION 08/28/2020 [facility] DATE CREATED AUTHOR AUTHOR'S ORGANIZ ATION 04/03/2021 [facility] DATE CREATED AUTHOR AUTHOR'S ORGANIZ ATION 05/14/2021 [facility] DATE CREATED AUTHOR AUTHOR'S ORGANIZ ATION 12/31/2022 [facility] DATE CREATED AUTHOR AUTHOR'S ORGANIZ ATION 02/03/2023 [facility] DATE CREATED AUTHOR AUTHOR'S ORGANIZ ATION 02/17/2023 [facility] EPIC DATE CREATED AUTHOR AUTHOR'S ORGANIZ ATION 04/03/2023 [facility] REASON FOR VISIT (unrecogniz ed section and content) REF BY JUAN BENNETT FOR C AROTID ARTERY OCCLUSION B/LGO OVER CT SCAN DONE AT [facility] Care Teams (unrecognized sec tion and content) Team Status: Active Member Role Status Dates Juan Bhatia MD Primary Care Provider Active Team Status: Inactive Member Role Status Dates Jimmy Noe MD Attending Provider Active Juan Bhatia MD Primary Care Provider Active Goals (unrecognized section and content) Goals may be documented in a n alternate section FOR RECORDS PERTAINING TO PATIENTS WHO ARE OR HAVE BEEN ENROLLED IN A CHEMICAL DEPENDENCY/SUBSTANCEABUSE PROGRAM, SOME INFORMATION MAY BE OMITTED. This clinical summary was aggregated from multiple sources. Caution should be exercised in using it in the provision of clinical care. This summary normalizes information from multiple sources, and as a consequence, information in this document may materially change the coding, format and clinical context of patient data. In addition, data may be omitted in some cases. CLINICAL DECISIONS SHOULD BE BASED ON THE PRIMARY CLINICAL RECORDS. [employer] provides no warranty or guarantee of the accuracy or completeness of information in this document.
[2023-04-03 17:09] LABS: Basophils Absolute Auto 0.1 10^3/uL (0.0-0.1); Basophils Percent Auto 1.1 % (0.2-2.0); Eosinophils Absolute Auto 0.1 10^3/uL (0.0-0.7); Eosinophils Percent Auto 0.8 % (0.9-7.0); Hematocrit 32.6 % (42.0-54.0); Hemoglobin 10.6 g/dL (14.0-18.0); Immature Granulocytes Abs Auto 0.02 10^3/uL (0.00-0.03); Immature Granulocytes Pct Auto 0.3 % (0.0-0.5); Lymphocytes Absolute Auto 1.3 10^3/uL (1.2-3.8); Lymphocytes Percent Auto 20.9 % (20.5-60.0); Mean Corpuscular HGB Conc 32.5 g/dL (29.9-35.2); Mean Corpuscular Volume 95.3 fL (80.0-94.0); Mean Platelet Volume 9.9 fL (9.5-13.5); Monocytes Absolute Auto 0.7 10^3/uL (0.3-0.8); Monocytes Percent Auto 10.7 % (1.7-12.0); Neutrophils Absolute Auto 4.2 10^3/uL (1.4-6.5); Neutrophils Percent Auto 66.2 % (43.0-75.0); Platelet Count 232 10^3/uL (150-450); Red Blood Count 3.42 10^6/uL (4.70-6.10); Red Cell Distribution Width 16.3 % (11.0-15.0); White Blood Count 6.3 10^3/uL (4.0-11.0)
[2023-04-03 17:31] LABS: Anion Gap 11.2; BUN Creatinine Ratio 7.7; Carbon Dioxide 26.4 mmol/L (21.0-32.0); Chloride 104 mmol/L (98-107); Estimated GFR (African America >60 (>=60); Estimated GFR (Non-African Ame >60 (>=60); Glucose 94 mg/dL (74-106); Potassium 3.6 mmol/L (3.5-5.1); Sodium 138 mmol/L (136-145)
== END 2023-04-03 16:36 | disposition home or self-care (01) ==
LOC: LAB 16:37
PROVIDERS: PCP Family Medicine; Visit Provider Family Medicine
DX: D62 Acute posthemorrhagic anemia (principal); E11.22 Type 2 diabetes mellitus with diabetic chronic kidney disease; N18.31 Chronic kidney disease, stage 3a
CPT/HCPCS: 36415; 80048; 85025

== ENCOUNTER 2023-04-05 14:56 | Outpatient (REF) | payer BC, SELFPAY ==
[2023-04-05 16:55] LABS: C. Difficile PCR POSITIVE (NEGATIVE)
== END 2023-04-05 14:57 | disposition home or self-care (01) ==
LOC: LAB 14:56
PROVIDERS: PCP Family Medicine; Visit Provider Family Medicine
DX: R19.7 Diarrhea, unspecified (principal)
CPT/HCPCS: 87493